=== PATIENT | male | born 1960 | race Caucasian/White ===

== ENCOUNTER → 2017-06-02 15:54 | Outpatient (CLI) | payer MEDICARE, SELFPAY ==
[2017-06-02 18:01] LABS: Absolute Lymphocyte Count 0.98 X10^3/ul (0.83-4.51); Absolute Neutrophil Count 3.7 X10^3/uL (2.0-7.7); Basophil# 0.01 X10^3/uL; Basophil% 0.2 % (0-1); Eosinophil# 0.11 X10^3/uL; Eosinophils% 2.1 % (0-5); Hematocrit 37.6 % (40-54); Hemoglobin 12.6 g/dl (13.0-16.5); Lymphocyte # 0.98 X10^3/ul (4.0); Mean Corp Hgb Conc 33.5 g/gl (32-36); Mean Corpuscular Volume 107.4 fL (80-94); Mean Platelet Vol. 9.7 fl (6.2-12.0); Monocyte# 0.33 X10^3/uL; Monocyte% 6.4 % (0-10); Neutrophil # 3.71 X10^3/uL (2.7-7.7); Neutrophil % 72.1 % (47-70); Platelet Count 113 K/mm3 (150-450); RBC Distribution Width CV 15.3 % (11.6-14.6); RBC Distribution Width SD 59.8 fl (35.1-43.9); White Blood Count 5.2 K/mm3 (4.4-11.0)
[2017-06-02 18:02] LABS: POSITIVE COUNT NO; POSITIVE DIFFERENTIAL NO; POSITIVE MORPHOLOGY NO
[2017-06-02 18:14] LABS: AST(SGOT) 19 U/L (15-37); Alanine Aminotransfer ALT/SGPT 24 U/L (16-61); Albumin, Serum 3.3 g/dL (3.2-5.0); Alkaline Phosphatase 39 U/L (45-117); Anion Gap 8 (5-15); BUN 19 mg/dL (7-18); BUN/Creat Ratio 16.2 RATIO (10-20); Calcium,Total 8.8 mg/dL (8.5-10.1); Chloride 107 mmol/L (98-107); Creatinine, Serum 1.17 mg/dL (0.70-1.30); EST Glomerular Filtration Rate 68 mL/min (>60); Est Glom Filt Rate - Afr Amer 82 mL/min (>60); Globulin 3.4 g/dL (2.2-4.2); Glucose 83 mg/dL (74-106); Protein, Total 6.7 g/dL (6.4-8.2); Sodium Level 140 mmol/L (136-145)
[2017-06-05 14:22] LABS: HIV-1 RNA by PCR, Quant. < 20 copies/mL (.)
== END ==
PROVIDERS: Family Provider Family Medicine; PCP Family Medicine; Visit Provider Internal Medicine Infectious Disease
DX: B20 Human immunodeficiency virus [HIV] disease (principal)
CPT/HCPCS: 36415; 80053; 85025; 87536

== ENCOUNTER → 2017-06-22 11:39 | Outpatient (CLI) | payer MEDICARE, SELFPAY ==
--- NOTE | 2017-06-22 12:39 | RAD_ITS ---
STUDY: SWALLOWING STUDY REASON FOR EXAM: Male, 57 years old. Dysphagia. TECHNIQUE: The examination was performed with Speech Pathology in attendance. Under fluoroscopic observation, the patient ingested thin barium, thick barium, barium pudding, and barium coated cracker. FLUOROSCOPY TIME: 1:44 minutes/seconds. 1598 spot images were obtained. RADIOLOGIST INVOLVEMENT: Radiologist was present and providing direct supervision. COMPARISON: Comparison is made with prior study dated October 25, 2017. FINDINGS: The following was observed during swallowing of the various mixtures of barium: Thin Barium: Transient penetration with ingestion of thin liquids. Thick Barium: There was no evidence of aspiration or laryngeal penetration. Barium Pudding: There was no evidence of aspiration or laryngeal penetration. Barium Coated Cracker: There was no evidence of aspiration or laryngeal penetration. RAD/Swallowing Function w/Video IMPRESSION: Transient penetration with ingestion of thin liquids. The swallow study findings were discussed with the patient by the speech pathologist at the conclusion of the examination. Please see speech pathology report for more information and recommendations. Electronically Signed: Sumanth Bellamy MD at 10:39 EDT Tel [phone], Service support ,
--- NOTE | 2017-06-22 12:45 | SP.MBSS_ITS ---
PRIMARY / SECONDARY DIAGNOSIS: severe dysphagia (R13.12) REFERRING PHYSICIAN: Dr. Solomon Johnson MD CURRENT DIET: regular-soft textures, nectar thickened liquids DENTITION: dentures MENTAL STATUS: WFL RESPIRATORY STATUS: O2 via room air PREVIOUS MODIFIED BARIUM SWALLOW STUDY: 04/24/2017 MBS revealed moderate oropharyngeal dysphagia (R13.12) with SILENT aspiration of thin liquids 12/04/2016 MBS revealed severe oropharyngeal dysphagia (R13.12) with SILENT aspiration of thin and nectar thickened liquids REASON FOR REFERRAL: Patient is a 57 year old male referred for a modified barium swallow (MBS) study to objectively assess the Patients oropharyngeal swallow function under fluoroscopy, with recent history of eosinophilic esophagitis along with prior identification of SILENT aspiration of thin and nectar thickened liquids under fluoroscopy. 04/09/2017 barium swallow study revealed normal plain film x-ray examination (barium swallow) of the esophagus. 11/24/2016 barium swallow study revealed normal plain film x-ray examination (barium swallow) of the esophagus. 05/05/2016 barium swallow study revealed small sliding hiatal hernia without gastroesophageal reflux. PEG tube placed 12/09/2016; still in place. Spoke with the Patients primarily outpatient therapist, Patient has not been compliant with his liquid diet level recommendation as suspected, education provided with samples and education regarding preparation of nectar thickened liquids, though suspect continued non-compliance despite efforts. Patient reports use of thickened liquids with exception of morning coffee and during intake of thin liquids following oral care. MEDICAL HISTORY: Human immunodeficiency virus (HIV) infection, chronic obstructive pulmonary disease, chronic back pain, esophageal dysphagia with esophageal strictures, esophageal ulcers, and eosinophilic esophagitis, poor dental hygiene, anemia, chronic renal failure, xerostomia, bipolar disorder (recent admission for suicidal ideations), pancytopenia, hypothyroidism, history of alcohol abuse, hyperlipidemia, hypothyroidism, and tobacco use. STUDY FINDINGS: Patient participated in a Modified Barium Swallow (MBS) study on 06/22/2017. Dr. Bellamy was the radiologist present for this evaluation. This study was recorded in the lateral view and images were sent to PACs for storage. The following consistencies were presented to this patient for analysis of oropharyngeal swallow function: thin liquids, pudding, and a regular textured, Deanna Doone cookie. Results of the MBS are as follows: PENETRATION / ASPIRATION SCALE (GONZALEZ): 1 = does not enter airway 2 = enters airway/above vocal folds/ejected 3 = enters airway/above vocal folds/not ejected 4 = enters airway/contacts vocal folds/ejected 5 = enters airway/contacts vocal folds/not ejected 6 = enters airway/below vocal folds/ejected 7 = enters airway/below vocal folds/not ejected despite effort 8 = enters airway/below vocal folds/no effort PENETRATION / ASPIRATION SCALE (SCORE): [place] thickened liquids via cup (single sip): 1 [place] thickened liquids via cup (single sip): 1 [place] thickened liquids via cup (single sip): 1 [place] thickened liquids via cup (chin tuck): 1 [place] thickened liquids via cup (chin tuck): 1 [place] thickened liquids via cup (chin tuck): 1 Pudding via spoon: 1 Regular textured cookie: 1 Thin liquids via cup (single sip): 2 Thin liquids via cup (single sip): 2 Thin liquids via cup (chin tuck): 2 Thin liquids via cup (chin tuck): 3 Thin liquids via straw (sequential swallows): 2 IMPRESSION: DIAGNOSIS: mild oropharyngeal dysphagia (R13.12) ORAL PHASE CHARACTERIZED BY: LABIAL SEAL: no labial escape TONGUE CONTROL DURING BOLUS MANIPULATION: posterior escape of less than half of bolus (thin liquids only) (improved) BOLUS PREPARATION / MASTICATION: slow prolonged chewing/mashing with complete recollection BOLUS TRANSPORT / LINGUAL MOTION: brisk tongue motion (improved) ORAL RESIDUE: trace residue lining oral structures PHARYNGEAL PHASE CHARACTERIZED BY: INITIATION OF PHARYNGEAL SWALLOW: bolus head in pyriforms at first hyoid excursion; bolus head at posterior laryngeal surface of epiglottis at first hyoid excursion with chin tuck posture SOFT PALATE ELEVATION: no bolus between soft palate and pharyngeal wall LARYNGEAL ELEVATION: partial superior movement of thyroid cartilage/partial approximation of arytenoids cartilage to epiglottic petiole ANTERIOR HYOID EXCURSION: partial anterior movement EPIGLOTTIC MOVEMENT: intermittent partial epiglottic inversion LARYNGEAL VESTIBULE CLOSURE AT HEIGHT OF SWALLOW: intermittent incomplete laryngeal vestibule closure with narrow column of air/contrast in laryngeal vestibule PHARYNGEAL STRIPPING WAVE: pharyngeal stripping wave present / complete PHARYNGOESOPHAGEAL SEGMENT OPENING: complete distension and complete duration with no obstruction of flow TONGUE BASE RETRACTION: trace column of contrast between tongue base and posterior pharyngeal wall (improved) PHARYNGEAL RESIDUE: intermittent collection of residue within or on pharyngeal structures ESOPHAGEAL PHASE CHARACTERIZED BY: ESOPHAGEAL BOLUS CLEARANCE IN THE UPRIGHT POSITION: could not view EFFECTS OF TREATMENT STRATEGIES ATTEMPTED: Chin tuck posture = effective Reduced bolus size = effective DIET TEXTURE RECOMMENDATIONS: Will recommend a regular-soft textured, nectar thickened liquid diet. COMPENSATORY STRATEGIES RECOMMENDED: Chin tuck, reduced bolus volume, avoid straws, seated upright at 90 degrees during PO intake, remain upright for 30-60 minutes post meal (GERD precaution), medications with applesauce prior to, during, and following administration. INTERPRETATION OF RESULTS: Patient presents with mild oropharyngeal dysphagia (R13.12) likely secondary to a combination of human immunodeficiency virus (HIV) infection, chronic obstructive pulmonary disease, presbyphagia, and general deconditioning. Oral phase primarily marked by mild mastication inefficiency; and continued (albeit improving) suboptimal lingual control resulting in premature bolus loss contributing to prandial penetration. Pharyngeal phase marked by mild to moderately impaired pharyngeal swallow onset timing contributing to prandial penetration of thin liquids; mild reduction in airway closure during deglutition contributing to prandial penetration; adequate pharyngeal motility. Inconsistent laryngeal vestibule pressure generated to expel penetrated material (albeit improving). All deficits ameliorated with bolus volume adjustments, diet texture adjustments, and execution of the chin tuck posture. Patient noted to SILENTLY aspirate with thin and nectar thickened liquids during previous MBS studies (04/24/2017, 12/04/2016); though no aspiration appreciated throughout trials throughout current study, unable to definitively rule out silent aspiration. RECOMMENDATIONS: Recommend a repeat modified barium swallow study within 6-8 weeks (if clinically appropriate) to further assess the presence and extent of silent and overt aspiration prior to advancement to thin liquids. Would caution advancement to thin liquids at this time, as the Patient has demonstrated a gradual improvement in swallow functioning, with suspected higher risk of pulmonary complications / intolerance of aspiration secondary to immunocompromising diagnosis. Suspect higher likelihood of non-compliance with dietary recommendations, with suspected current non-compliance with dietary recommendations (intermittent non-compliance reported). Would recommend caution in regards to removal of the Patients PEG tube; although the Patient is demonstrating improved PO tolerance, would consider the Patient at high risk of aspiration. Would consider implementation of the [place]rivast[place] Free Water Protocol ( FFWP) following Patient and family education IF the Patient has the adequate level of supervision, though would suspect the Patient would experience difficulty with comprehension and adequate implementation. Patient requires intensive skilled speech-language intervention targeting continued diet texture management; training and implementation of recommended compensatory strategies; training, implementation, and Patient education regarding implementation of the FFWP (if placement is appropriate); Patient and caregiver training targeting meal preparation / thickened liquid preparation. ADDITIONAL COMMENTS/RECOMMENDATIONS: Results and recommendations were discussed with the Patient immediately following MBS completion, with the Patient verbalizing understanding and agreement with all recommendations and education provided. IMAGE COUNT: [id number] G-CODES: SWALLOWING [id number] Current Status: CJ SWALLOWING G8997 Goal Status: CI SWALLOWING [id number] Discharge Status: CJ
== END ==
PROVIDERS: Family Provider Family Medicine; PCP Family Medicine; Visit Provider Family Medicine
DX: R13.10 Dysphagia, unspecified (principal)
CPT/HCPCS: 74230; 92611; G8996; G8997; G8998

== ENCOUNTER → 2017-08-10 12:40 | Outpatient (CLI) | payer MEDICARE, SELFPAY ==
--- NOTE | 2017-08-10 13:00 | SP.MBSS_ITS ---
PRIMARY / SECONDARY DIAGNOSIS: mild oropharyngeal dysphagia (R13.12) REFERRING PHYSICIAN: Dr. Solomon Johnson MD CURRENT DIET: regular-soft textures, nectar thickened liquids DENTITION: dentures MENTAL STATUS: WNL RESPIRATORY STATUS: O2 via room air PREVIOUS MODIFIED BARIUM SWALLOW STUDY: 04/24/2017 MBS revealed moderate oropharyngeal dysphagia (R13.12) with SILENT aspiration of thin liquids 12/04/2016 MBS revealed severe oropharyngeal dysphagia (R13.12) with SILENT aspiration of thin and nectar thickened liquids. 06/22/2017 MBS revealed mild oropharyngeal dysphagia (R13.12) with intermittent transient penetration of thin liquids REASON FOR REFERRAL: Patient is a 57 year old male referred for a modified barium swallow (MBS) study to objectively assess the Patients oropharyngeal swallow function under fluoroscopy, with recent history of eosinophilic esophagitis along with prior identification of SILENT aspiration of thin and nectar thickened liquids under fluoroscopy. PEG tube placed 12/09/2016; still in place. Patient reports use of thickened liquids with exception of morning coffee and during intake of thin liquids following oral care. 04/09/2017 barium swallow study revealed normal plain film x-ray examination ( barium swallow) of the esophagus. 11/24/2016 barium swallow study revealed normal plain film x-ray examination ( barium swallow) of the esophagus. 05/05/2016 barium swallow study revealed small sliding hiatal hernia without gastroesophageal reflux. MEDICAL HISTORY: Human immunodeficiency virus (HIV) infection, chronic obstructive pulmonary disease, chronic back pain, esophageal dysphagia with esophageal strictures, esophageal ulcers, and eosinophilic esophagitis, poor dental hygiene, anemia, chronic renal failure, xerostomia, bipolar disorder (recent admission for suicidal ideations), pancytopenia, hypothyroidism, history of alcohol abuse, hyperlipidemia, hypothyroidism, and tobacco use. STUDY FINDINGS: Patient participated in a Modified Barium Swallow (MBS) study on 06/10/2017. Dr. Bellamy was the radiologist present for this evaluation. This study was recorded in the lateral view and images were sent to PACs for storage. The following consistencies were presented to this patient for analysis of oropharyngeal swallow function: thin liquids, nectar thickened liquids, pudding , and a regular textured, Deanna Doone cookie. Results of the MBS are as follows: PENETRATION / ASPIRATION SCALE (GONZALEZ): 1 = does not enter airway 2 = enters airway/above vocal folds/ejected 3 = enters airway/above vocal folds/not ejected 4 = enters airway/contacts vocal folds/ejected 5 = enters airway/contacts vocal folds/not ejected 6 = enters airway/below vocal folds/ejected 7 = enters airway/below vocal folds/not ejected despite effort 8 = enters airway/below vocal folds/no effort VIDEOFLOROSCOPIC SCALE SCORE (GONZALEZ): Grade I = aspiration of material that has penetrated into the laryngeal vestibule, intact cough reflex Grade II = aspiration < 10 % of the bolus, intact cough reflex Grade III = aspiration of < 10 % of the bolus, reduced cough reflex or aspiration of > 10 % of the bolus, intact cough reflex Grade IV = aspiration of > 10 % of the bolus, reduced cough reflex PENETRATION / ASPIRATION SCALE (SCORE) WITH VIDEOFLOROSCOPIC SCALE SCORE: Thin liquids via straw (sequential swallows): 8 - Grade III Thin liquids via cup (chin tuck): 1 Thin liquids via cup (chin tuck): 2 Thin liquids via cup (chin tuck): 2 Thin liquids via cup (chin tuck): 2 Thin liquids via cup (single sip): 2 [place] thickened liquids via cup (single sip): 1 Boaz thickened liquids via cup (single sip): 2 [place] thickened liquids via cup (single sip): 1 [place] thickened liquids via cup (single sip): 1 [place]az thickened liquids via cup (single sip): 2 Pudding via spoon: 1 Regular textured cookie: 1 Boaz thickened liquids via cup (chin tuck): 2 IMPRESSION: DIAGNOSIS: moderate oropharyngeal dysphagia (R13.12) ORAL PHASE CHARACTERIZED BY: LABIAL SEAL: no labial escape TONGUE CONTROL DURING BOLUS MANIPULATION: posterior escape of less than half of bolus BOLUS PREPARATION / MASTICATION: slow prolonged chewing/mashing with complete recollection BOLUS TRANSPORT / LINGUAL MOTION: brisk tongue motion ORAL RESIDUE: trace residue lining oral structures PHARYNGEAL PHASE CHARACTERIZED BY: INITIATION OF PHARYNGEAL SWALLOW: bolus head in pyriforms at first hyoid excursion SOFT PALATE ELEVATION: no bolus between soft palate and pharyngeal wall LARYNGEAL ELEVATION: partial superior movement of thyroid cartilage/partial approximation of arytenoids cartilage to epiglottic petiole ANTERIOR HYOID EXCURSION: partial anterior movement EPIGLOTTIC MOVEMENT: intermittent partial epiglottic inversion LARYNGEAL VESTIBULE CLOSURE AT HEIGHT OF SWALLOW: incomplete laryngeal vestibule closure with narrow column of air/contrast in laryngeal vestibule PHARYNGEAL STRIPPING WAVE: pharyngeal stripping wave present / complete PHARYNGOESOPHAGEAL SEGMENT OPENING: complete distension and complete duration with no obstruction of flow TONGUE BASE RETRACTION: trace column of contrast between tongue base and posterior pharyngeal wall PHARYNGEAL RESIDUE: intermittent collection of residue within or on pharyngeal structures ESOPHAGEAL PHASE CHARACTERIZED BY: ESOPHAGEAL BOLUS CLEARANCE IN THE UPRIGHT POSITION: could not view EFFECTS OF TREATMENT STRATEGIES ATTEMPTED: Chin tuck posture = moderately effective Reduced bolus size = moderately effective Removal of straw = effective DIET TEXTURE RECOMMENDATIONS: Will recommend a regular-soft textured, nectar thickened liquid diet. COMPENSATORY STRATEGIES RECOMMENDED: Reduced bolus volume, avoid straws, seated upright at 90 degrees during PO intake, remain upright for 30-60 minutes post meal (GERD precaution), medications with applesauce prior to, during, and following administration. INTERPRETATION OF RESULTS: Patient presents with moderate oropharyngeal dysphagia (R13.12) likely secondary to a combination of human immunodeficiency virus (HIV) infection, chronic obstructive pulmonary disease, presbyphagia, and general deconditioning , with results similar in nature to the 06/22/2017 MBS with the exception of SILENT aspiration during sequential trials of thin liquids via straw. Oral phase primarily marked by mild mastication inefficiency; and continued suboptimal lingual control resulting in premature bolus loss contributing to prandial penetration. Pharyngeal phase marked by mild to moderately impaired pharyngeal swallow onset timing contributing to prandial penetration of thin liquids; mild reduction in airway closure during deglutition contributing to prandial penetration; adequate pharyngeal motility. Inconsistent laryngeal vestibule pressure generated to expel penetrated material. All deficits ameliorated with bolus volume adjustments, diet texture adjustments, and execution of the chin tuck posture. Patient noted to SILENTLY aspirate with thin liquids during the current and previous MBS studies (04/24/2017, 12/04/2016 ), with clinical assessment at bedside relying on identification of classic overt signs and symptoms of aspiration unreliable. RECOMMENDATIONS: Would caution advancement to thin liquids, with suspected higher risk of pulmonary complications / intolerance of aspiration secondary to immunocompromising diagnosis. Suspect higher likelihood of non-compliance with dietary recommendations, with suspected current non-compliance with dietary recommendations (intermittent non-compliance reported). Would recommend caution in regards to removal of the Patients PEG tube; although the Patient is demonstrating improved PO tolerance, would consider the Patient at high risk of aspiration. Would consider continued implementation of the Srivast[place] Free Water Protocol (FFWP) following Patient and family education IF the Patient has the adequate level of supervision, though would suspect the Patient would experience difficulty with comprehension and adequate implementation. Patient requires intensive skilled speech-language intervention targeting continued diet texture management; training and implementation of recommended compensatory strategies; training, implementation, and Patient education regarding implementation of the FFWP; Patient and caregiver training targeting meal preparation / thickened liquid preparation. ADDITIONAL COMMENTS/RECOMMENDATIONS: Results and recommendations were discussed with the Patient immediately following MBS completion, with the Patient verbalizing understanding and agreement with all recommendations and education provided. IMAGE COUNT: 1945 G-CODES: SWALLOWING [id number] Current Status: SWALLOWING G8997 Goal Status: SWALLOWING G8998 Discharge Status:
--- NOTE | 2017-08-10 13:04 | RAD_ITS ---
STUDY: SWALLOWING STUDY REASON FOR EXAM: Male, 57 years old. Dysphagia. TECHNIQUE: The examination was performed with Speech Pathology in attendance. Under fluoroscopic observation, the patient ingested thin barium, thick barium, barium pudding, and barium coated cracker. FLUOROSCOPY TIME: 2:20 minutes/seconds. 1945 spot radiographs were obtained. RADIOLOGIST INVOLVEMENT: Radiologist was present and providing direct supervision. COMPARISON: None. FINDINGS: The following was observed during swallowing of the various mixtures of barium: Thin Barium: Silent aspiration with ingestion of thin liquids. Intermittent penetration with ingestion of thin liquids with the chin tuck maneuver. Thick Barium: Intermittent penetration with ingestion of nectar thickened liquids. Barium Pudding: There was no evidence of aspiration or laryngeal penetration. Barium Coated Cracker: There was no evidence of aspiration or laryngeal penetration. RAD/Swallowing Function w/Video IMPRESSION: Silent aspiration with ingestion of thin liquids. The swallow study findings were discussed with the patient by the speech pathologist at the conclusion of the examination. Please see speech pathology report for more information and recommendations. Electronically Signed: Sumanth Bellamy MD at 13:44 EDT Tel [phone], Service support ,
== END ==
PROVIDERS: Family Provider Family Medicine; PCP Family Medicine; Visit Provider Family Medicine
DX: R13.10 Dysphagia, unspecified (principal)
CPT/HCPCS: 74230; 92611; G8996; G8997; G8998

== ENCOUNTER → 2017-09-21 15:26 | Outpatient (CLI) | payer MEDICARE, SELFPAY ==
[2017-09-21 17:30] LABS: Hematocrit 40.7 % (40-54); Hemoglobin 14.2 g/dl (13.0-16.5); Mean Corp Hgb Conc 34.9 g/gl (32-36); Mean Corpuscular Hgb 36.2 pg (27.0-32.0); Mean Corpuscular Volume 103.8 fL (80-94); Mean Platelet Vol. 10.2 fl (6.2-12.0); Platelet Count 156 K/mm3 (150-450); RBC Distribution Width SD 52.6 fl (35.1-43.9); Red Blood Count 3.92 M/mm3 (4.6-6.2); White Blood Count 9.8 K/mm3 (4.4-11.0)
[2017-09-21 17:39] LABS: Scan Indicated on CBC? Y/N NO
[2017-09-21 17:59] LABS: ALB/GLOB Ratio 0.9 RATIO (0.9-2.4); AST(SGOT) 15 U/L (15-37); Alanine Aminotransfer ALT/SGPT 28 U/L (16-61); Albumin, Serum 3.2 g/dL (3.2-5.0); Alkaline Phosphatase 81 U/L (45-117); Anion Gap 8 (5-15); BUN 20 mg/dL (7-18); Calcium,Total 8.7 mg/dL (8.5-10.1); Chloride 104 mmol/L (98-107); Creatinine, Serum 1.11 mg/dL (0.70-1.30); EST Glomerular Filtration Rate 72 mL/min (>60); Est Glom Filt Rate - Afr Amer 87 mL/min (>60); Globulin 3.5 g/dL (2.2-4.2); Glucose 90 mg/dL (74-106); Potassium 3.8 mmol/L (3.5-5.1); Protein, Total 6.7 g/dL (6.4-8.2); Sodium Level 140 mmol/L (136-145); T4 Free Direct 0.99 ng/dL (0.76-1.46); Thyroid Stim Hormone (TSH) 2.47 uIU/mL (0.358-3.74)
== END ==
PROVIDERS: Family Provider Family Medicine; PCP Family Medicine; Visit Provider Family Medicine
DX: R13.10 Dysphagia, unspecified (principal); E03.9 Hypothyroidism, unspecified
CPT/HCPCS: 36415; 80053; 84439; 84443; 85027

== ENCOUNTER → 2017-09-24 16:52 | Outpatient (CLI) | payer MEDICARE, SELFPAY ==
--- NOTE | 2017-09-24 16:54 | RAD_ITS ---
STUDY: X-RAY - PELVIS REASON FOR EXAM: Male, 57 years old. Pain TECHNIQUE: One view of the pelvis was obtained. COMPARISON: None. FINDINGS: There is a non-specific bowel gas pattern. Normal visualized soft tissue structures. Normal bilateral iliac wings, sacroiliac joints and visualized sacrum. Normal visualized bilateral superior and inferior pubic rami. Normal pubic symphysis. Normal ischial tuberosities. Normal visualized right femoral head. Normal right acetabulum. Normal right hip joint. Normal visualized left femoral head. Normal left acetabulum. Normal left hip joint. RAD/Pelvis 1 or 2 Views IMPRESSION: Normal x-ray examination of the pelvis. No fracture Electronically Signed: Aubrey Dinero, at 5:17 EDT Tel , Service support ,
--- NOTE | 2017-09-24 16:54 | RAD_ITS ---
STUDY: X-RAY - SACRUM/COCCYX REASON FOR EXAM: Male, 57 years old. Pain TECHNIQUE: 3 view(s) of the sacrum and coccyx were obtained. COMPARISON: None. FINDINGS: L5-S1 disc space narrowing with a 2 cm spondylolisthesis of L5 over S1. There are no fractures of the sacrococcygeal bones Electronically Signed: Aubrey Dinero, at 5:19 EDT Tel , Service support , RAD/Sacrum-Coccyx min 2 Views
== END ==
PROVIDERS: Family Provider Family Medicine; PCP Family Medicine; Visit Provider Anesthesiology Pain Medicine
DX: R10.2 Pelvic and perineal pain (principal); M43.17 Spondylolisthesis, lumbosacral region
CPT/HCPCS: 72170; 72220

== ENCOUNTER → 2017-10-28 07:23 | Outpatient (CLI) | payer MEDICARE, SELFPAY ==
[2017-10-28 08:09] LABS: Absolute Lymphocyte Count 2.49 X10^3/ul (0.83-4.51); Absolute Neutrophil Count 5.7 X10^3/uL (2.0-7.7); Basophil# 0.05 X10^3/uL; Basophil% 0.5 % (0-1); Eosinophils% 2.1 % (0-5); Hemoglobin 15.7 g/dl (13.0-16.5); Lymphocyte # 2.49 X10^3/ul (4.0); Lymphocyte % 26.6 % (19-41); Mean Corp Hgb Conc 34.9 g/gl (32-36); Mean Corpuscular Hgb 36.6 pg (27.0-32.0); Mean Corpuscular Volume 104.9 fL (80-94); Mean Platelet Vol. 9.9 fl (6.2-12.0); Monocyte# 0.81 X10^3/uL; Monocyte% 8.7 % (0-10); Neutrophil % 60.9 % (47-70); Platelet Count 196 K/mm3 (150-450); RBC Distribution Width CV 14.9 % (11.6-14.6); RBC Distribution Width SD 57.1 fl (35.1-43.9); Red Blood Count 4.29 M/mm3 (4.6-6.2); White Blood Count 9.4 K/mm3 (4.4-11.0)
[2017-10-28 08:15] LABS: POSITIVE COUNT NO; POSITIVE DIFFERENTIAL NO; POSITIVE MORPHOLOGY NO
[2017-10-28 08:29] LABS: ALB/GLOB Ratio 0.7 RATIO (0.9-2.4); AST(SGOT) 15 U/L (15-37); Alanine Aminotransfer ALT/SGPT 19 U/L (16-61); Albumin, Serum 3.1 g/dL (3.2-5.0); Alkaline Phosphatase 113 U/L (45-117); Anion Gap 7 (5-15); BUN 8 mg/dL (7-18); BUN/Creat Ratio 7.2 RATIO (10-20); Calcium,Total 9.1 mg/dL (8.5-10.1); Chloride 105 mmol/L (98-107); Cholesterol 216 mg/dL (200); Creatinine, Serum 1.11 mg/dL (0.70-1.30); EST Glomerular Filtration Rate 72 mL/min (>60); Est Glom Filt Rate - Afr Amer 87 mL/min (>60); Globulin 4.2 g/dL (2.2-4.2); Glucose 85 mg/dL (74-106); High Density Lipoprotein 24 mg/dL; Protein, Total 7.3 g/dL (6.4-8.2); Sodium Level 139 mmol/L (136-145); Triglycerides 314 mg/dL; Very Low Density Lipoprotein 63 mg/dL (5-40)
[2017-10-30 15:35] LABS: HIV-1 RNA by PCR, Quant. 40 copies/mL (.); LOG10 HIV-1 RNA 1.602 (.)
== END ==
PROVIDERS: Family Provider Family Medicine; PCP Family Medicine
DX: B20 Human immunodeficiency virus [HIV] disease (principal); E78.5 Hyperlipidemia, unspecified
CPT/HCPCS: 36415; 80053; 80061; 85025; 87536

== ENCOUNTER 2017-11-05 09:30 | Outpatient (RCR) | payer MEDICARE, SELFPAY ==
--- NOTE | 2017-06-11 11:24 | ST ---
PRIMARY / SECONDARY DIAGNOSIS: dysphagia (R13.12) REFERRING PHYSICIAN: Dr. Solomon Johnson MD CURRENT DIET: unclear: reports consumption of regular textures, thin liquids with PEG supplementation DENTITION: dentures MENTAL STATUS: suboptimal RESPIRATORY STATUS: O2 via room air PREVIOUS MODIFIED BARIUM SWALLOW STUDY: 12/04/2016 MBS revealed severe oropharyngeal dysphagia (R13.12) with SILENT aspiration of thin and nectar thickened liquids REASON FOR REFERRAL: Patient is a 56 year old male referred for a modified barium swallow (MBS) study to objectively assess the Patients oropharyngeal swallow function under fluoroscopy, with recent history of eosinophilic esophagitis along with prior identification of SILENT aspiration of thin and nectar thickened liquids under fluoroscopy. 04/09/2017 barium swallow study revealed normal plain film x-ray examination (barium swallow) of the esophagus. 11/24/2016 barium swallow study revealed normal plain film x-ray examination (barium swallow) of the esophagus. 05/05/2016 barium swallow study revealed small sliding hiatal hernia without gastroesophageal reflux. PEG tube placed 12/09/2016. MEDICAL HISTORY: Human immunodeficiency virus (HIV) infection, chronic obstructive pulmonary disease, chronic back pain, esophageal dysphagia with esophageal strictures, esophageal ulcers, and eosinophilic esophagitis, poor dental hygiene, anemia, chronic renal failure, xerostomia, bipolar disorder (recent admission for suicidal ideations), pancytopenia, hypothyroidism, history of alcohol abuse, hyperlipidemia, hypothyroidism, and tobacco use STUDY FINDINGS: Patient participated in a Modified Barium Swallow (MBS) study on 04/23/2017. Dr. Bellamy was the radiologist present for this evaluation. This study was recorded in the lateral view and images were sent to PACs for storage. The following consistencies were presented to this patient for analysis of oropharyngeal swallow function: thin liquids, nectar thickened liquids, pudding, and a regular textured, Deanna Doone cookie. Results of the MBS are as follows: PENETRATION / ASPIRATION SCALE (GONZALEZ): 1 = does not enter airway 2 = enters airway/above vocal folds/ejected 3 = enters airway/above vocal folds/not ejected 4 = enters airway/contacts vocal folds/ejected 5 = enters airway/contacts vocal folds/not ejected 6 = enters airway/below vocal folds/ejected 7 = enters airway/below vocal folds/not ejected despite effort 8 = enters airway/below vocal folds/no effort VIDEOFLOROSCOPIC SCALE SCORE (GONZALEZ): Grade I = aspiration of material that has penetrated into the laryngeal vestibule, intact cough reflex Grade II = aspiration < 10 % of the bolus, intact cough reflex Grade III = aspiration of < 10 % of the bolus, reduced cough reflex or aspiration of > 10 % of the bolus, intact cough reflex Grade IV = aspiration of > 10 % of the bolus, reduced cough reflex PENETRATION / ASPIRATION SCALE (SCORE) WITH VIDEOFLOROSCOPIC SCALE SCORE: Thin liquids via cup (sequential swallows): 6 Thin liquids via cup (sequential swallows): 3 Thin liquids via cup (single sip): 1 Thin liquids via cup (single sip): 4 Thin liquids via straw (single sip): 4 Thin liquids via straw (chin tuck): 2 Thin liquids via straw (chin tuck): 1 Thin liquids via straw (chin tuck): 1 Pudding via spoon: 1 Regular textured cookie: 1 Thin liquids via straw (chin tuck): 8 - Grade III Thin liquids via straw (chin tuck): 1 [place] thickened liquids via cup (single sip): 4 [place] thickened liquids via cup (chin tuck): 1 [place] thickened liquids via cup (chin tuck): 1 [place] thickened liquids via cup (chin tuck): 1 IMPRESSION: DIAGNOSIS: moderate oropharyngeal dysphagia (R13.12) ORAL PHASE CHARACTERIZED BY: LABIAL SEAL: no labial escape TONGUE CONTROL DURING BOLUS MANIPULATION: intermittent posterior escape of greater than half of bolus; consistent posterior escape of less than half of bolus BOLUS PREPARATION / MASTICATION: slow prolonged chewing/mashing with complete recollection (improved) BOLUS TRANSPORT / LINGUAL MOTION: delayed initiation of tongue motion (improved) ORAL RESIDUE: trace residue lining oral structures (improved) PHARYNGEAL PHASE CHARACTERIZED BY: INITIATION OF PHARYNGEAL SWALLOW: bolus head at posterior laryngeal surface of epiglottis at first hyoid excursion SOFT PALATE ELEVATION: no bolus between soft palate and pharyngeal wall LARYNGEAL ELEVATION: partial superior movement of thyroid cartilage/partial approximation of arytenoids cartilage to epiglottic petiole (improved) ANTERIOR HYOID EXCURSION: partial anterior movement (improved) EPIGLOTTIC MOVEMENT: partial epiglottic inversion LARYNGEAL VESTIBULE CLOSURE AT HEIGHT OF SWALLOW: incomplete laryngeal vestibule closure with narrow column of air/contrast in laryngeal vestibule PHARYNGEAL STRIPPING WAVE: pharyngeal stripping wave present / complete (improved) PHARYNGOESOPHAGEAL SEGMENT OPENING: complete distension and complete duration with no obstruction of flow (improved) TONGUE BASE RETRACTION: narrow column of contrast between tongue base and posterior pharyngeal wall PHARYNGEAL RESIDUE: collection of residue within or on pharyngeal structures (improved) primarily with more viscous textures ESOPHAGEAL PHASE CHARACTERIZED BY: ESOPHAGEAL BOLUS CLEARANCE IN THE UPRIGHT POSITION: could not view EFFECTS OF TREATMENT STRATEGIES ATTEMPTED: Chin tuck posture = effective Double swallow = effective Reduced bolus size = effective Removal of straw = effective DIET TEXTURE RECOMMENDATIONS: Will recommend a regular-soft textured, nectar thickened liquid diet. COMPENSATORY STRATEGIES RECOMMENDED: Chin tuck, reduced bolus volume, avoid straws, seated upright at 90 degrees during PO intake, remain upright for 30-60 minutes post meal (GERD precaution), medications with applesauce prior to, during, and following administration. INTERPRETATION OF RESULTS: Patient presents with moderate oropharyngeal dysphagia (R13.12) likely secondary to a combination of human immunodeficiency virus (HIV) infection, chronic obstructive pulmonary disease, presbyphagia, and general deconditioning. Oral phase primarily marked by mild mastication inefficiency; and continued suboptimal lingual control resulting in premature bolus loss contributing to pre-prandial penetration and aspiration. Pharyngeal phase marked by mild to moderate delayed pharyngeal swallow onset timing contributing to prandial and pre-prandial penetration and aspiration; mild to moderate reduced closure of the airway during deglutition contributing to prandial penetration; improved pharyngeal motility. Inconsistent laryngeal vestibule pressure generated to expel penetrated material. Patient noted to SILENTLY aspirate with thin liquids, with clinical assessment at bedside relying on identification of classic overt signs and symptoms of aspiration unreliable. RECOMMENDATIONS: Would strongly discourage advancement past nectar thickened liquids without completion of a repeat modified barium swallow study due to the extent of aspirate identified that was SILENT in nature. Recommend a repeat modified barium swallow study within 4-6 weeks (if clinically appropriate) to further assess the presence and extent of silent and overt aspiration prior to advancement to thin liquids. Suspect high likelihood of non-compliance with dietary recommendations, with suspected current non-compliance with dietary recommendations (states he was cleared to advance from dietary restrictions, though it is highly unlikely that a clinician would advance an individual with significant silent aspiration without completion of an objective assessment via MBS or FEES). Would recommend significant caution in regards to removal of the Patients PEG tube, as the Patient remains at high risk of aspiration, with multiple medical complications complicating the efficiency of the immune system, with the Patient at higher likelihood to again require intake supplementation with prolonged re-hospitalization. Would consider implementation of the Srivastava Free Water Protocol (FFWP) following Patient and family education IF the Patient has the adequate level of supervision, though would suspect the Patient would experience difficulty with comprehension and adequate implementation. Patient requires intensive skilled speech-language intervention targeting continued diet texture management; training and implementation of recommended compensatory strategies; training, implementation, and Patient education regarding implementation of the FFWP (if placement is appropriate); Patient and caregiver training targeting meal preparation / thickened liquid preparation. ADDITIONAL COMMENTS/RECOMMENDATIONS: Results and recommendations were discussed with the Patient immediately following MBS completion, with the Patient verbalizing understanding and agreement with all recommendations and education provided. IMAGE COUNT: [id number] G-CODES: SWALLOWING [id number] Current Status: CK SWALLOWING G8997 Goal Status: CK SWALLOWING [id number] Discharge Status: 04/24/17 1446 <Electronically signed by Fabrice Newberry M.A., CFY-BR[employer] SIDING APPLICATOR> Date Fabrice Newberry M.A., CFY-[employer] S[employer]ING APPLICATOR
--- NOTE | 2017-06-11 11:27 | HP.SP.AD_ITS ---
History - History Date of Eval: 06/11/17 Medical Diagnosis (from RX): Dysphagia Previous speech therapy: Yes Results: At [facility] while there for 7 weeks. Other Relevant Medical History/Diagnoses/Surgery: Alcoholism, Bipolar, HIV +, COPD, Eonsinophilia. Last summer patient became weaker and weaker and lost weight. Mental illness has been ongoing. Medications related to this diagnosis: Finasteride, Levothyroxine, SMz.tpm, Norvir, Prezista, Vitamin D, Tamsulosin, Fairlea, Quetiapine, Culturelle, Gabapentin, Metoclopram, Pimidone Smoking Status: Smoker, status unknown Hx Smoking: Yes - cigar Hx Tobacco Use: No - Pain Is pain an issue with your current prescribed condition?: No - Personal Education History: High school graduate. Occupation: Disability Right Hearing Abillity: Hard of Hearing Left Hearing Abillity: Hard of Hearing Visual Assistive Devices: Glasses Patients Living Arrangements: Alone Patient Allergies - Allergies Allergies cephalexin monohydrate [From Keflex] Allergy (Severe, Verified 05/07/17 11:31) Swelling Penicillins [PCN] Allergy (Severe, Verified 05/07/17 11:31) Unknown Subjective Oral Motor - Subjective Dentures ill fitting: Yes - Comments Comments: Dentures are loose but he uses therogrip to keep them in place. He said they stay in place usually well for 2 days. Objective Oral Motor - Oral Status Dentition: Upper Dentures - Labial Observation at Rest: WNL Pucker: WNL Retraction: WNL Alternating Pucker/Retraction: WNL Involuntary Movement noted: No - Lingual Impairment: Mild Protrusion: WNL Retraction: WNL Lateralization: WNL - Lingual Comments Comments: Elevation was mildly reduced. - Jaw Impairment: WNL Opening: WNL Closing: WNL - Respiratory Status Respiratory Status: Room Air Subjective Dysphagia - Symptoms Reported Symptoms/Problems with: Xerostomia, Hx of Aspiration - Current Diet Solids Current Diet: Soft - Current Diet Liquids Current Liquids: Thin Objective Dysphagia - Administered by Administered by: Self - [place] Thickened Liquids Administered via: Cup Symptoms: Throat Clearing Laryngeal Elevation: Impaired Positioning: Chin Tuck Other Positioning: Only intermittent use of chin tuck Oral Holding: No Gagging: No Patient Report: Patient reported no deficits. Comments: Noted wet vocal quality without using chin tuck one time out of three drinks. He intermittently used a chin tuck and a natural double swallow. - Results Swallowing Within Normal Limits: No Swallowing Diagnosis: Oropharyngeal Phase Dysphagia Severity: Moderate Modified Barium Results Hx MBS Report Entered: Yes MBS Results (from prior exam): 06/11/17 11:24 Speech Therapy by Ronaldo Plata PRIMARY / SECONDARY DIAGNOSIS: dysphagia (R13.12) REFERRING PHYSICIAN: Dr. Solomon Johnson MD CURRENT DIET: unclear: reports consumption of regular textures, thin liquids with PEG supplementation DENTITION: dentures MENTAL STATUS: suboptimal RESPIRATORY STATUS: O2 via room air PREVIOUS MODIFIED BARIUM SWALLOW STUDY: 12/04/2016 MBS revealed severe oropharyngeal dysphagia (R13.12) with SILENT aspiration of thin and nectar thickened liquids REASON FOR REFERRAL: Patient is a 56 year old male referred for a modified barium swallow (MBS) study to objectively assess the Patients oropharyngeal swallow function under fluoroscopy, with recent history of eosinophilic esophagitis along with prior identification of SILENT aspiration of thin and nectar thickened liquids under fluoroscopy. 04/09/2017 barium swallow study revealed normal plain film x-ray examination (barium swallow) of the esophagus. 11/24/2016 barium swallow study revealed normal plain film x-ray examination (barium swallow) of the esophagus. 05/05/2016 barium swallow study revealed small sliding hiatal hernia without gastroesophageal reflux. PEG tube placed 12/09/2016. MEDICAL HISTORY: Human immunodeficiency virus (HIV) infection, chronic obstructive pulmonary disease, chronic back pain, esophageal dysphagia with esophageal strictures, esophageal ulcers, and eosinophilic esophagitis, poor dental hygiene, anemia, chronic renal failure, xerostomia, bipolar disorder (recent admission for suicidal ideations), pancytopenia, hypothyroidism, history of alcohol abuse, hyperlipidemia, hypothyroidism, and tobacco use STUDY FINDINGS: Patient participated in a Modified Barium Swallow (MBS) study on 04/23/2017. Dr. Bellamy was the radiologist present for this evaluation. This study was recorded in the lateral view and images were sent to PACs for storage. The following consistencies were presented to this patient for analysis of oropharyngeal swallow function: thin liquids, nectar thickened liquids, pudding , and a regular textured, Deanna Doone cookie. Results of the MBS are as follows: PENETRATION / ASPIRATION SCALE (GONZALEZ): 1 = does not enter airway 2 = enters airway/above vocal folds/ejected 3 = enters airway/above vocal folds/not ejected 4 = enters airway/contacts vocal folds/ejected 5 = enters airway/contacts vocal folds/not ejected 6 = enters airway/below vocal folds/ejected 7 = enters airway/below vocal folds/not ejected despite effort 8 = enters airway/below vocal folds/no effort VIDEOFLOROSCOPIC SCALE SCORE (GONZALEZ): Grade I = aspiration of material that has penetrated into the laryngeal vestibule, intact cough reflex Grade II = aspiration < 10 % of the bolus, intact cough reflex Grade III = aspiration of < 10 % of the bolus, reduced cough reflex or aspiration of > 10 % of the bolus, intact cough reflex Grade IV = aspiration of > 10 % of the bolus, reduced cough reflex PENETRATION / ASPIRATION SCALE (SCORE) WITH VIDEOFLOROSCOPIC SCALE SCORE: Thin liquids via cup (sequential swallows): 6 Thin liquids via cup (sequential swallows): 3 Thin liquids via cup (single sip): 1 Thin liquids via cup (single sip): 4 Thin liquids via straw (single sip): 4 Thin liquids via straw (chin tuck): 2 Thin liquids via straw (chin tuck): 1 Thin liquids via straw (chin tuck): 1 Pudding via spoon: 1 Regular textured cookie: 1 Thin liquids via straw (chin tuck): 8 - Grade III Thin liquids via straw (chin tuck): 1 [place] thickened liquids via cup (single sip): 4 [place] thickened liquids via cup (chin tuck): 1 [place] thickened liquids via cup (chin tuck): 1 [place] thickened liquids via cup (chin tuck): 1 IMPRESSION: DIAGNOSIS: moderate oropharyngeal dysphagia (R13.12) ORAL PHASE CHARACTERIZED BY: LABIAL SEAL: no labial escape TONGUE CONTROL DURING BOLUS MANIPULATION: intermittent posterior escape of greater than half of bolus; consistent posterior escape of less than half of bolus BOLUS PREPARATION / MASTICATION: slow prolonged chewing/mashing with complete recollection (improved) BOLUS TRANSPORT / LINGUAL MOTION: delayed initiation of tongue motion (improved ) ORAL RESIDUE: trace residue lining oral structures (improved) PHARYNGEAL PHASE CHARACTERIZED BY: INITIATION OF PHARYNGEAL SWALLOW: bolus head at posterior laryngeal surface of epiglottis at first hyoid excursion SOFT PALATE ELEVATION: no bolus between soft palate and pharyngeal wall LARYNGEAL ELEVATION: partial superior movement of thyroid cartilage/partial approximation of arytenoids cartilage to epiglottic petiole (improved) ANTERIOR HYOID EXCURSION: partial anterior movement (improved) EPIGLOTTIC MOVEMENT: partial epiglottic inversion LARYNGEAL VESTIBULE CLOSURE AT HEIGHT OF SWALLOW: incomplete laryngeal vestibule closure with narrow column of air/contrast in laryngeal vestibule PHARYNGEAL STRIPPING WAVE: pharyngeal stripping wave present / complete ( improved) PHARYNGOESOPHAGEAL SEGMENT OPENING: complete distension and complete duration with no obstruction of flow (improved) TONGUE BASE RETRACTION: narrow column of contrast between tongue base and posterior pharyngeal wall PHARYNGEAL RESIDUE: collection of residue within or on pharyngeal structures ( improved) primarily with more viscous textures ESOPHAGEAL PHASE CHARACTERIZED BY: ESOPHAGEAL BOLUS CLEARANCE IN THE UPRIGHT POSITION: could not view EFFECTS OF TREATMENT STRATEGIES ATTEMPTED: Chin tuck posture = effective Double swallow = effective Reduced bolus size = effective Removal of straw = effective DIET TEXTURE RECOMMENDATIONS: Will recommend a regular-soft textured, nectar thickened liquid diet. COMPENSATORY STRATEGIES RECOMMENDED: Chin tuck, reduced bolus volume, avoid straws, seated upright at 90 degrees during PO intake, remain upright for 30-60 minutes post meal (GERD precaution), medications with applesauce prior to, during, and following administration. INTERPRETATION OF RESULTS: Patient presents with moderate oropharyngeal dysphagia (R13.12) likely secondary to a combination of human immunodeficiency virus (HIV) infection, chronic obstructive pulmonary disease, presbyphagia, and general deconditioning. Oral phase primarily marked by mild mastication inefficiency; and continued suboptimal lingual control resulting in premature bolus loss contributing to pre-prandial penetration and aspiration. Pharyngeal phase marked by mild to moderate delayed pharyngeal swallow onset timing contributing to prandial and pre-prandial penetration and aspiration; mild to moderate reduced closure of the airway during deglutition contributing to prandial penetration; improved pharyngeal motility. Inconsistent laryngeal vestibule pressure generated to expel penetrated material. Patient noted to SILENTLY aspirate with thin liquids, with clinical assessment at bedside relying on identification of classic overt signs and symptoms of aspiration unreliable. RECOMMENDATIONS: Would strongly discourage advancement past nectar thickened liquids without completion of a repeat modified barium swallow study due to the extent of aspirate identified that was SILENT in nature. Recommend a repeat modified barium swallow study within 4-6 weeks (if clinically appropriate) to further assess the presence and extent of silent and overt aspiration prior to advancement to thin liquids. Suspect high likelihood of non-compliance with dietary recommendations, with suspected current non-compliance with dietary recommendations (states he was cleared to advance from dietary restrictions, though it is highly unlikely that a clinician would advance an individual with significant silent aspiration without completion of an objective assessment via MBS or FEES). Would recommend significant caution in regards to removal of the Patients PEG tube, as the Patient remains at high risk of aspiration, with multiple medical complications complicating the efficiency of the immune system , with the Patient at higher likelihood to again require intake supplementation with prolonged re-hospitalization. Would consider implementation of the Srivastava Free Water Protocol (FFWP) following Patient and family education IF the Patient has the adequate level of supervision, though would suspect the Patient would experience difficulty with comprehension and adequate implementation. Patient requires intensive skilled speech-language intervention targeting continued diet texture management; training and implementation of recommended compensatory strategies; training, implementation, and Patient education regarding implementation of the FFWP (if placement is appropriate); Patient and caregiver training targeting meal preparation / thickened liquid preparation. ADDITIONAL COMMENTS/RECOMMENDATIONS: Results and recommendations were discussed with the Patient immediately following MBS completion, with the Patient verbalizing understanding and agreement with all recommendations and education provided. IMAGE COUNT: [id number] G-CODES: SWALLOWING [id number] Current Status: CK SWALLOWING G8997 Goal Status: CK SWALLOWING [id number] Discharge Status: 04/24/17 1446 <Electronically signed by Fabrice Newberry M.A., CFY-[employer]MON[employer] PASTE MIXER> Date Fabrice Newberry M.A., CFY-[employer]MON[employer] PASTE MIXER Electronically signed by Ronaldo Plata M.A., [facility]-ALMON[employer] PASTE MIXER on 06/11/17 11:25 Initialized on 06/11/17 11:24 - END OF NOTE Dysphagia Assessment - Swallowing Impairment Contributing Factors to Swallowing Impairment: Reduced Laryngeal Excursion - Impact Impact on Safety & Functioning: Risk for Aspiration - Recommendations Modified Barium Swallow/Cookie Swallow Recommended: Yes - Diet Texture Recommendations Liquids: [place] Thick - Safety Saftey Precautions/Swallowing Recommendations (Check all that Apply): Upright Position at Least 30 Minutes After Meals, No Straw, Multiple Swallows - Compensatory Strategies Compensatory Strategies: Chin Tuck, Double Swallow Other Impressions - Comments Compliance -: Brett has not been compliant with his liquid diet level recommendation. He was given extensive education on why to thicken liquids. He was given samples of thickener. Plan - Plan Plan: Repeat MBS before treatment is planned. Goals will be added as appropriate and necessasry. - Recommendations MBS: Yes - Prognosis Prognosis: Good - Goal #1-5 Goal #1: Goals pending MBS. Education - Patient has Indicated that the Following Identified Educational Needs: None The Patient has indicated that they have no educational or learning abilities that may effect their care.: Yes - Patient Instruction Patient Education: Diagnosis, Treatment Plan, Goals, Safety Precautions, Diet Level Person Taught: Patient Teaching Method: Discussion Response to teaching: Verbalize understanding
--- NOTE | 2017-11-05 12:52 | HP.SP.DC_ITS ---
ST Discharge Summary - Discharged: Discharge: The Patient has participated in 5 skilled speech-language intervention sessions targeting moderate oropharyngeal dysphagia (R13.12) likely secondary to a combination of human immunodeficiency virus (HIV) infection, chronic obstructive pulmonary disease, presbyphagia, and general deconditioning, with grade III SILENT aspiration identified under fluoroscopy. The Patient currently is managing diet preparation without complication (nectar thickened liquids) and has demonstrated sufficient execution of postural adjustments to facilitate optimal intake safety, though admits to non- compliance with morning coffee / intermittently during intake of coffee during AA meetings, and occasional intake of thin liquid soda. Patient fully aware and able to express aspiration risk and potential medical complications with recurrent aspiration, with continued intention to continue with current level of adherence due to considerations for quality of life, which is reasonable given demonstrated level of insight. The Patient is considered at higher risk of pulmonary complications associated with aspiration when considering medical diagnosis (HIV) and nature of aspiration (silent). Patient reporting that he was recently prescribed Quetiapine / Seroquel, which does have an association with silent aspiration (though would caution direct attribution), again further questions diagnosis of chronic obstructive pulmonary disease, as both were identified as potential risk factors for silent aspiration. At current juncture all goals have been met, with both this clinician and the Patent agree to advance with discharge
== END 2017-11-05 19:00 | disposition home or self-care (01) ==
LOC: SP 09:30
PROVIDERS: Family Provider Family Medicine; PCP Family Medicine; Visit Provider Family Medicine
DX: R49.0 Dysphonia (principal)
CPT/HCPCS: 92526

== ENCOUNTER → 2017-11-16 15:03 | Outpatient (CLI) | payer MEDICARE, SELFPAY | PROVIDERS: Family Provider Family Medicine; PCP Family Medicine; Visit Provider Anesthesiology Pain Medicine | DX: M54.16 Radiculopathy, lumbar region (principal); M51.36 Other intervertebral disc degeneration, lumbar region; M54.5 Low back pain; M54.18 Radiculopathy, sacral and sacrococcygeal region; M51.37 Other intervertebral disc degeneration, lumbosacral region; M46.1 Sacroiliitis, not elsewhere classified | CPT/HCPCS: 72148 ==

== ENCOUNTER 2017-12-30 15:30 | Outpatient (RCR) | payer MEDICARE, SELFPAY ==
--- NOTE | 2017-12-02 09:28 | HP.PTEVAL_ITS ---
Patient's Visit Information KATHYA YORK is a 57 year old M referred to Physical Therapy by Issa Snow with a diagnosis of BACK AND NECK PAIN. Date of Evaluation: 12/02/17 Physical Therapist: Tia Razo - Visit Plan Frequency: 2-3x /Week Duration: 4-6 Weeks Plan: *NO LUMBAR EXTENSION* POSTURE CORRECTION/STRENGTHENING, INSTRUCTION IN APPROPRIATE BODY MECHANICS AND ACTIVITY MODIFICATIONS. DLS WITH NEUTRAL SPINE. ALLISON LE ROM, STRETCHING AND STRENGTHENING. *FOCUS ON WRITTEN HEP INSTRUCTION* - Subjective Subjective: Work/Leisure: UNEMPLOYEED. Disability: YES - BIPOLAR DISORDER. Present symptoms: ALLISON LOW BACK PAIN LEFT > RIGHT. LEFT HIP PAIN. Present since: YEARS AGO. Pain Scale: WORST 8/10, LEAST 1/10. Currently: 07/07. Commenced as a result of: ARTHRITIS. Symptoms at onset: BACK. Worse: SHOPPING AT [employer] YESTERDAY - CAUSED PINCHING IN LEFT HIP. BENDING, LIFTING, STANDING, WALKING, TWISTING, MOVING FAST. Better: [facility]. HAS BEEN SLEEPING IN [place] FOR 35 YEARS BECAUSE OF BACK. Disturbed sleep: NO. Previous history/Previous treatment: NO BACK OR HIP PAIN EXCEPT VARICOSE SX LEFT HIP ABOUT 10 YEARS AGO. PAIN MGMT. LAST INJECTION WAS IN LEFT HIP ABOUT 10 DAYS AGO. LONG HISTORY OF RICO'S. DEC 2016 WAS IN HOSPITAL THEN WENT TO REHAB FOR RECONDITIONING AT THE [facility]. CHIROPRACTIC ABOUT 20 YEARS AGO. Coughing/sneezing/straining: POSITIVE. Gait: USES THE CANE OUT OF HOME USUALLY FOR BALANCE BUT DOES NOT USE AD IN HOME. Difficulty initiating urinatin : NO. Accidents: NO. Unexplained weight loss: NO. Imaging: RECENT LUMBAR MRI: MRI/Spine Lumbar (Routine). 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 PMH: RECOVERING ACOHOLIC - 10 YEARS SOBER. G-TUBE FOR NUTRITION - HAS HAD IT FOR A YEAR. HIV POSITIVE. - Objective Sitting/Standing Posture: POOR. VERY SLOUCHED. FORWARD HEAD AND SHOULDERS. RIGHT ILIAC CREST HIGHER THAN LEFT. Lordosis: REDUCED. Active Correction of posture: WORSE. Other Observations: THIS PATIENT AMBULATES INDEP'LY INTO PT WITH A STRAIGHT CANE AND NO LOSS OF BALANCE. HE IS UNABLE TO TRANSFER FROM SIT TO STAND WITHOUT UE ASSIST. HE HAS POOR POSTURAL STRENGTH. Motor deficit: RIGHT LE 5/5. LLE: HIP 3+/5, KNEE EXT 4-/5, KNEE FLEX 4-/5, ANKLE 4/5. Sensory deficit: NO. ROM deficit: VERY TIGHT HIP FLEXORS, HS'S AND GASTROC SOLEUS COMPLEX'S. Dural Signs: NEGATIVE ALLISON LE'S. Lumbar mvmt loss: flex - MIN. ext - NT. R SG - SIMEON. L SG - SIMEON. Core strength: POOR. Palpation: TENDERNESS OF LEFT LUMBOSACRAL AREA AND AROUND ILIAC CREST INTO GREATER TROCH. - Goals Goal 1:: DECREASE C/O BACK AND LEFT HIP PAIN Goal Time Frame: 4-6 Weeks Goal 2:: IMPROVE PERSONAL CARE, LIFTING, WALKING, SITTING, STANDING, SOCIAL LIFE , TRAVEL AND HOMEMAKING FUNCTION. Goal Time Frame: 4-6 Weeks Goal 3:: INSTRUCT IN PROPHYLAXIS Goal Time Frame: 4-6 Weeks - Rehabilitation Potential Rehabilitation Potential: Fair - Anticipated Interventions Patient/Client Instruction: Educate patient on: Condition, Plan of Care, Risk Factors, Benefits of Fitness Program For the Purpose of:: To improve self management Therapeutic Exercise to Include: Strength training, Balance training, Body mechanics, Postural training, Flexibilty training, Active ROM, Dynamic Lumbar Stabilization, Scapular Strength/Stabilization For the Purpose of:: To decrease pain, To increase ROM, To improve muscle performance and motor function, To increase tolerance to activity/condition/ position, To improve ability of physical actions for home/community/work/leisure , To improve gait and locomotor functions Thank you for the opportunity to evaluate your patient. For Medicare and Medicare HMO plans, please review the plan of care and approve it. It will need to be FAXED BACK to us at [phone] for Medicare purposes. Please let me know if there are questions or concerns regarding this plan of care. Physician Signature: Date:
--- NOTE | 2017-12-30 15:55 | HP.PTDCSUM ---
HP - PT D/C Summary It has been my pleasure to treat KATHYA YORK under orders from Issa Snow, for the diagnosis of BACK AND NECK PAIN for a total of 10 visit(s). Discharge Date: Please see the following information for a summary of their discharge status. - Subjective Subjective: PATIENT REPORTS HE DOESN'T HAVE THAT PINCH IN HIS HIP ANYMORE AND HE CAN WALK AROUND BETTER. HE STATES HE IS DOING GOOD AND HE IS NOW ABLE TO PRETTY MUCH DO EVERYTHING AT HOME THAT HE DOES HERE. HAVING SOME UPPER BACK PAIN AND GETTING AN INJECTION TOMORROW FOR IT. 1/10 LEFT HIP PAIN AT WORST NOW IF HE WALKS TOO MUCH. LIKES TO STILL USE HIS CANE FOR BALANCE. REPORTS HE IS ABLE TO WALK UP STEPS STEP OVER STEP NOW. - Pain LEFT GROIN/ILIAC CREST/BACK Pain Intensity (Out of 10): 0 Mid-back Pain Intensity (Out of 10): 1 - Overall Improvement % Improvement: 90 - Objective Objective/Function: ALL GOALS HAVE BEEN MET. HIS PAIN IS ALMOST GONE, HIS LLE STRENGHT IS IMPROVED AND HIS WALKING FUNCTION HAS IMPROVED. HE IS ALSO INDEP WITH A HEP. Active Correction of posture: WORSE. Other Observations: THIS PATIENT AMBULATES INDEP'LY INTO PT WITH A STRAIGHT CANE AND NO LOSS OF BALANCE. HE IS STILL UNABLE TO TRANSFER FROM SIT TO STAND WITHOUT UE ASSIST FROM OUR CHAIRS. HE STILL HAS POOR POSTURAL STRENGTH. Motor deficit: RIGHT LE 5/5. LLE: 5/5 WITH MMT'ING NOW. Sensory deficit: NO. ROM deficit: STILL WITH TIGHT HIP FLEXORS, HS'S AND GASTROC SOLEUS COMPLEX'S. Dural Signs: NEGATIVE ALLISON LE'S. Lumbar mvmt loss: flex - MIN. ext - NT. R SG - SIMEON. L SG - SIMEON. Core strength: POOR. Palpation: THERE IS NO TENDERNESS OF LEFT LUMBOSACRAL AREA AND AROUND ILIAC CREST INTO GREATER TROCH. REGIONS NOW. LUMBAR OSWESTRY HAS NOT CHANGED SIGNIFICANTLY BUT PATIENT REPORTS THE QUESTIONS DON'T ALWAYS HAVE AN ANSWER THAT FITS. - Goals Goal 1:: DECREASE C/O BACK AND LEFT HIP PAIN Goal Progress: Goal Met Goal 2:: IMPROVE PERSONAL CARE, LIFTING, WALKING, SITTING, STANDING, SOCIAL LIFE, TRAVEL AND HOMEMAKING FUNCTION. Goal Progress: Progressing Goal 3:: INSTRUCT IN PROPHYLAXIS Goal Progress: Goal Met - Plan Plan: D/C TO HEP. PATIENT AGREEABLE. - D/C Information If there are questions or concerns regarding this patient's physical therapy, please feel free to call me at [phone]. Thank you for the referral of this patient. Sincerely, Tia Razo
== END 2017-12-30 19:00 | disposition home or self-care (01) ==
LOC: PT 15:30
PROVIDERS: Family Provider Family Medicine; PCP Family Medicine; Visit Provider Anesthesiology Pain Medicine
DX: M54.9 Dorsalgia, unspecified (principal); M54.2 Cervicalgia
CPT/HCPCS: 97110; 97162; 97164; 97530

== ENCOUNTER → 2018-03-03 08:12 | Outpatient (CLI) | payer MEDICARE, SELFPAY ==
[2018-03-02 16:59] VITALS: BMI 20.9
[2018-03-03 10:14] LABS: Absolute Lymphocyte Count 2.22 X10^3/ul (0.83-4.51); Absolute Neutrophil Count 4.8 X10^3/uL (2.0-7.7); Basophil# 0.04 X10^3/uL; Basophil% 0.5 % (0-1); Eosinophil# 0.32 X10^3/uL; Eosinophils% 3.9 % (0-5); Hematocrit 42.6 % (40-54); Hemoglobin 14.6 g/dl (13.0-16.5); Lymphocyte # 2.22 X10^3/ul (4.0); Lymphocyte % 27.3 % (19-41); Mean Corp Hgb Conc 34.3 g/gl (32-36); Mean Corpuscular Hgb 35.9 pg (27.0-32.0); Mean Corpuscular Volume 104.7 fL (80-94); Monocyte# 0.71 X10^3/uL; Monocyte% 8.7 % (0-10); Neutrophil # 4.81 X10^3/uL (2.7-7.7); Neutrophil % 59.4 % (47-70); Platelet Count 190 K/mm3 (150-450); RBC Distribution Width CV 13.9 % (11.6-14.6); RBC Distribution Width SD 52.9 fl (35.1-43.9); Red Blood Count 4.07 M/mm3 (4.6-6.2); White Blood Count 8.1 K/mm3 (4.4-11.0)
[2018-03-03 10:18] LABS: POSITIVE COUNT NO; POSITIVE DIFFERENTIAL NO; POSITIVE MORPHOLOGY NO
[2018-03-03 10:40] LABS: BUN 16 mg/dL (7-18); Creatinine, Serum 1.21 mg/dL (0.70-1.30); Glucose 74 mg/dL (74-106)
[2018-03-03 10:41] LABS: ALB/GLOB Ratio 0.8 RATIO (0.9-2.4); AST(SGOT) 22 U/L (15-37); Alanine Aminotransfer ALT/SGPT 20 U/L (16-61); Albumin, Serum 3.2 g/dL (3.2-5.0); Alkaline Phosphatase 76 U/L (45-117); Anion Gap 8 (5-15); BUN/Creat Ratio 13.2 RATIO (10-20); Calcium,Total 9.3 mg/dL (8.5-10.1); Chloride 107 mmol/L (98-107); Cholesterol 232 mg/dL (200); EST Glomerular Filtration Rate 65 mL/min (>60); Est Glom Filt Rate - Afr Amer 79 mL/min (>60); Globulin 3.9 g/dL (2.2-4.2); High Density Lipoprotein 27 mg/dL; Potassium 3.8 mmol/L (3.5-5.1); Protein, Total 7.1 g/dL (6.4-8.2); Sodium Level 140 mmol/L (136-145); Triglycerides 271 mg/dL; Very Low Density Lipoprotein 54 mg/dL (5-40)
[2018-03-04 12:07] LABS: Absolute CD4 Helper 1076 /uL (359-1519); Basophils (Absolute) 0 x10E3/uL (0.0-0.2); Eosinophils 4 % (Not Estab.); Eosinophils (Absolute) 0.3 x10E3/uL (0.0-0.4); Hematocrit 41.2 % (37.5-51.0); Hemoglobin 14.1 g/dL (13.0-17.7); Immature Granulocytes 0 % (Not Estab.); Lymphs 29 % (Not Estab.); Lymphs (Absolute) 2.6 x10E3/uL (0.7-3.1); MCH 35.3 pg (26.6-33.0); MCHC 34.2 g/dL (31.5-35.7); MCV 103 fL (79-97); Monocytes 8 % (Not Estab.); Monocytes (Absolute) 0.8 x10E3/uL (0.1-0.9); Neutrophils 59 % (Not Estab.); Neutrophils (Absolute) 5.3 x10E3/uL (1.4-7.0); Percent % CD4 Pos. Lymph. 41.4 % (30.8-58.5); Platelets 202 x10E3/uL (150-379); RDW 14.4 % (12.3-15.4)
[2018-03-05 11:58] LABS: Immature Granulocytes Absolute 0 x10E3/uL (0.0-0.1)
[2018-03-07 09:50] LABS: HIV-1 RNA by PCR, Quant. 60 copies/mL (.); LOG10 HIV-1 RNA 1.778 (.)
== END ==
PROVIDERS: Family Provider Family Medicine; PCP Family Medicine; Referring Provider Internal Medicine Infectious Disease; Visit Provider Internal Medicine Infectious Disease
DX: B20 Human immunodeficiency virus [HIV] disease (principal); E78.5 Hyperlipidemia, unspecified
CPT/HCPCS: 36415; 80053; 80061; 85025; 86361; 87536

== ENCOUNTER → 2018-03-17 12:17 | Outpatient (CLI) | payer MEDICARE, SELFPAY ==
[2018-03-02 16:59] VITALS: BMI 20.9
--- NOTE | 2018-03-17 12:55 | RAD_ITS ---
STUDY: SWALLOWING STUDY REASON FOR EXAM: Male, 57 years old. Dysphagia. TECHNIQUE: The examination was performed with Speech Pathology in attendance. Under fluoroscopic observation, the patient ingested thin barium, thick barium, barium pudding, and barium coated cracker. FLUOROSCOPY TIME: 1:48 minutes/seconds. 1508 fluoroscopic images were obtained. RADIOLOGIST INVOLVEMENT: Radiologist was present and providing direct supervision. COMPARISON: Comparison is made with prior study August 10, 2017. FINDINGS: The following was observed during swallowing of the various mixtures of barium: Thin Barium: Transient penetration with ingestion of thin liquids. Thick Barium: There was no evidence of aspiration or laryngeal penetration. Barium Pudding: There was no evidence of aspiration or laryngeal penetration. Barium Coated Cracker: There was no evidence of aspiration or laryngeal penetration. RAD/Swallowing Function w/Video IMPRESSION: Transient penetration with ingestion of thin liquids. The swallow study findings were discussed with the patient by the speech pathologist at the conclusion of the examination. Please see speech pathology report for more information and recommendations. Electronically Signed: Sumanth Bellamy MD at 14:29 EST Tel [phone], Service support ,
--- NOTE | 2018-03-17 13:00 | SP.MBSS_ITS ---
PRIMARY / SECONDARY DIAGNOSIS: dysphagia (R13.10) REFERRING PHYSICIAN: Dr. Solomon Johnson MD CURRENT DIET: regular-soft textures, thin liquids DENTITION: dentures MENTAL STATUS: WNL RESPIRATORY STATUS: O2 via room air PREVIOUS MODIFIED BARIUM SWALLOW STUDY: 04/24/2017 MBS revealed moderate oropharyngeal dysphagia (R13.12) with SILENT aspiration of thin liquids 12/04/2016 MBS revealed severe oropharyngeal dysphagia (R13.12) with SILENT aspiration of thin and nectar thickened liquids. 06/22/2017 MBS revealed mild oropharyngeal dysphagia (R13.12) with intermittent transient penetration of thin liquids 08/10/2017 MBS revealed moderate oropharyngeal dysphagia (R13.12) with grade III SILENT aspiration of thin liquids. REASON FOR REFERRAL: The Patient is a 57 year old male referred for a repeat modified barium swallow (MBS) study to objectively assess the Patients oropharyngeal swallow function under fluoroscopy, with recent history of eosinophilic esophagitis along with prior identification of SILENT aspiration of thin and nectar thickened liquids under fluoroscopy. PEG tube placed 12/09/2016; still in place. Patient advanced to thin liquids following most recent MBS without subjective complications or development of aspiration related pulmonary complications. Of note, the Patient reports recent adjustments to his medication regimen (Topiramate 125 x2 TID; replacing Primidone) with resulting reduction in attention / sustained attention and onset of fatigue (states that he cannot sit for long, as he will quickly fall asleep). ADDITIONAL OBJECTIVE ASSESSMENT RESULTS: 04/09/2017 barium swallow study revealed normal plain film x-ray examination (barium swallow) of the esophagus. 11/24/2016 barium swallow study revealed normal plain film x-ray examination (barium swallow) of the esophagus. 05/05/2016 barium swallow study revealed small sliding hiatal hernia without gastroesophageal reflux. MEDICAL HISTORY: Human immunodeficiency virus (HIV) infection, chronic obstructive pulmonary disease, chronic back pain, esophageal dysphagia with esophageal strictures, esophageal ulcers, and eosinophilic esophagitis, poor dental hygiene, anemia, chronic renal failure, xerostomia, bipolar disorder (recent admission for suicidal ideations), pancytopenia, hypothyroidism, history of alcohol abuse, hyperlipidemia, hypothyroidism, and tobacco use. STUDY FINDINGS: Patient participated in a Modified Barium Swallow (MBS) study on 03/17/2018. Dr. Bellamy was the radiologist present for this evaluation. This study was recorded in the lateral view and images were sent to PACs for storage. The following consistencies were presented to this patient for analysis of oropharyngeal swallow function: thin liquids, pudding, and a regular textured, Deanna Doone cookie. Results of the MBS are as follows: PENETRATION / ASPIRATION SCALE (GONZALEZ): 1 = does not enter airway 2 = enters airway/above vocal folds/ejected 3 = enters airway/above vocal folds/not ejected 4 = enters airway/contacts vocal folds/ejected 5 = enters airway/contacts vocal folds/not ejected 6 = enters airway/below vocal folds/ejected 7 = enters airway/below vocal folds/not ejected despite effort 8 = enters airway/below vocal folds/no effort PENETRATION / ASPIRATION SCALE (SCORE): Thin liquid - 5 mL tsp.: 1 Thin liquids via cup (single sip): 2 Thin liquids via cup (single sip): 2 Thin liquids via cup (sequential swallows): 3 Thin liquids via cup (chin tuck): 1 Thin liquids via cup (chin tuck): 1 Thin liquids via cup (chin tuck): 2* Pudding via spoon: 1 Regular textured cookie: 1 Thin liquids via cup (single sip): 2 Thin liquids via cup (chin tuck): 2* * denotes suboptimal execution of the chin tuck posture IMPRESSION: DIAGNOSIS: mild to moderate oropharyngeal dysphagia (R13.12) ORAL PHASE CHARACTERIZED BY: LABIAL SEAL: no labial escape TONGUE CONTROL DURING BOLUS MANIPULATION: posterior escape of less than half of bolus BOLUS PREPARATION / MASTICATION: slow prolonged chewing/mashing with complete recollection BOLUS TRANSPORT / LINGUAL MOTION: brisk tongue motion ORAL RESIDUE: trace residue lining oral structures PHARYNGEAL PHASE CHARACTERIZED BY: INITIATION OF PHARYNGEAL SWALLOW: bolus head in pyriforms at first hyoid excursion SOFT PALATE ELEVATION: no bolus between soft palate and pharyngeal wall LARYNGEAL ELEVATION: partial superior movement of thyroid cartilage/partial approximation of arytenoids cartilage to epiglottic petiole ANTERIOR HYOID EXCURSION: partial anterior movement EPIGLOTTIC MOVEMENT: complete epiglottic inversion LARYNGEAL VESTIBULE CLOSURE AT HEIGHT OF SWALLOW: incomplete laryngeal vestibule closure with narrow column of air/contrast in laryngeal vestibule PHARYNGEAL STRIPPING WAVE: pharyngeal stripping wave present / diminished PHARYNGOESOPHAGEAL SEGMENT OPENING: partial distension and partial duration; partial obstruction of flow TONGUE BASE RETRACTION: narrow column of contrast between tongue base and posterior pharyngeal wall PHARYNGEAL RESIDUE: collection of residue within or on pharyngeal structures ESOPHAGEAL PHASE CHARACTERIZED BY: ESOPHAGEAL BOLUS CLEARANCE IN THE UPRIGHT POSITION: complete clearance; esophageal coating EFFECTS OF TREATMENT STRATEGIES ATTEMPTED: Chin tuck posture = moderately effective Anterior lean = moderately effective Liquid chaser = moderately effective Reduced bolus size = moderately effective DIET TEXTURE RECOMMENDATIONS: Will recommend a regular-soft textured, thin liquid diet. COMPENSATORY STRATEGIES RECOMMENDED: chin tuck with slight anterior lean, reduced bolus volume, reduced rate of intake, liquid chaser at reasonable intervals, seated upright at 90 degrees during PO intake, remain upright for 30-60 minutes post meal (GERD precaution), medications with liquid chaser, INTERPRETATION OF RESULTS: The Patient presents with mild to moderate oropharyngeal dysphagia (R13.12) likely secondary to a combination of human immunodeficiency virus (HIV) infection, chronic obstructive pulmonary disease, presbyphagia, and general deconditioning, Oral phase primarily marked by mild mastication inefficiency; with notable improvement in lingual control with reduction in premature bolus loss consistency and quantity, Pharyngeal phase marked by continued swallow onset timing impairments contributing to prandial penetration of thin liquids with somewhat consistent laryngeal vestibule pressure generated to expel penetrated materials (with exception of sequential trials); inconsistent pharyngeal motility, particularly during deglutition of solid textures, though able to achieve appropriate clearance with post prandial liquid wash. Noted calcification of the anterior vocal fold. All deficits ameliorated with execution of the chin tuck posture, slight anterior lean, and bolus volume adjustments; though execution was less than consistent. RECOMMENDATIONS: Continued stabilization of the swallow function, though the above detailed inconsistencies in execution of recommended compensatory strategies coupled with the recent reductions in attention due to iatrogenic factors are complicating factors for PO diet texture tolerance. Would consider additional skilled speech-language intervention at the outpatient level targeting continued diet texture management; training and implementation of recommended compensatory strategies; assessment and monitoring of the Patients cognitive communication profile as it relates to safety during deglutition with adjustments in the treatment plan as dictated. Would not anticipate a prolonged intervention cycle. ADDITIONAL COMMENTS/RECOMMENDATIONS: Results and recommendations were discussed with the Patient immediately following MBS completion, with the Patient verbalizing understanding and agreement with all recommendations and education provided. IMAGE COUNT: [id number] G-CODES: SWALLOWING [id number] Current Status: CJ SWALLOWING [id number] Goal Status: CI SWALLOWING [id number] Discharge Status: SEVERINO Newberry M.A., CCC-PRINT MANAGER [facility] Speech-Language Pathology Department [email or web address]
--- OUTSIDE RECORDS SUMMARY | 2018-06-18 17:33 | XMS RPT_ITS ---
:1960 Author Organization OHIP Support Name Relationship Address Phone LIS GUTHRIE Unavailable Unavailable + [place] [address] D Unavailable Unavailable Unavailable FEI, DON(POA) Unavailable [address] + [place] [address] CLEVELANDSAMEER GONZALEZA Unavailable Unavailable + [place] [address] D Unavailable Unavailable Unavailable FEI, DON(POA) Unavailable [address] + [place] [address] CLEVELAND, LIS Unavailable Unavailable + [place] [address] D Unavailable Unavailable Unavailable FEI, DON(POA) Unavailable [address] + [place] [address] CLEVELAND LIS Unavailable Unavailable + [place] [address] D Unavailable Unavailable Unavailable FEI, DON(POA) Unavailable [address] + [place] [address] CLEVELAND, LIS Unavailable Unavailable + [place] [address] D Unavailable Unavailable Unavailable FEI, DON(POA) Unavailable [address] + [place] [address] CLEVELAND, LIS Unavailable Unavailable + [place] [address] D Unavailable Unavailable Unavailable FEI, DON(POA) Unavailable [address] + [place] [address] CLEVELAND, LIS Unavailable Unavailable + [place] [address] D Unavailable Unavailable Unavailable FEI, DON(POA) Unavailable [address] + [place] [address] CLEVELAND, LIS Unavailable Unavailable + [place] [address] D Unavailable Unavailable Unavailable FEI, DON(POA) Unavailable [address] + [place] [address] CLEVELAND, LIS Unavailable Unavailable + [place] [address] D Unavailable Unavailable Unavailable FEI, DON(POA) Unavailable [address] + [place] [address] CLEVELAND, LIS Unavailable . + [place] [address] D Unavailable Unavailable Unavailable FEI, DON(POA) Unavailable [address] + [place] [address] CLEVELAND, LIS Unavailable . + [place] [address] D Unavailable Unavailable Unavailable FEI, DON(POA) Unavailable [address] + [place] [address] C[place], LIS Unavailable . + [place] [address] D Unavailable Unavailable Unavailable FEI DON(POA) Unavailable [address] [facility] [address] + [place] [address] CLEVELAND, LIS Unavailable . + [place] [address] D Unavailable Unavailable Unavailable FEI DON(POA) Unavailable [address] [facility] [address] + [place] [address] Care Team Providers Name Role Phone JERONIMO ROTH Attending Unavailable TAZ JOHNSON Referring Unavailable SALENA VILLEGAS Attending Unavailable NYDIA CARO (NS) Attending Unavailable SALENA VILLEGAS Referring Unavailable Taz Johnson Attending Unavailable Taz Johnson Referring Unavailable Taz Johnson Primary Care Unavailable Aleja Espitia Attending Unavailable Alden Arellano Primary Care Unavailable Omkar, Haileeour Referring Unavailable Aleja Espitia Attending Unavailable Aleja Espitia Referring Unavailable Alden Arellano Primary Care Unavailable Omkar, Mansour Consulting Unavailable Jose E Salas Attending Unavailable MaritzaJose E Referring Unavailable Ranney, Christopher Primary Care Unavailable Ranney, Christopher Attending Unavailable Ranney, Christopher Primary Care Unavailable Ranney, Christopher Referring Unavailable Ranney, Christopher Attending Unavailable Ranney, Christopher Referring Unavailable Ranney, Christopher Primary Care Unavailable Ranney, Christopher Attending Unavailable Ranney, Christopher Referring Unavailable Ranney, Christopher Primary Care Unavailable Ranney, Christopher Attending Unavailable Ranney, Christopher Primary Care Unavailable Basali, Ayman Attending Unavailable Basali, Ayman Referring Unavailable Ranney, Christopher Primary Care Unavailable , JEFFERY Attending Unavailable JEFFERY SOARES Referring Unavailable Ranney, Christopher Primary Care Unavailable Basali, Ayman Attending Unavailable Basali, Ayman Referring Unavailable Ranney, Christopher Primary Care Unavailable Basali, Ayman Attending Unavailable Basali, Ayman Referring Unavailable Ranney, Christopher Primary Care Unavailable Maritza, Jose E Attending Unavailable Maritza, Jose E Referring Unavailable [facility], [facility] Unavailable PROBLEMS PROBLEMS DATE TYPE CONDITION / CODE ATTENDING STATUS SOURCE 03/03/2018 Unknown B20 - Human MaritzaJose E coleman Active [place] immunodeficiency [facility] virus [HIV] disease / Hospital B20(ICD-10) Repository 01/07/2018 Unknown M54.9 - Dorsalgia, Basali, Ayman Active [place] unspecified / [facility] M54.9(ICD-10) Hospital Repository 01/07/2018 Unknown M54.2 - Cervicalgia / Basali, Ayman Active [place] M54.2(ICD-10) [facility] Repository 11/10/2017 Unknown R49.0 - Dysphonia / Ranney, Active [place] R49.0(ICD-10) [facility] Repository PROCEDURES PROCEDURES No Procedure Records FoundRESULTS RESULTS MODIFIED BARIUM Observed: 03/17/2018 Status: F Source: [place] SWALLOW STUDY 7:27 PM [facility] REPOSITORY [facility] Speech Pathology [address] [place] [address] Modified Barium Swallow Study MR#: [id number] Acct: [id number] Name: KATHYA RASHEED Rep #: [id number] : 1960 57 From: CHERI [place] M.A.Y-ARCHIVIST ECONOMIC HISTORY PRIMARY / SECONDARY DIAGNOSIS: dysphagia (R13.10) REFERRING PHYSICIAN: Dr. Taz Johnson MD CURRENT DIET: regular-soft textures, thin liquids DENTITION: dentures MENTAL STATUS: WNL RESPIRATORY STATUS: O2 via room air PREVIOUS MODIFIED BARIUM SWALLOW STUDY: 04/24/2017 MBS revealed moderate oropharyngeal dysphagia (R13.12) with SILENT aspiration of thin liquids 12/04/2016 MBS revealed severe oropharyngeal dysphagia (R13.12) with SILENT aspiration of thin and nectar thickened liquids. 06/22/2017 MBS revealed mild oropharyngeal dysphagia (R13.12) with intermittent transient penetration of thin liquids 08/10/2017 MBS revealed moderate oropharyngeal dysphagia (R13.12) with grade III SILENT aspiration of thin liquids. REASON FOR REFERRAL: The Patient is a 57 year old male referred for a repeat modified barium swallow (MBS) study to objectively assess the Patients oropharyngeal swallow function under fluoroscopy, with recent history of eosinophilic esophagitis along with prior identification of SILENT aspiration of thin and nectar thickened liquids under fluoroscopy. PEG tube placed 12/09/2016; still in place. Patient advanced to thin liquids following most recent MBS without subjective complications or development of aspiration related pulmonary complications. Of note, the Patient reports recent adjustments to his medication regimen (Topiramate 125 x2 TID; replacing Primidone) with resulting reduction in attention / sustained attention and onset of fatigue (states that he cannot sit for long, as he will quickly fall asleep). ADDITIONAL OBJECTIVE ASSESSMENT RESULTS: 04/09/2017 barium swallow study revealed normal plain film x-ray examination (barium swallow) of the esophagus. 11/24/2016 barium swallow study revealed normal plain film x-ray examination (barium swallow) of the esophagus. 05/05/2016 barium swallow study revealed small sliding hiatal hernia without gastroesophageal reflux. MEDICAL HISTORY: Human immunodeficiency virus (HIV) infection, chronic obstructive pulmonary disease, chronic back pain, esophageal dysphagia with esophageal strictures, esophageal ulcers, and eosinophilic esophagitis, poor dental hygiene, anemia, chronic renal failure, xerostomia, bipolar disorder (recent admission for suicidal ideations), pancytopenia, hypothyroidism, history of alcohol abuse, hyperlipidemia, hypothyroidism, and tobacco use. STUDY FINDINGS: Patient participated in a Modified Barium Swallow (MBS) study on 03/17/2018. Dr. Bellamy was the radiologist present for this evaluation. This study was recorded in the lateral view and images were sent to PACs for storage. The following consistencies were presented to this patient for analysis of oropharyngeal swallow function: thin liquids, pudding, and a regular textured, Deanna Doone cookie. Results of the MBS are as follows: PENETRATION / ASPIRATION SCALE (GONZALEZ): 1 = does not enter airway 2 = enters airway/above vocal folds/ejected 3 = enters airway/above vocal folds/not ejected 4 = enters airway/contacts vocal folds/ejected 5 = enters airway/contacts vocal folds/not ejected 6 = enters airway/below vocal folds/ejected 7 = enters airway/below vocal folds/not ejected despite effort 8 = enters airway/below vocal folds/no effort PENETRATION / ASPIRATION SCALE (SCORE): Thin liquid - 5 mL tsp.: 1 Thin liquids via cup (single sip): 2 Thin liquids via cup (single sip): 2 Thin liquids via cup (sequential swallows): 3 Thin liquids via cup (chin tuck): 1 Thin liquids via cup (chin tuck): 1 Thin liquids via cup (chin tuck): 2* Pudding via spoon: 1 Regular textured cookie: 1 Thin liquids via cup (single sip): 2 Thin liquids via cup (chin tuck): 2* * denotes suboptimal execution of the chin tuck posture IMPRESSION: DIAGNOSIS: mild to moderate oropharyngeal dysphagia (R13.12) ORAL PHASE CHARACTERIZED BY: LABIAL SEAL: no labial escape TONGUE CONTROL DURING BOLUS MANIPULATION: posterior escape of less than half of bolus BOLUS PREPARATION / MASTICATION: slow prolonged chewing/mashing with complete recollection BOLUS TRANSPORT / LINGUAL MOTION: brisk tongue motion ORAL RESIDUE: trace residue lining oral structures PHARYNGEAL PHASE CHARACTERIZED BY: INITIATION OF PHARYNGEAL SWALLOW: bolus head in pyriforms at first hyoid excursion SOFT PALATE ELEVATION: no bolus between soft palate and pharyngeal wall LARYNGEAL ELEVATION: partial superior movement of thyroid cartilage/partial approximation of arytenoids cartilage to epiglottic petiole ANTERIOR HYOID EXCURSION: partial anterior movement EPIGLOTTIC MOVEMENT: complete epiglottic inversion LARYNGEAL VESTIBULE CLOSURE AT HEIGHT OF SWALLOW: incomplete laryngeal vestibule closure with narrow column of air/contrast in laryngeal vestibule PHARYNGEAL STRIPPING WAVE: pharyngeal stripping wave present / diminished PHARYNGOESOPHAGEAL SEGMENT OPENING: partial distension and partial duration; partial obstruction of flow TONGUE BASE RETRACTION: narrow column of contrast between tongue base and posterior pharyngeal wall PHARYNGEAL RESIDUE: collection of residue within or on pharyngeal structures ESOPHAGEAL PHASE CHARACTERIZED BY: ESOPHAGEAL BOLUS CLEARANCE IN THE UPRIGHT POSITION: complete clearance; esophageal coating EFFECTS OF TREATMENT STRATEGIES ATTEMPTED: Chin tuck posture = moderately effective Anterior lean = moderately effective Liquid chaser = moderately effective Reduced bolus size = moderately effective DIET TEXTURE RECOMMENDATIONS: Will recommend a regular-soft textured, thin liquid diet. COMPENSATORY STRATEGIES RECOMMENDED: chin tuck with slight anterior lean, reduced bolus volume, reduced rate of intake, liquid chaser at reasonable intervals, seated upright at 90 degrees during PO intake, remain upright for 30-60 minutes post meal (GERD precaution), medications with liquid chaser, INTERPRETATION OF RESULTS: The Patient presents with mild to moderate oropharyngeal dysphagia (R13.12) likely secondary to a combination of human immunodeficiency virus (HIV) infection, chronic obstructive pulmonary disease, presbyphagia, and general deconditioning, Oral phase primarily marked by mild mastication inefficiency; with notable improvement in lingual control with reduction in premature bolus loss consistency and quantity, Pharyngeal phase marked by continued swallow onset timing impairments contributing to prandial penetration of thin liquids with somewhat consistent laryngeal vestibule pressure generated to expel penetrated materials (with exception of sequential trials); inconsistent pharyngeal motility, particularly during deglutition of solid textures, though able to achieve appropriate clearance with post prandial liquid wash. Noted calcification of the anterior vocal fold. All deficits ameliorated with execution of the chin tuck posture, slight anterior lean, and bolus volume adjustments; though execution was less than consistent. RECOMMENDATIONS: Continued stabilization of the swallow function, though the above detailed inconsistencies in execution of recommended compensatory strategies coupled with the recent reductions in attention due to iatrogenic factors are complicating factors for PO diet texture tolerance. Would consider additional skilled speech-language intervention at the outpatient level targeting continued diet texture management; training and implementation of recommended compensatory strategies; assessment and monitoring of the Patients cognitive communication profile as it relates to safety during deglutition with adjustments in the treatment plan as dictated. Would not anticipate a prolonged intervention cycle. ADDITIONAL COMMENTS/RECOMMENDATIONS: Results and recommendations were discussed with the Patient immediately following MBS completion, with the Patient verbalizing understanding and agreement with all recommendations and education provided. IMAGE COUNT: 1508 G-CODES: SWALLOWING G8996 Current Status: CJ SWALLOWING G8997 Goal Status: CI SWALLOWING G8998 Discharge Status: SEVERINO Newberry M.A., [facility]-ARCHIVIST ECONOMIC HISTORY [facility] Speech-Language Pathology Department [email or web address] 03/17/181926 <Electronically signed by Fabrice Newberry M.A., [facility]-ARCHIVIST ECONOMIC HISTORY> Date Fabrice Newberry M.A., [facility]-ARCHIVIST ECONOMIC HISTORY Co-Signature Required for all Medicare patients Date/Time Co-Signature CC: SWALLOWING FUNCTION Observed: 03/17/2018 Status: F Source: [place] W/VIDEO 12:21 PM [facility] REPOSITORY [facility] Imaging Services [address] [place] [address] Swallowing Function w/Video MR#: [id number] Acct: [id number] Name: RASHEEDKATHYA VALERA Rep #: [id number] : 1960 M 57 From: Sumanth Bellamy MD PCP: Taz Johnson MD Status: REG CLI Study: Swallowing Function w/Video Date of Exam: 03/17/18 Exam# [id number] Ordering Dr: Tim Johnson MD STUDY: SWALLOWING STUDY REASON FOR EXAM: Male, 57 years old. Dysphagia. TECHNIQUE: The examination was performed with Speech Pathology in attendance. Under fluoroscopic observation, the patient ingested thin barium, thick barium, barium pudding, and barium coated cracker. FLUOROSCOPY TIME: 1:48 minutes/seconds. 1508 fluoroscopic images were obtained. RADIOLOGIST INVOLVEMENT: Radiologist was present and providing direct supervision. COMPARISON: Comparison is made with prior study August 10, 2017. FINDINGS: The following was observed during swallowing of the various mixtures of barium: Thin Barium: Transient penetration with ingestion of thin liquids. Thick Barium: There was no evidence of aspiration or laryngeal penetration. Barium Pudding: There was no evidence of aspiration or laryngeal penetration. Barium Coated Cracker: There was no evidence of aspiration or laryngeal penetration. RAD/Swallowing Function w/Video IMPRESSION: Transient penetration with ingestion of thin liquids. The swallow study findings were discussed with the patient by the speech pathologist at the conclusion of the examination. Please see speech pathology report for more information and recommendations. Electronically Signed: Sumanth Bellamy MD at 14:29 EST Tel [phone], Service support , CC: Taz Johnson MD Transfer Engineer: Signed CBC W/DIFF, AUTOMATED Collected: 03/03/2018 Status: F Source: [place] 8:19 AM [facility] REPOSITORY TYPE CODE TESTS RESULT OUT OF RANGE REFERENCE UNITS LAB L100.1000 4.4-11.0 K/mm3 Normal WBC 8.1 LAB L100.1200 4.6-6.2 M/mm3 Low RBC 4.07 LAB L100.1300 13.0-16.5 g/dl Normal HGB 14.6 LAB L100.1400 40-54 % Normal HCT 42.6 LAB L100.1500 80-94 fL High MCV 104.7 LAB L100.1600 27.0-32.0 pg High MCH 35.9 LAB L100.1700 32-36 g/gl Normal MCHC 34.3 LAB L100.1810 11.6-14.6 % Normal RDW CV 13.9 LAB L100.1820 35.1-43.9 fl High RDW SD 52.9 LAB L100.1900 150-450 K/mm3 Normal PLT 190 LAB L100.2000 6.2-12.0 fl Normal MPV 11.0 LAB L100.2100 47-70 % Normal NEUT% 59.4 LAB L100.2200 19-41 % Normal LY% 27.3 LAB L100.2300 0-10 % Normal MONO% 8.7 LAB L100.2400 0-5 % Normal EO% 3.9 LAB L100.2500 0-1 % Normal BASO% 0.5 LAB L100.2550 0.0-0.9 % Normal IM GRAN % 0.200 Result Comment: IG% - Immature Granulocytes (promyelocytes, myelocytes and metamyelocytes) > 1% indicates that a LEFT SHIFT is Present. LAB L100.2620 2.0-7.7 X10 3/uL Normal Absolute Neut 4.8 LAB L100.2720 0.83-4.51 X10 3/ul Normal Absolute Lymph 2.22 Performed By: #### L100.0100 #### [facility] Laboratory [address] [place], [address] COMPREHENSIVE METABOLIC Collected: 03/03/2018 Status: F Source: [facility] 8:19 AM [facility] REPOSITORY TYPE CODE TESTS RESULT OUT OF RANGE REFERENCE UNITS LAB L501.0100 74-106 mg/dL Normal GLU 74 Result Comment: Please note revised GLUCOSE reference range effective 2017. LAB L501.1000 7-18 mg/dL Normal BUN 16 LAB L501.1100 0.70-1.30 mg/dL Normal CREAT,SERUM 1.21 Result Comment: The validity of the calculated GFR AND GFRAA in patients over 70 years has not been determined. Clinical correlation is essential. LAB L501.1110 >60 mL/min Normal EST GFR 65 Result Comment: Non- GFR Calc LAB L501.1115 >60 mL/min Normal EST GFR - AA 79 Result Comment: GFR Calc LAB L501.1300 10-20 RATIO Normal BUN/CRE 13.2 LAB L501.1500 6.4-8.2 g/dL T Normal PROT 7.1 LAB L501.1800 3.2-5.0 g/dL Normal ALB 3.2 LAB L501.1950 2.2-4.2 g/dL Normal GLOB 3.9 LAB L501.2000 0.9-2.4 RATIO Low A/G 0.8 LAB L501.2200 8.5-10.1 mg/dL CA Normal 9.3 LAB L501.4100 15-37 U/L Normal AST 22 LAB L501.4305 45-117 U/L Normal ALK P 76 LAB L501.4405 16-61 U/L Normal ALT 20 LAB L501.4600 0.20-1.00 mg/dL T Normal BILI 0.40 LAB L501.5300 136-145 mmol/L NA Normal 140 LAB L501.5600 3.5-5.1 mmol/L K Normal 3.8 LAB L501.5900 98-107 mmol/L CL Normal 107 LAB L501.6100 21.0-32.0 mmol/L Normal CO2 25.0 LAB L501.6200 5-15 Normal GAP 8 Performed By: #### L500.4050, L500.4100 #### [facility] Laboratory [address] [place], [place], [address] LIPID PROFILE Collected: 03/03/2018 Status: F Source: [place] 8:19 AM [facility] REPOSITORY TYPE CODE TESTS RESULT OUT OF RANGE REFERENCE UNITS LAB L501.4900 200 mg/dL High CHOL 232 Result Comment: <200 mg/dL Desirable 200-240 mg/dL Borderline >240 mg/dL High Risk LAB L501.5000 mg/dL High TRIG 271 Result Comment: The drugs N-Acetylcysteine and Metamizole may falsely depress this assay. Serum Triglycerides Reference Interval Normal <150 mg/dL Borderline high 150 - 199 mg/dL High 200 - 499 mg/dL Very High > or = 500 mg/dL LAB L501.6400 mg/dL Low HDL 27 Result Comment: The drugs N-Acetylcysteine and Metamizole may falsely depress this assay. Reference Range HDL <40 mg/dL Low HDL Cholesterol HDL >or= 60 mg/dL High HDL Cholesterol LAB L501.6500 0-130 mg/dL High LDL 151 LAB L501.6600 5-40 mg/dL High VLDL 54 Performed By: #### L500.4050, L500.4100 #### [facility] Laboratory [address] [place], [place], [id number] CD4, T LYMPH HELPER Collected: 03/03/2018 Status: F Source: [place] COUNT 8:19 AM [facility] REPOSITORY TYPE CODE TESTS RESULT OUT OF REFERENCE UNITS RANGE LAB L3890.0800 3.4-10.8 x10E3/uL WBC Normal Count 9.0 LAB L3890.0900 4.14-5.80 x10E6/uL Low RBC Count 4.00 LAB L3890.1000 13.0-17.7 g/dL Normal Hemoglobin 14.1 LAB L3890.1100 37.5-51.0 % Normal Hematocrit 41.2 LAB L3890.1200 79-97 fL MCV High 103 LAB L3890.1300 26.6-33.0 pg MCH High 35.3 LAB L3890.1400 31.5-35.7 g/dL MCHC Normal 34.2 LAB L3890.1450 12.3-15.4 % RDW Normal 14.4 LAB L3890.1500 150-379 x10E3/uL Normal Platelets 202 LAB L3890.1600 Not Estab. % 59 Normal Neutrophils LAB L3890.1700 Not Estab. % Lymphs 29 Normal LAB L3890.1800 Not Estab. % 8 Normal Monocytes LAB L3890.1900 Not Estab. % 4 Normal Eosinophils LAB L3890.2000 Not Estab. % 0 Normal Basophils LAB L3890.2100 1.4-7.0 x10E3/uL Neutr Normal Absolute 5.3 LAB L3890.2200 0.7-3.1 x10E3/uL Lymphs Normal Absolute 2.6 LAB L3890.2300 0.1-0.9 x10E3/uL Monos Normal Absolute 0.8 LAB L3890.2400 0.0-0.4 x10E3/uL Eos Normal Absolute 0.3 LAB L3890.2500 0.0-0.2 x10E3/uL Basos 0 Normal Absolute LAB L3890.2505 . Immature Normal CellS Test not performed LAB L3890.2510 Not Estab. % Immature 0 Normal Grans LAB L3890.2515 0.0-0.1 x10E3/uL Imm 0 Normal Grans Abs Result Comment: Performed at: [facility] Lab[address] [id number] Packaging Design Engineer: Nathan Glass PhD, Phone: [phone] LAB L3890.1050 . Normal Test not NRBC Count performed LAB L3890.2525 . Normal Test not HEME COMMENT performed LAB L3890.2530 359-1519 /uL Normal 1076 ABS CD4 HELPER LAB L3890.2575 30.8-58. % Normal 5 % 41.4 CD4 POS.LYMPH Performed By: #### L3890.0200 #### [facility] (refer to report for specific site) refer to report for address and phone number HIV VIRAL LOAD Collected: 03/03/2018 Status: F Source: [place] QUANT 8:19 AM [facility] REPOSITORY TYPE CODE TESTS RESULT OUT OF RANGE REFERENCE UNITS LAB L3890.4100 . copies/mL Normal HIV-1 60 RNA,QUANT Result Comment: The reportable range for this assay is 20 to 10,000,000 copies HIV-1 RNA/mL. LAB L3890.4200 . Normal log10 HIV-1 1.778 RNA Result Comment: Result Units: qbu77ngpg/mL Performed at: - [facility] [id number] Packaging Design Engineer: Yamilet Chan MD, Phone: [phone] Performed By: #### L3890.4000 #### [facility] (refer to report for specific site) refer to report for address and phone number PROGRESS Observed: 02/22/2018 Status: COMPLETED Source: [place] 1:13 PM [facility] REPOSITORY HNO ID: [id number] Author: Nydia Melgoza (Mily) Gordo Service: (none) Author Type: Nurse Specialist Type: Progress Notes Filed: 02/23/2018 2:56 PM Note Text: February 22, 2018 Salena Villegas MD [address] [facility] [address] Taz Johnson MD [address] [facility] [address] Johnson: It was a pleasure seeing Mr. Rasheed in follow up today in clinic regarding his tremors. As you very well know, Mr. Rasheed is a 57 year old year old male diagnosed with Essential Tremor. Patient seen alone. He last saw Dr. Villegas on 11-24-17. The plan on that date was: Will increase primidone slowly to 150 mg TID. If not effective or does not tolerate consider addition of Topamax. He spoke with the doctor who manages his HIV and he said it was OK to take the Mysoline with his HIV meds. At present he is taking Primidone 50 mg, 3 tablets at [id number]. The primidone has not helped his tremor at all. He would like to again try the Propranolol again. However, it was stopped for low BP and he thinks it was stopped due to lowering one of his blood cell counts and he was weak which coincided with this. Denies sleepiness, imbalance, memory loss or confusion. Subjective: The patient currently takes the following medications: Current Outpatient Prescriptions: primidone (MYSOLINE) 50 mg tablet Take 3 tablets at [id number] DESCOVY 200-25 mg tab(s) 1 at bedtime HYDROcodone-acetaminophen (NORCO) 5-325 mg per tablet Take 1 tablet by mouth twice daily. ritonavir (NORVIR) 100 mg capsule Take 100 mg by mouth once daily. VITAMIN D-3 2,000 unit cap Take 1 capsule by mouth once daily. CULTURELLE 10 billion cell capsule Take 1 capsule by mouth once daily. PREZISTA 800 mg Take 1 tablet by mouth once daily. Cholecalciferol, Vitamin D3, (VITAMIN D) 1,000 unit cap Take 1,000 Units by mouth once daily. QUEtiapine (SEROQUEL) 100 mg tablet Take 100 mg by mouth once daily. finasteride (PROSCAR) 5 mg tablet Take 5 mg by mouth once daily. levothyroxine (SYNTHROID) 150 mcg tablet Take 150 mcg by mouth daily before breakfast. tamsulosin ER (FLOMAX) 0.4 mg cp24 Take 0.4 mg by mouth daily at bedtime. gabapentin (NEURONTIN) 600 mg tablet Take 600 mg by mouth three times daily. No current facility-administered medications for this visit. Objective: BP 113/70 Pulse 73 Resp 18 Ht 6' 0 (1.83m) Wt 151 lb (68.5kg) SpO2 95% BMI 20.47 kg/(m2). General: The patient is alert, active and oriented times three. Pleasant, cooperative, well nourished. Partial TFM: Handwriting is 2-4 (word handwriting was illegible) Spirals 1-3, left hand is worst and he is left handed No voice tremor. No head/facial tremors No rest tremors to hands or legs bilaterally Assessment and Plan: ASSESSMENT: 57 year old male with Essential Tremor. He failed trial of Propranolol due to side effects with reduced cell counts and low BP. At 150 mg BID of Primidone he has not noticed any improvement in his tremor. He does not wish to try higher doses of Primidone. PLAN: 1. First week: Pamelax 25 mg twice daily Primidone 50 mg, 2 tablets at 9E-3A-ncqvini 2. Second week: Topamax 25 mg 1+1/2 twice daily Primidone 50 mg one tablet three times daily 3. Third week: Topamax 25 mg, 2 tabs two times a day No Primidone 4. If needed, fourth week: Topamax, 25 mg, 2 tabs three times a day 5. If the tremor is well controlled at one of the doses, stop there Medical decision making was high complexity due to patient's, multiple symptoms, complex treatment regimen, multiple medications and risk of side effects Sincerely, Nydia Caro RN MILL SUPERVISOR.OBSTETRICS SPECIALIST CNOV Observed: 02/22/2018 Status: COMPLETED Source: ORIENT 12:40 PM [facility] REPOSITORY Office Visit (NEURMM) KATHYA RASHEED ([id number]) 1960 M Date Time Provider Department 02/22/18 12:40 PM NYDIA CARO (NS) NEUR During your visit today, we recorded the following information about you: Pulse Respiration Blood pressure Weight 73/minute 18/minute 113/70 68.5 kg Height 1.829 m Nydia Caro RN APRN.OBSTETRICS SPECIALIST 02/23/2018 2:56 PM Signed February 22, 2018 Salena Villegas MD [address] [facility] [address] Taz Johnson MD [address] [facility] [address] Johnson: It was a pleasure seeing Mr. Rasheed in follow up today in clinic regarding his tremors. As you very well know, Mr. Rasheed is a 57 year old year old male diagnosed with Essential Tremor. Patient seen alone. He last saw Dr. Villegas on 11-24-17. The plan on that date was: Will increase primidone slowly to 150 mg TID. If not effective or does not tolerate consider addition of Topamax. He spoke with the doctor who manages his HIV and he said it was OK to take the Mysoline with his HIV meds. At present he is taking Primidone 50 mg, 3 tablets at 2B-1B-togvkop. The primidone has not helped his tremor at all. He would like to again try the Propranolol again. However, it was stopped for low BP and he thinks it was stopped due to lowering one of his blood cell counts and he was weak which coincided with this. Denies sleepiness, imbalance, memory loss or confusion. Subjective: The patient currently takes the following medications: Current Outpatient Prescriptions: primidone (MYSOLINE) 50 mg tablet Take 3 tablets at 4H-8B-hbaruqw DESCOVY 200-25 mg tab(s) 1 at bedtime HYDROcodone-acetaminophen (NORCO) 5-325 mg per tablet Take 1 tablet by mouth twice daily. ritonavir (NORVIR) 100 mg capsule Take 100 mg by mouth once daily. VITAMIN D-3 2,000 unit cap Take 1 capsule by mouth once daily. CULTURELLE 10 billion cell capsule Take 1 capsule by mouth once daily. PREZISTA 800 mg Take 1 tablet by mouth once daily. Cholecalciferol, Vitamin D3, (VITAMIN D) 1,000 unit cap Take 1,000 Units by mouth once daily. QUEtiapine (SEROQUEL) 100 mg tablet Take 100 mg by mouth once daily. finasteride (PROSCAR) 5 mg tablet Take 5 mg by mouth once daily. levothyroxine (SYNTHROID) 150 mcg tablet Take 150 mcg by mouth daily before breakfast. tamsulosin ER (FLOMAX) 0.4 mg cp24 Take 0.4 mg by mouth daily at bedtime. gabapentin (NEURONTIN) 600 mg tablet Take 600 mg by mouth three times daily. No current facility-administered medications for this visit. Objective: BP 113/70 Pulse 73 Resp 18 Ht 6' 0 (1.83m) Wt 151 lb (68.5kg) SpO2 95% BMI 20.47 kg/(m2). General: The patient is alert, active and oriented times three. Pleasant, cooperative, well nourished. Partial TFM: Handwriting is 2-4 (word handwriting was illegible) Spirals 1-3, left hand is worst and he is left handed No voice tremor. No head/facial tremors No rest tremors to hands or legs bilaterally Assessment and Plan: ASSESSMENT: 57 year old male with Essential Tremor. He failed trial of Propranolol due to side effects with reduced cell counts and low BP. At 150 mg BID of Primidone he has not noticed any improvement in his tremor. He does not wish to try higher doses of Primidone. PLAN: 1. First week: Topamax 25 mg twice daily Primidone 50 mg, 2 tablets at 2O-6X-yksfgpv 2. Second week: Topamax 25 mg 1+1/2 twice daily Primidone 50 mg one tablet three times daily 3. Third week: Topamax 25 mg, 2 tabs two times a day No Primidone 4. If needed, fourth week: Topamax, 25 mg, 2 tabs three times a day 5. If the tremor is well controlled at one of the doses, stop there Medical decision making was high complexity due to patient's, multiple symptoms, complex treatment regimen, multiple medications and risk of side effects Sincerely, Nydia Caro RN MILL SUPERVISOR.OBSTETRICS SPECIALIST Nydia Caro RN MILL SUPERVISOR.OBSTETRICS SPECIALIST 02/22/2018 1:42 PM Signed 1. First week: Topamax 25 mg twice daily Primidone 50 mg, 2 tablets at 9V-3K-xnezlgg 2. Second week: Topamax 25 mg 1+1/2 twice daily Primidone 50 mg one tablet three times daily 3. Third week: Topamax 25 mg, 2 tabs two times a day No Primidone 4. If needed, fourth week: Topamax, 25 mg, 2 tabs three times a day 5. If the tremor is well controlled at one of the doses, stop there 6. Return to see Marjan in 2 months Referring Provider: SALENA VILLEGAS [[id number]] Allergies As of Date: 02/22/2018 Noted Allergy Reaction KEFLEX (CEPHALEXIN) 12/02/2007 7 - Swelling PENICILLINS 12/02/2007 Comments: unknown childhood Date Reviewed: 02/22/2018 Reviewed by: Margarita Maldonado MA - Fully Assessed Reason for Visit: Established Patient [175] Primary Visit Diagnosis:Essential tremor [G25.0] Order(s):DESCOVY 200-25 mg tab(s)1 at bedtimeDisp: Rfl: topiramate (TOPAMAX) 25 mg tabletIncrease as directed to 2 tablets at 7A-4P and bedtimeDisp: 180 tabletRfl: 5 Prescriptions as of 02/22/2018 Sig: DESCOVY 200 MG-25 MG TABLET 1 at bedtime HYDROCODONE 5 MG-ACETAMINOPHE* Take 1 tablet by mouth twice * RITONAVIR 100 MG CAPSULE Take 100 mg by mouth once ladan* VITAMIN D3 2,000 UNIT CAPSULE Take 1 capsule by mouth once * CULTURELLE 10 BILLION CELL CA* Take 1 capsule by mouth once * PREZISTA 800 MG TABLET Take 1 tablet by mouth once d* CHOLECALCIFEROL (VITAMIN D3) * Take 1,000 Units by mouth onc* QUETIAPINE 100 MG TABLET Take 100 mg by mouth once ladan* FINASTERIDE 5 MG TABLET Take 5 mg by mouth once daily. LEVOTHYROXINE 150 MCG TABLET Take 150 mcg by mouth daily b* TAMSULOSIN 0.4 MG CAPSULE Take 0.4 mg by mouth daily at* GABAPENTIN 600 MG TABLET Take 600 mg by mouth three ti* TOPIRAMATE 25 MG TABLET Increase as directed to 2 tab* Medication notes this encounter HYDROCODONE 5 MG-ACETAMINOPHEN 325 MG TABLET >> Margarita Maldonado MA 02/22/2018 1:02 PM >> MARGARITA MALDONADO MA Feb 22, 2018 1:02 PM Pt not taking Problem List As Of Date 02/22/2018 Noted Resolved Bipolar disorder, unspecified (HCC) [F31.9] INVALID FOR* Priority: D More... Mixed hyperlipidemia [E78.2] INVALID FOR* Priority: D Cholelithiasis [K80.20] INVALID FOR* More... Varicocele [I86.1] INVALID FOR* Testicular pain [N50.819] INVALID FOR* Priority: A More... More... Stricture and Stenosis of Esophagus [K22.2] Alcohol Abuse, in Remission INVALID FOR* More... Unspecified Orchitis and Epididymitis [N45.3] INVALID FOR* Lumbar radicular syndrome [M54.16] INVALID FOR* More... Tremor [R25.1] INVALID FOR* Weight loss [R63.4] INVALID FOR* Priority: C Acquired hypothyroidism [E03.9] INVALID FOR* Priority: D Dehydration [E86.0] INVALID FOR* Loss of weight [R63.4] INVALID FOR* Priority: C Esophageal mass [K22.9] INVALID FOR* Priority: A More... Odynophagia [R13.10] INVALID FOR* Priority: B More... Malnutrition of moderate degree (HCC) [E44.0] INVALID FOR* Pancytopenia (HCC) [D61.818] INVALID FOR* Drug-induced tremor [G25.1] INVALID FOR* Essential tremor [G25.0] INVALID FOR* Other instructions from your clinician: 1. First week: Topamax 25 mg twice daily Primidone 50 mg, 2 tablets at 4I-9M-nofcsdx 2. Second week: Topamax 25 mg 1+1/2 twice daily Primidone 50 mg one tablet three times daily 3. Third week: Topamax 25 mg, 2 tabs two times a day No Primidone 4. If needed, fourth week: Topamax, 25 mg, 2 tabs three times a day 5. If the tremor is well controlled at one of the doses, stop there 6. Return to see Marjan in 2 months Prescriptions ordered this encounter Disp Refills Start End PRIMIDONE 50 MG TABLET 02/22/2018 02/22/2018 Class: Med Update Sig: Take 3 tablets at 9K-3R-ijrlcju Disc: Course of therapy completed DESCOVY 200 MG-25 MG TABLET 02/22/2018 Class: Med Update Si at bedtime TOPIRAMATE 25 MG TABLET 180 * 5 02/22/2018 Sig: Increase as directed to 2 tablets at 7A-4P and bedtime Medications Discontinued During This Encounter primidone (MYSOLINE) 50 mg tablet 270 * 5 11/24/2017 02/22/2018 Sig: Take 2 tablets QAM, 2 tablets QPM, 3 tablets QHS x1 week. Then 3 tablets QAM, 2 tablets QPM, 3 tablets QHS x1 wek. Then take 3 tablets TID Disc: Dosage adjustment DESCOVY 200-25 mg tab(s) 06/03/2017 02/22/2018 Class: Historical Med Route: ORAL Sig: Take 1 tablet by mouth daily at bedtime. Disc: Reason for discontinue is not on file. primidone (MYSOLINE) 50 mg tablet 02/22/2018 02/22/2018 Class: Med Update Sig: Take 3 tablets at 4O-8Y-afhficr Disc: Course of therapy completed Letter Jose De Jesus Caro RN MILL SUPERVISOR.[facility] [address] [place] [address] February 23, 2018 Taz Johnson MD [address] [place] [id number] VIA Facsimile: [phone] Re: Kathya Rasheed : [address] Johnson, Thank you for the opportunity to participate in the care of your patient Kathya Rasheed, who I saw at [facility] on 02/22/2018. My Assessment and Plan are as follows: ASSESSMENT: 57 year old male with Essential Tremor. He failed trial of Propranolol due to side effects with reduced cell counts and low BP. At 150 mg BID of Primidone he has not noticed any improvement in his tremor. He does not wish to try higher doses of Primidone. PLAN: 1. First week: Topamax 25 mg twice daily Primidone 50 mg, 2 tablets at 2A-9W-xcarosx 2. Second week: Topamax 25 mg 1+1/2 twice daily Primidone 50 mg one tablet three times daily 3. Third week: Topamax 25 mg, 2 tabs two times a day No Primidone 4. If needed, fourth week: Topamax, 25 mg, 2 tabs three times a day 5. If the tremor is well controlled at one of the doses, stop there If you have any questions or need additional information, please feel free to contact me. Thanks again for your kind referral. Best regards, Nydia Caro RN APRN.OBSTETRICS SPECIALIST cc: No Recipients If you would like your next patient report to be electronic, please consider signing up for [facility]'s [email or web address] service. This is a complimentary service that enables you to view real-time information about the treatment your patients receive while at [facility]. To register online to use [employer], simply log onto [email or web address] and click the register button to begin. If you need assistance, please contact [employer] customer support at [phone] or [email or web address]. Encounter Status:Closed by NYDIA ZHOU on 02/23/18 PT D/C SUMMARY (1) Observed: 12/31/2017 Status: F Source: [place] 9:46 AM [facility] REPOSITORY [facility] [address] [place], [place] [address] Fax REHABILITATION SERVICES DISCHARGE SUMMARY MR#: [id number] Acct: [id number] Name: KATHYA RASHEED Rep #: [id number] : 1960 57 From: Tia Razo PT, Cert. MDT Referring Dr.: Issa Snow MD Status: REG RCR [facility] *IN NETWORK SELF PAY INSURANCE HP - PT D/C Summary It has been my pleasure to treat KATHYA RASHEED under orders from Issa Snow, for the diagnosis of BACK AND NECK PAIN for a total of 10 visit(s). Discharge Date: Please see the following information for a summary of their discharge status. - Subjective Subjective: PATIENT REPORTS HE DOESN'T HAVE THAT PINCH IN HIS HIP ANYMORE AND HE CAN WALK AROUND BETTER. HE STATES HE IS DOING GOOD AND HE IS NOW ABLE TO PRETTY MUCH DO EVERYTHING AT HOME THAT HE DOES HERE. HAVING SOME UPPER BACK PAIN AND GETTING AN INJECTION TOMORROW FOR IT. 1/10 LEFT HIP PAIN AT WORST NOW IF HE WALKS TOO MUCH. LIKES TO STILL USE HIS CANE FOR BALANCE. REPORTS HE IS ABLE TO WALK UP STEPS STEP OVER STEP NOW. - Pain LEFT GROIN/ILIAC CREST/BACK Pain Intensity (Out of 10): 0 Mid-back Pain Intensity (Out of 10): 1 - Overall Improvement % Improvement: 90 - Objective Objective/Function: ALL GOALS HAVE BEEN MET. HIS PAIN IS ALMOST GONE, HIS LLE STRENGHT IS IMPROVED AND HIS WALKING FUNCTION HAS IMPROVED. HE IS ALSO INDEP WITH A HEP. Active Correction of posture: WORSE. Other Observations: THIS PATIENT AMBULATES INDEP'LY INTO PT WITH A STRAIGHT CANE AND NO LOSS OF BALANCE. HE IS STILL UNABLE TO TRANSFER FROM SIT TO STAND WITHOUT UE ASSIST FROM OUR CHAIRS. HE STILL HAS POOR POSTURAL STRENGTH. Motor deficit: RIGHT LE 5/5. LLE: 5/5 WITH MMT'ING NOW. Sensory deficit: NO. ROM deficit: STILL WITH TIGHT HIP FLEXORS, HS'S AND GASTROC SOLEUS COMPLEX'S. Dural Signs: NEGATIVE ALLISON LE'S. Lumbar mvmt loss: flex - MIN. ext - NT. R SG - SIMEON. L SG - SIMEON. Core strength: POOR. Palpation: THERE IS NO TENDERNESS OF LEFT LUMBOSACRAL AREA AND AROUND ILIAC CREST INTO GREATER TROCH. REGIONS NOW. LUMBAR OSWESTRY HAS NOT CHANGED SIGNIFICANTLY BUT PATIENT REPORTS THE QUESTIONS DON'T ALWAYS HAVE AN ANSWER THAT FITS. - Goals Goal 1:: DECREASE C/O BACK AND LEFT HIP PAIN Goal Progress: Goal Met Goal 2:: IMPROVE PERSONAL CARE, LIFTING, WALKING, SITTING, STANDING, SOCIAL LIFE, TRAVEL AND HOMEMAKING FUNCTION. Goal Progress: Progressing Goal 3:: INSTRUCT IN PROPHYLAXIS Goal Progress: Goal Met - Plan Plan: D/C TO HEP. PATIENT AGREEABLE. - D/C Information If there are questions or concerns regarding this patient's physical therapy, please feel free to call me at [phone]. Thank you for the referral of this patient. Sincerely, Tia Razo <Electronically signed by Tia Razo PT, CertIvania MDT> 12/31/17 0946 CC: Issa Snow MD; Taz Johnson MD LUCAS Signed INITAL EVALUATION (1) Observed: 12/02/2017 Status: F Source: [place] - PT 5:31 PM [facility] REPOSITORY [facility] [address] [place] [address]. [address] [place] [address] Fax REHABILITATION SERVICES INITIAL EVALUATION MR#: [id number] Acct: [id number] Name: KATHYA RASHEED Rep #: [id number] : 1960 57 From: Tia Razo PT, Cert. MDT Referring Dr.: Issa Snow MD Status: REG RCR Insurance: [facility] *IN NETWORK SELF PAY INSURANCE Patient's Visit Information KATHYA RASHEED is a 57 year old M referred to Physical Therapy by Issa Snow with a diagnosis of BACK AND NECK PAIN. Date of Evaluation: 12/02/17 Physical Therapist: Tia Razo - Visit Plan Frequency: 2-3x /Week Duration: 4-6 Weeks Plan: *NO LUMBAR EXTENSION* POSTURE CORRECTION/STRENGTHENING, INSTRUCTION IN APPROPRIATE BODY MECHANICS AND ACTIVITY MODIFICATIONS. DLS WITH NEUTRAL SPINE. ALLISON LE ROM, STRETCHING AND STRENGTHENING. *FOCUS ON WRITTEN HEP INSTRUCTION* - Subjective Subjective: Work/Leisure: UNEMPLOYEED. Disability: YES - BIPOLAR DISORDER. Present symptoms: ALLISON LOW BACK PAIN LEFT > RIGHT. LEFT HIP PAIN. Present since: YEARS AGO. Pain Scale: WORST 8/10, LEAST 1/10. Currently: /10. Commenced as a result of: ARTHRITIS. Symptoms at onset: BACK. Worse: SHOPPING AT [email or web address] YESTERDAY - CAUSED PINCHING IN LEFT HIP. BENDING, LIFTING, STANDING, WALKING, TWISTING, MOVING FAST. Better: RE[employer]ER. HAS BEEN SLEEPING IN [employer] FOR 35 YEARS BECAUSE OF BACK. Disturbed sleep: NO. Previous history/Previous treatment: NO BACK OR HIP PAIN EXCEPT VARICOSE SX LEFT HIP ABOUT 10 YEARS AGO. PAIN MGMT. LAST INJECTION WAS IN LEFT HIP ABOUT 10 DAYS AGO. LONG HISTORY OF RICO'S. DEC 2016 WAS IN HOSPITAL THEN WENT TO REHAB FOR RECONDITIONING AT THE SNF. CHIROPRACTIC ABOUT 20 YEARS AGO. Coughing/sneezing/straining: POSITIVE. Gait: USES THE CANE OUT OF HOME USUALLY FOR BALANCE BUT DOES NOT USE AD IN HOME. Difficulty initiating urinatin: NO. Accidents: NO. Unexplained weight loss: NO. Imaging: RECENT LUMBAR MRI: MRI/Spine Lumbar (Routine). 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 PMH: RECOVERING ACOHOLIC - 10 YEARS SOBER. G-TUBE FOR NUTRITION - HAS HAD IT FOR A YEAR. HIV POSITIVE. - Objective Sitting/Standing Posture: POOR. VERY SLOUCHED. FORWARD HEAD AND SHOULDERS. RIGHT ILIAC CREST HIGHER THAN LEFT. Lordosis: REDUCED. Active Correction of posture: WORSE. Other Observations: THIS PATIENT AMBULATES INDEP'LY INTO PT WITH A STRAIGHT CANE AND NO LOSS OF BALANCE. HE IS UNABLE TO TRANSFER FROM SIT TO STAND WITHOUT UE ASSIST. HE HAS POOR POSTURAL STRENGTH. Motor deficit: RIGHT LE 5/5. LLE: HIP 3+/5, KNEE EXT 4-/5, KNEE FLEX 4-/5, ANKLE 4/5. Sensory deficit: NO. ROM deficit: VERY TIGHT HIP FLEXORS, HS'S AND GASTROC SOLEUS COMPLEX'S. Dural Signs: NEGATIVE ALLISON LE'S. Lumbar mvmt loss: flex - MIN. ext - NT. R SG - SIMEON. L SG - SIMEON. Core strength: POOR. Palpation: TENDERNESS OF LEFT LUMBOSACRAL AREA AND AROUND ILIAC CREST INTO GREATER TROCH. - Goals Goal 1:: DECREASE C/O BACK AND LEFT HIP PAIN Goal Time Frame: 4-6 Weeks Goal 2:: IMPROVE PERSONAL CARE, LIFTING, WALKING, SITTING, STANDING, SOCIAL LIFE, TRAVEL AND HOMEMAKING FUNCTION. Goal Time Frame: 4-6 Weeks Goal 3:: INSTRUCT IN PROPHYLAXIS Goal Time Frame: 4-6 Weeks - Rehabilitation Potential Rehabilitation Potential: Fair - Anticipated Interventions Patient/Client Instruction: Educate patient on: Condition, Plan of Care, Risk Factors, Benefits of Fitness Program For the Purpose of:: To improve self management Therapeutic Exercise to Include: Strength training, Balance training, Body mechanics, Postural training, Flexibilty training, Active ROM, Dynamic Lumbar Stabilization, Scapular Strength/Stabilization For the Purpose of:: To decrease pain, To increase ROM, To improve muscle performance and motor function, To increase tolerance to activity/condition/position, To improve ability of physical actions for home/community/work/leisure, To improve gait and locomotor functions Thank you for the opportunity to evaluate your patient. For Medicare and Medicare HMO plans, please review the plan of care and approve it. It will need to be FAXED BACK to us at [phone] for Medicare purposes. Please let me know if there are questions or concerns regarding this plan of care. Physician Signature: Date: <Electronically signed by Tia Razo PT, Cert. MDT> 12/02/17 1731 CC: Issa Snow MD; Taz Johnson MD LUCAS Signed For Medicare only, by signing this I certify the plan of care. Physicians Signature Date PROGRESS Observed: 11/24/2017 Status: COMPLETED Source: [place] 8:46 AM [facility] [place] REPOSITORY O ID: [id number] Author: Salena Villegas Service: (none) Author Type: Physician Type: Progress Notes Filed: 11/24/2017 9:37 AM Note Text: Previous records (physician notes, laboratory reports, and radiology reports) and imaging studies were reviewed and summarized as below. My recommendations will be communicated back to the patient's primary care physician and/or consulting physician(s) by way of shared medical record or letter via US mail. Thank you for allowing me to contribute to the care of your patient. REFERRING PHYSICIAN: SELF PCP: [address] / [place] [address] Accompanied by: Self CC: tremor HxCC: 57 year old LHW male with history significant for alcoholism, HIV, bipolar disorder, who presents for evaluation of tremors for a few years. Transitioning care from Dr. Roth due to distance. 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 He was recommended to work with his PCP and psychiatrist on stopping lithium and Reglan. He stopped lithium right after appointment with Dr. Roth in May. Has not started anything in its place. Off metoclopramide since around June or July. Used to get bad large amplitude twitching but this is gone. Continues to have action tremors with both hands. Good day today. Writing- the more he writes the shakier it gets. Has to steady with the other hand. Holds spoon with his fist like a toddler. Ok slicing food. These tremors are a little better. Good days and bad days. 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 Has to ask neighbor to write out checks. 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 Got an injection and feeling better. Was treated with [place] but doesn't want to take controlled substance since alcoholic. Sees Dr. Snow. Stopped drinking 10 years ago. Taking primidone 100 mg TID. Cannot say it gives him side effects since on multiple ones that are sedating. Balance is ok. BP runs low. Careful standing up. Uses cane on uneven ground. Uses it mainly because of the back. PMH: PAST MEDICAL HISTORY Diagnosis Date - Alcohol abuse, in remission - Anxiety - Benign essential tremor - Bipolar affective disorder (HCC) - Chronic pain - Depression - Emphysema lung (HCC) - Esophagitis - Hyperlipidemia - Hypothyroidism - Lumbago - Malnutrition (HCC) - Obstructive sleep apnea - Other testicular dysfunction - Stricture and stenosis of esophagus - Tobacco abuse - Vitamin D deficiency - Weight loss PSH: PAST SURGICAL HISTORY Procedure Laterality Date - COLONOSCOP W/ OR W/O BRSH SPEC 12/18/2015 repeat 10 yrs - EGD N/A 04/16/2016 [facility]-removal foreign body - EGD - FB REMOVAL 03/21/2016 - EGD W/O OR W/BRUSH/WASH 09/03/2005 EGD - EGD W/O OR W/BRUSH/WASH 12/18/2015 EGD - INGUINAL HERNIA REPAIR HX 2-2009 left - ORCHIECTOMY SIMPLE 10/2009 left -- for pain- chronic inflammation - PAST SURGICAL HISTORY OF Right Right forearm laceration repair - PAST SURGICAL HISTORY OF removal of all teeth - TONSILLECTOMY HX CURRENT MEDS: Current Outpatient Prescriptions: HYDROcodone-acetaminophen (NORCO) 5-325 mg per tablet Take 1 tablet by mouth twice daily. ritonavir (NORVIR) 100 mg capsule Take 100 mg by mouth once daily. primidone (MYSOLINE) 50 mg tablet Take 2 tablets by mouth three times daily. DESCOVY 200-25 mg tab(s) Take 1 tablet by mouth daily at bedtime. VITAMIN D-3 2,000 unit cap Take 1 capsule by mouth once daily. CULTURELLE 10 billion cell capsule Take 1 capsule by mouth once daily. PREZISTA 800 mg Take 1 tablet by mouth once daily. Cholecalciferol, Vitamin D3, (VITAMIN D) 1,000 unit cap Take 1,000 Units by mouth once daily. QUEtiapine (SEROQUEL) 100 mg tablet Take 100 mg by mouth once daily. finasteride (PROSCAR) 5 mg tablet Take 5 mg by mouth once daily. levothyroxine (SYNTHROID) 150 mcg tablet Take 150 mcg by mouth daily before breakfast. tamsulosin ER (FLOMAX) 0.4 mg cp24 Take 0.4 mg by mouth daily at bedtime. gabapentin (NEURONTIN) 600 mg tablet Take 600 mg by mouth three times daily. No current facility-administered medications for this visit. ALLERGIES: ALLERGIES Allergen Reactions - Keflex [Cephalexin] Swelling - Penicillins unknown childhood FMH: FAMILY HISTORY Problem Relation Age of Onset - Heart Mother - other (tremor) Mother - Heart Father - other (tremor) Brother SOCIAL: Social History Marital status: Single Spouse name: Years of education: Number of children: Social History Main Topics Smoking status: Current Every Day Smoker Packs/day: 0.00 Years: 20.00 Types: Cigars Smokeless tobacco: Never Used Comment: 1 cigar a day Alcohol use: No Comment: 9 years sober Drug use: No REVIEW OF SYSTEMS (In addition to HPI): Per HPI PHYSICAL EXAM: BP 143/79 Pulse 70 Ht 182.9 cm (6') Wt 65.8 kg (145 lb) BMI 19.67 kg/m? GEN: Alert. NAD. Normal affect. Cooperative. HEENT: No icterus. Normal mucosa. NECK/BACK: Supple RESP: easy respirations CV: no edema EXT: No cyanosis. No erythema. SKIN: No rashes. No lesions. NEUROLOGICAL: MENTAL STATUS: Alert and oriented. Thought process and content unremarkable. Follows commands appropriately. Speech fluent. CN: II: PERRLA. III, IV, : EOMI. No ptosis present. V: Symmetric facial sensation to LT. VII: Face symmetric. VIII: Hearing symmetrically decreased. No nystagmus. IX, X: Symmetric palatal rise. XI: Symmetric shoulder shrug. XII: Tongue midline with symmetric movements. MOTOR: Atrophy intrinsic hand muscles RIGHT UE: LEFT UE Deltoid 5/5 Deltoid 5/5 Biceps 5/5 Biceps 5/5 WE 5/5 WE 5/5 RIGHT LE: LEFT LE: HF 5-/5 HF 5-/5 KE 5/5 KE 5/5 CEREBELLAR: Normal F-N-F. Normal H-S. No dysmetria. No nystagmus. GAIT: Stable primary gait. With cane. Mildly wide based MOVEMENT EXAM: Movement disorders examination: To quantify parkinsonism, Part III of the MDS-Unified Parkinson?s Disease Rating Scale was performed and detailed in the succeeding sections in this report. Please see the neurological health status section or the next paragraph for details. Each item is scored from 0 to 4. In general, a score of 0 means normal; 1 means mild; 2 means moderate; 3 means moderate to severe; 4 means severe. Motor UPDRS SPEECH OFF 1 FACIAL EXPRESSION OFF 0 REST TREMOR - CRANIAL OFF 0 REST TREMOR - HANDS RT OFF 0 REST TREMOR - HANDS LT OFF 0 REST TREMOR - FEET RT OFF 0 REST TREMOR - FEET LT OFF 0 ACTION TREMOR - RT OFF 0.5 ACTION TREMOR - LT OFF 1 RIGIDITY - UE - RT OFF 0 RIGIDITY - UE - LT OFF 0 FINGER TAPS - RT OFF 0 FINGER TAPS - LT OFF 0 HAND WIRER HELPER - RT OFF 0 HAND WIRER HELPER - LT OFF 0 PRONATE/SUPINATE - RT OFF 0 PRONATE/SUPINATE - LT OFF 0 Writing small and tremulous. Very tremulous spiral with left hand, mild with right ASSESSMENT: 57 year old male with history significant for alcoholism, HIV, bipolar disorder, with likely essential tremor. His tremors persist despite being off lithium and Reglan. Exam appears to be improved compared to at Dr. Roth's visit but still with tremors mainly affecting writing, worse on the left. BP runs low so propranolol would not be a good choice. Will increase primidone slowly to 150 mg TID. If not effective or does not tolerate consider addition of Topamax. Urged him to discuss interactions between primidone and his HIV medications with physician that manages his HIV meds. PLAN: ---> Increase primidone 50 mg AM PM bedtime Week 1 2 tablets 2 tablets 3 tablets Week 2 3 tablets 2 tablets 3 tablets Week 3 and on 3 tablets 3 tablets 3 tablets ---> Follow-up: 3 months with Marjan Villegas M.D. [facility] [place] Department [facility] cc: SELF Phone: N/A Fax: [phone] / [place] [address] CNOV Observed: 11/24/2017 Status: COMPLETED Source: ORIENT 7:40 AM [facility] REPOSITORY Office Visit (NREU10) KATHYA RASHEED ([id number]) 1960 M Date Time Provider Department 11/24/17 7:40 AM SALENA VILLEGAS NREU10 During your visit today, we recorded the following information about you: Pulse Blood pressure Weight Height 70/minute 143/79 65.8 kg 1.829 m Salena Villegas MD 11/24/2017 9:37 AM Signed Previous records (physician notes, laboratory reports, and radiology reports) and imaging studies were reviewed and summarized as below. My recommendations will be communicated back to the patient's primary care physician and/or consulting physician(s) by way of shared medical record or letter via US mail. Thank you for allowing me to contribute to the care of your patient. REFERRING PHYSICIAN: SELF PCP: [address] / [place] [address] Accompanied by: Self CC: tremor HxCC: 57 year old [facility] male with history significant for alcoholism, HIV, bipolar disorder, who presents for evaluation of tremors for a few years. Transitioning care from Dr. Roth due to distance. 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 He was recommended to work with his PCP and psychiatrist on stopping lithium and Reglan. He stopped lithium right after appointment with Dr. Roth in May. Has not started anything in its place. Off metoclopramide since around June or July. Used to get bad large amplitude twitching but this is gone. Continues to have action tremors with both hands. Good day today. Writing- the more he writes the shakier it gets. Has to steady with the other hand. Holds spoon with his fist like a toddler. Ok slicing food. These tremors are a little better. Good days and bad days. 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 Has to ask neighbor to write out checks. 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 Got an injection and feeling better. Was treated with [place] but doesn't want to take controlled substance since alcoholic. Sees Dr. Snow. Stopped drinking 10 years ago. Taking primidone 100 mg TID. Cannot say it gives him side effects since on multiple ones that are sedating. Balance is ok. BP runs low. Careful standing up. Uses cane on uneven ground. Uses it mainly because of the back. PMH: PAST MEDICAL HISTORY Diagnosis Date - Alcohol abuse, in remission - Anxiety - Benign essential tremor - Bipolar affective disorder (HCC) - Chronic pain - Depression - Emphysema lung (HCC) - Esophagitis - Hyperlipidemia - Hypothyroidism - Lumbago - Malnutrition (HCC) - Obstructive sleep apnea - Other testicular dysfunction - Stricture and stenosis of esophagus - Tobacco abuse - Vitamin D deficiency - Weight loss PSH: PAST SURGICAL HISTORY Procedure Laterality Date - COLONOSCOP W/ OR W/O [email or web address] SPEC 12/18/2015 repeat 10 yrs - EGD N/A 04/16/2016 [facility]-removal foreign body - EGD - FB REMOVAL 03/21/2016 - EGD W/O OR W/BRUSH/WASH 09/03/2005 EGD - EGD W/O OR W/BRUSH/WASH 12/18/2015 EGD - INGUINAL HERNIA REPAIR HX -2009 left - ORCHIECTOMY SIMPLE 10/2009 left -- for pain- chronic inflammation - PAST SURGICAL HISTORY OF Right Right forearm laceration repair - PAST SURGICAL HISTORY OF removal of all teeth - TONSILLECTOMY HX CURRENT MEDS: Current Outpatient Prescriptions: HYDROcodone-acetaminophen (NORCO) 5-325 mg per tablet Take 1 tablet by mouth twice daily. ritonavir (NORVIR) 100 mg capsule Take 100 mg by mouth once daily. primidone (MYSOLINE) 50 mg tablet Take 2 tablets by mouth three times daily. DESCOVY 200-25 mg tab(s) Take 1 tablet by mouth daily at bedtime. VITAMIN D-3 2,000 unit cap Take 1 capsule by mouth once daily. CULTURELLE 10 billion cell capsule Take 1 capsule by mouth once daily. PREZISTA 800 mg Take 1 tablet by mouth once daily. Cholecalciferol, Vitamin D3, (VITAMIN D) 1,000 unit cap Take 1,000 Units by mouth once daily. QUEtiapine (SEROQUEL) 100 mg tablet Take 100 mg by mouth once daily. finasteride (PROSCAR) 5 mg tablet Take 5 mg by mouth once daily. levothyroxine (SYNTHROID) 150 mcg tablet Take 150 mcg by mouth daily before breakfast. tamsulosin ER (FLOMAX) 0.4 mg cp24 Take 0.4 mg by mouth daily at bedtime. gabapentin (NEURONTIN) 600 mg tablet Take 600 mg by mouth three times daily. No current facility-administered medications for this visit. ALLERGIES: ALLERGIES Allergen Reactions - Keflex [Cephalexin] Swelling - Penicillins unknown childhood FMH: FAMILY HISTORY Problem Relation Age of Onset - Heart Mother - other (tremor) Mother - Heart Father - other (tremor) Brother SOCIAL: Social History Marital status: Single Spouse name: Years of education: Number of children: Social History Main Topics Smoking status: Current Every Day Smoker Packs/day: 0.00 Years: 20.00 Types: Cigars Smokeless tobacco: Never Used Comment: 1 cigar a day Alcohol use: No Comment: 9 years sober Drug use: No REVIEW OF SYSTEMS (In addition to HPI): Per HPI PHYSICAL EXAM: BP 143/79 Pulse 70 Ht 182.9 cm (6') Wt 65.8 kg (145 lb) BMI 19.67 kg/m? GEN: Alert. NAD. Normal affect. Cooperative. HEENT: No icterus. Normal mucosa. NECK/BACK: Supple RESP: easy respirations CV: no edema EXT: No cyanosis. No erythema. SKIN: No rashes. No lesions. NEUROLOGICAL: MENTAL STATUS: Alert and oriented. Thought process and content unremarkable. Follows commands appropriately. Speech fluent. CN: II: PERRLA. III, IV, : EOMI. No ptosis present. V: Symmetric facial sensation to LT. VII: Face symmetric. VIII: Hearing symmetrically decreased. No nystagmus. IX, X: Symmetric palatal rise. XI: Symmetric shoulder shrug. XII: Tongue midline with symmetric movements. MOTOR: Atrophy intrinsic hand muscles RIGHT UE: LEFT UE Deltoid 5/5 Deltoid 5/5 Biceps 5/5 Biceps 5/5 WE 5/5 WE 5/5 RIGHT LE: LEFT LE: HF 5-/5 HF 5-/5 KE 5/5 KE 5/5 CEREBELLAR: Normal F-N-F. Normal H-S. No dysmetria. No nystagmus. GAIT: Stable primary gait. With cane. Mildly wide based MOVEMENT EXAM: Movement disorders examination: To quantify parkinsonism, Part III of the MDS-Unified Parkinson?s Disease Rating Scale was performed and detailed in the succeeding sections in this report. Please see the neurological health status section or the next paragraph for details. Each item is scored from 0 to 4. In general, a score of 0 means normal; 1 means mild; 2 means moderate; 3 means moderate to severe; 4 means severe. Motor UPDRS SPEECH OFF 1 FACIAL EXPRESSION OFF 0 REST TREMOR - CRANIAL OFF 0 REST TREMOR - HANDS RT OFF 0 REST TREMOR - HANDS LT OFF 0 REST TREMOR - FEET RT OFF 0 REST TREMOR - FEET LT OFF 0 ACTION TREMOR - RT OFF 0.5 ACTION TREMOR - LT OFF 1 RIGIDITY - UE - RT OFF 0 RIGIDITY - UE - LT OFF 0 FINGER TAPS - RT OFF 0 FINGER TAPS - LT OFF 0 HAND WIRER HELPER - RT OFF 0 HAND WIRER HELPER - LT OFF 0 PRONATE/SUPINATE - RT OFF 0 PRONATE/SUPINATE - LT OFF 0 Writing small and tremulous. Very tremulous spiral with left hand, mild with right ASSESSMENT: 57 year old male with history significant for alcoholism, HIV, bipolar disorder, with likely essential tremor. His tremors persist despite being off lithium and Reglan. Exam appears to be improved compared to at Dr. Roth's visit but still with tremors mainly affecting writing, worse on the left. BP runs low so propranolol would not be a good choice. Will increase primidone slowly to 150 mg TID. If not effective or does not tolerate consider addition of Topamax. Urged him to discuss interactions between primidone and his HIV medications with physician that manages his HIV meds. PLAN: ---> Increase primidone 50 mg AM PM bedtime Week 1 2 tablets 2 tablets 3 tablets Week 2 3 tablets 2 tablets 3 tablets Week 3 and on 3 tablets 3 tablets 3 tablets ---> Follow-up: 3 months with Marjan Villegas M.D. [facility] [place] Department of [facility] cc: SELF Phone: N/A Fax: [phone] / [facility] [address] Salena Villegas MD 11/24/2017 9:19 AM Signed Increase primidone 50 mg AM PM bedtime Week 1 2 tablets 2 tablets 3 tablets Week 2 3 tablets 2 tablets 3 tablets Week 3 and on 3 tablets 3 tablets 3 tablets Referring Provider: SELF [200] Allergies As of Date: 11/24/2017 Noted Allergy Reaction KEFLEX (CEPHALEXIN) 12/02/2007 7 - Swelling PENICILLINS 12/02/2007 Comments: unknown childhood Date Reviewed: 11/24/2017 Reviewed by: Salena Villegas - Fully Assessed Primary Visit Diagnosis:Essential tremor [G25.0] Order(s):primidone (MYSOLINE) 50 mg tabletTake 2 tablets QAM, 2 tablets QPM, 3 tablets QHS x1 week. Then 3 tablets QAM, 2 tablets QPM, 3 tablets QHS x1 wek. Then take 3 tablets TIDDisp: 270 tabletRfl: 5 Prescriptions as of 11/24/2017 Sig: HYDROCODONE 5 MG-ACETAMINOPHE* Take 1 tablet by mouth twice * RITONAVIR 100 MG CAPSULE Take 100 mg by mouth once ladan* DESCOVY 200 MG-25 MG TABLET Take 1 tablet by mouth daily * VITAMIN D3 2,000 UNIT CAPSULE Take 1 capsule by mouth once * CULTURELLE 10 BILLION CELL CA* Take 1 capsule by mouth once * PREZISTA 800 MG TABLET Take 1 tablet by mouth once d* CHOLECALCIFEROL (VITAMIN D3) * Take 1,000 Units by mouth onc* QUETIAPINE 100 MG TABLET Take 100 mg by mouth once ladan* FINASTERIDE 5 MG TABLET Take 5 mg by mouth once daily. LEVOTHYROXINE 150 MCG TABLET Take 150 mcg by mouth daily b* TAMSULOSIN 0.4 MG CAPSULE Take 0.4 mg by mouth daily at* GABAPENTIN 600 MG TABLET Take 600 mg by mouth three ti* PRIMIDONE 50 MG TABLET Take 2 tablets QAM, 2 tablets* Problem List As Of Date 11/24/2017 Noted Resolved Bipolar disorder, unspecified (HCC) [F31.9] INVALID FOR* Priority: D More... Mixed hyperlipidemia [E78.2] INVALID FOR* Priority: D Cholelithiasis [K80.20] INVALID FOR* More... Varicocele [I86.1] INVALID FOR* Testicular pain [N50.819] INVALID FOR* Priority: A More... More... Stricture and Stenosis of Esophagus [K22.2] Alcohol Abuse, in Remission INVALID FOR* More... Unspecified Orchitis and Epididymitis [N45.3] INVALID FOR* Lumbar radicular syndrome [M54.16] INVALID FOR* More... Tremor [R25.1] INVALID FOR* Weight loss [R63.4] INVALID FOR* Priority: C Acquired hypothyroidism [E03.9] INVALID FOR* Priority: D Dehydration [E86.0] INVALID FOR* Loss of weight [R63.4] INVALID FOR* Priority: C Esophageal mass [K22.9] INVALID FOR* Priority: A More... Odynophagia [R13.10] INVALID FOR* Priority: B More... Malnutrition of moderate degree (HCC) [E44.0] INVALID FOR* Pancytopenia (HCC) [D61.818] INVALID FOR* Drug-induced tremor [G25.1] INVALID FOR* Essential tremor [G25.0] INVALID FOR* Other instructions from your clinician: Increase primidone 50 mg AM PM bedtime Week 1 2 tablets 2 tablets 3 tablets Week 2 3 tablets 2 tablets 3 tablets Week 3 and on 3 tablets 3 tablets 3 tablets Prescriptions ordered this encounter Disp Refills Start End PRIMIDONE 50 MG TABLET 270 * 5 11/24/2017 Sig: Take 2 tablets QAM, 2 tablets QPM, 3 tablets QHS x1 week. Then 3 tablets QAM, 2 tablets QPM, 3 tablets QHS x1 wek. Then take 3 tablets TID Medications Discontinued During This Encounter acetaminophen (TYLENOL) 500 mg tablet 30 t* 0 07/31/2016 11/24/2017 Class: Print RX Route: ORAL Sig: Take 1-2 tablets by mouth every 4 hours as needed. Patient not taking: Reported on 11/24/2017 Disc: Reason for discontinue is not on file. lactulose (DUPHALAC, CONSTULOSE) 20 * 1 Hussein* 0 07/31/2016 11/24/2017 Class: Print RX Route: ORAL Sig: Take 30 mL by mouth twice daily. Patient not taking: Reported on 11/24/2017 Disc: Reason for discontinue is not on file. pantoprazole DR (PROTONIX) 40 mg tab* 60 t* 1 08/01/2016 11/24/2017 Class: Call Rx Route: ORAL Sig: Take 1 tablet by mouth twice daily before meals (0600/1600). Disc: Reason for discontinue is not on file. primidone (MYSOLINE) 250 mg tablet 11/24/2017 Class: Historical Med Route: ORAL Sig: Take 250 mg by mouth twice daily. Morning and evening Disc: Reason for discontinue is not on file. propranolol (INDERAL) 60 mg tablet 11/24/2017 Class: Historical Med Route: ORAL Sig: Take 60 mg by mouth daily at bedtime. Disc: Reason for discontinue is not on file. simvastatin 20 mg ORAL tablet 30 t* 11 02/14/2011 11/24/2017 Route: ORAL Sig: Take 1 tablet by mouth daily at bedtime. Patient not taking: Reported on 11/24/2017 Disc: Reason for discontinue is not on file. triamcinolone acetonide topical 0.5 * 10/09/2016 11/24/2017 Class: Historical Med Sig: Disc: Reason for discontinue is not on file. metoclopramide HCl (REGLAN) 10 mg ta* 11/24/2017 Class: Historical Med Route: ORAL Sig: Take 10 mg by mouth twice daily. Disc: Reason for discontinue is not on file. lithium carbonate 300 mg tablet 11/24/2017 Class: Historical Med Route: ORAL Sig: Take 300 mg by mouth daily at bedtime. Two capsules at bedtime Disc: Reason for discontinue is not on file. lithium carbonate (ESKALITH) 300 mg * 06/03/2017 11/24/2017 Class: Historical Med Route: ORAL Sig: Take 1 capsule by mouth daily at bedtime. Disc: Reason for discontinue is not on file. SULFAMETHOXAZOLE/TRIMETHOPRIM (SMZ-T* 11/24/2017 Class: Historical Med Route: ORAL Sig: Take 1 tablet by mouth once daily. Smz/tmp Ds 800- 160 tab Takes 1 tablet daily Yolanda Avi Gomez June 11, 2017 3:03 PM Disc: Reason for discontinue is not on file. primidone (MYSOLINE) 50 mg tablet 06/10/2017 11/24/2017 Class: Historical Med Route: ORAL Sig: Take 2 tablets by mouth three times daily. Disc: Reason for discontinue is not on file. Disposition: Return in about 3 months (around 02/24/2018) for with Marjan Caro. Follow-up and Disposition History Recorded Questionnaire: UPDRS - MOTOR EXAMINATION OFF SPEECH OFF -> 1 FACIAL EXPRESSION OFF -> 0 REST TREMOR - CRANIAL OFF -> 0 REST TREMOR - HANDS RT OFF -> 0 REST TREMOR - HANDS LT OFF -> 0 REST TREMOR - FEET RT OFF -> 0 REST TREMOR - FEET LT OFF -> 0 ACTION TREMOR - RT OFF -> 0.5 ACTION TREMOR - LT OFF -> 1 RIGIDITY - UE - RT OFF -> 0 RIGIDITY - UE - LT OFF -> 0 FINGER TAPS - RT OFF -> 0 FINGER TAPS - LT OFF -> 0 HAND WIRER HELPER - RT OFF -> 0 HAND WIRER HELPER - LT OFF -> 0 PRONATE/SUPINATE - RT OFF -> 0 PRONATE/SUPINATE - LT OFF -> 0 Encounter Status:Closed by SALENA VILLEGAS MD on 11/24/17 SPINE LUMBAR Observed: 11/16/2017 Status: F Source: [place] (ROUTINE) 3:15 PM [facility] REPOSITORY [facility] Imaging Services [address] [place] [address] Spine Lumbar (Routine) MR#: [id number] Acct: [id number] Name: KATHYA RASHEED Rep #: [id number] : 1960 M 57 From: Aubrey Dinero MD PCP: Taz Johnson MD Status: REG CLI Study: Spine Lumbar (Routine) Date of Exam: 11/16/17 Exam# [id number] Ordering Dr: Issa Snow MD STUDY: MRI LUMBAR SPINE WITHOUT CONTRAST REASON FOR EXAM: Male, 57 years old. Bilateral hip pain TECHNIQUE: Standardized fat and water weighted pulse sequences were obtained in the sagittal and axial planes. COMPARISON: None FINDINGS: There is spondylolysis of L5 with a second degree spondylolisthesis of L5 over S1 and narrowing of the L5-S1 disc space. The rest of the disc spaces are of normal height and signal intensity. There are no abnormal marrow infiltrative processes in the conus medullaris terminates at L1. T12-L1: Normal endplates. Normal disc height, hydration and morphology. Normal bilateral facet joints. Normal central canal and bilateral lateral recesses. Normal bilateral intervertebral neural foramina. L1-2: Normal endplates. Normal disc height, hydration and morphology. Normal bilateral facet joints. Normal central canal and bilateral lateral recesses. Normal bilateral intervertebral neural foramina. L2-3: Normal endplates. Normal disc height, hydration and morphology. Normal bilateral facet joints. Normal central canal and bilateral lateral recesses. Normal bilateral intervertebral neural foramina. L3-4: Normal endplates. Normal disc height, hydration and morphology. Normal bilateral facet joints. Normal central canal and bilateral lateral recesses. Normal bilateral intervertebral neural foramina. L4-5: Normal endplates. Normal disc height, hydration and morphology. Normal bilateral facet joints. Normal central canal and bilateral lateral recesses. Normal bilateral intervertebral neural foramina. L5-S1: Disc space narrowing. No focal disc protrusion or extrusion. A second degree spondylolisthesis of L5 over S1. Spondylolysis of L5 The aorta is normal. A 1.6 cm benign right renal cyst. MRI/Spine Lumbar (Routine) IMPRESSION: Spondylolysis at L5 with a second-degree spondylolisthesis of L5 over S1. 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 [place] [address] Fax [facility]ATION SERVICES DISCHARGE SUMMARY MR#: [id number] Acct: [id number] Name: KATHYA RASHEED Rep #: [id number] : 1960 57 From: Fabrice Newberry M.A., CFY-ARCHIVIST ECONOMIC HISTORY Referring Dr.: Taz Johnson MD Status: REG R Insurance: [facility] *IN NETWORK SELF PAY INSURANCE ST Discharge Summary - Discharged: Discharge: The Patient has participated in 5 skilled speech- language intervention sessions targeting moderate oropharyngeal dysphagia (R13.12) likely secondary to a combination of human immunodeficiency virus (HIV) infection, chronic obstructive pulmonary disease, presbyphagia, and general deconditioning, with grade III SILENT aspiration identified under fluoroscopy. The Patient currently is managing diet preparation without complication (nectar thickened liquids) and has demonstrated sufficient execution of postural adjustments to facilitate optimal intake safety, though admits to non-compliance with morning coffee / intermittently during intake of coffee during AA meetings, and occasional intake of thin liquid soda. Patient fully aware and able to express aspiration risk and potential medical complications with recurrent aspiration, with continued intention to continue with current level of adherence due to considerations for quality of life, which is reasonable given demonstrated level of insight. The Patient is considered at higher risk of pulmonary complications associated with aspiration when considering medical diagnosis (HIV) and nature of aspiration (silent). Patient reporting that he was recently prescribed Quetiapine / Seroquel, which does have an association with silent aspiration (though would caution direct attribution), again further questions diagnosis of chronic obstructive pulmonary disease, as both were identified as potential risk factors for silent aspiration. At current juncture all goals have been met, with both this clinician and the Patent agree to advance with discharge <Electronically signed by Fabrice Newberry M.A., CFY-ARCHIVIST ECONOMIC HISTORY> 11/05/17 1252 CC: Taz Johnson MD [facility] Signed CBC W/DIFF, AUTOMATED Collected: 10/28/2017 Status: F Source: [place] 7:29 AM [facility] REPOSITORY TYPE CODE TESTS RESULT OUT OF RANGE REFERENCE UNITS LAB L100.1000 4.4-11.0 K/mm3 Normal WBC 9.4 LAB L100.1200 4.6-6.2 M/mm3 Low RBC 4.29 LAB L100.1300 13.0-16.5 g/dl Normal HGB 15.7 LAB L100.1400 40-54 % Normal HCT 45.0 LAB L100.1500 80-94 fL High MCV 104.9 LAB L100.1600 27.0-32.0 pg High MCH 36.6 LAB L100.1700 32-36 g/gl Normal MCHC 34.9 LAB L100.1810 11.6-14.6 % High RDW CV 14.9 LAB L100.1820 35.1-43.9 fl High RDW SD 57.1 LAB L100.1900 150-450 K/mm3 Normal PLT 196 LAB L100.2000 6.2-12.0 fl Normal MPV 9.9 LAB L100.2100 47-70 % Normal NEUT% 60.9 LAB L100.2200 19-41 % Normal LY% 26.6 LAB L100.2300 0-10 % Normal MONO% 8.7 LAB L100.2400 0-5 % Normal EO% 2.1 LAB L100.2500 0-1 % Normal BASO% 0.5 LAB L100.2550 0.0-0.9 % High IM GRAN % 1.200 Result Comment: IG% - Immature Granulocytes (promyelocytes, myelocytes and metamyelocytes) > 1% indicates that a LEFT SHIFT is Present. LAB L100.2620 2.0-7.7 X10 3/uL Normal Absolute Neut 5.7 LAB L100.2720 0.83-4.51 X10 3/ul Normal Absolute Lymph 2.49 Performed By: #### L100.0100 #### [facility] [address] [place], [address] COMPREHENSIVE METABOLIC Collected: 10/28/2017 Status: F Source: [facility] 7:29 AM [facility] REPOSITORY Order Comment: Comments: WBLOOD/LAV/ACDA TUBE/RT TYPE CODE TESTS RESULT OUT OF RANGE REFERENCE UNITS LAB L501.0100 74-106 mg/dL Normal GLU 85 Result Comment: Please note revised GLUCOSE reference range effective 2017. LAB L501.1000 7-18 mg/dL Normal BUN 8 LAB L501.1100 0.70-1.30 mg/dL Normal CREAT,SERUM 1.11 Result Comment: The validity of the calculated GFR AND GFRAA in patients over 70 years has not been determined. Clinical correlation is essential. LAB L501.1110 >60 mL/min Normal EST GFR 72 Result Comment: Non- GFR Calc LAB L501.1115 >60 mL/min Normal EST GFR - AA 87 Result Comment: GFR Calc LAB L501.1300 10-20 RATIO Low BUN/CRE 7.2 LAB L501.1500 6.4-8.2 g/dL Normal T PROT 7.3 LAB L501.1800 3.2-5.0 g/dL Low ALB 3.1 LAB L501.1950 2.2-4.2 g/dL Normal GLOB 4.2 LAB L501.2000 0.9-2.4 RATIO Low A/G 0.7 LAB L501.2200 8.5-10.1 mg/dL Normal CA 9.1 LAB L501.4100 15-37 U/L Normal AST 15 LAB L501.4305 45-117 U/L Normal ALK P 113 LAB L501.4405 16-61 U/L Normal ALT 19 LAB L501.4600 0.20-1.00 mg/dL Normal T BILI 0.40 LAB L501.5300 136-145 mmol/L Normal NA 139 LAB L501.5600 3.5-5.1 mmol/L Normal K 4.0 LAB L501.5900 98-107 mmol/L Normal CL 105 LAB L501.6100 21.0-32.0 mmol/L Normal CO2 27.0 LAB L501.6200 5-15 Normal GAP 7 Performed By: #### L500.4050, L500.4100 #### [facility] [address] [place], [place], [id number] LIPID PROFILE Collected: 10/28/2017 Status: F Source: [place] 7:29 AM [facility] REPOSITORY Order Comment: Comments: WBLOOD/LAV/ACDA TUBE/RT TYPE CODE TESTS RESULT OUT OF RANGE REFERENCE UNITS LAB L501.4900 200 mg/dL High CHOL 216 Result Comment: <200 mg/dL Desirable 200-240 mg/dL Borderline >240 mg/dL High Risk LAB L501.5000 mg/dL High TRIG 314 Result Comment: The drugs N-Acetylcysteine and Metamizole may falsely depress this assay. Serum Triglycerides Reference Interval Normal <150 mg/dL Borderline high 150 - 199 mg/dL High 200 - 499 mg/dL Very High > or = 500 mg/dL LAB L501.6400 mg/dL Low HDL 24 Result Comment: The drugs N-Acetylcysteine and Metamizole may falsely depress this assay. Reference Range HDL <40 mg/dL Low HDL Cholesterol HDL >or= 60 mg/dL High HDL Cholesterol LAB L501.6500 0-130 mg/dL Normal LDL 129 LAB L501.6600 5-40 mg/dL High VLDL 63 Performed By: #### L500.4050, L500.4100 #### [facility] [address] [place], [place], [id number] MISCELLANEOUS LAB Collected: 10/28/2017 Status: F Source: [place] PROCEDURE 7:29 AM [facility] REPOSITORY Order Comment: Comments: WBLOOD/LAV/ACDA TUBE/RT Test(s) Ordered: TCELLS ABSOLUTE AND SUBSETS [id number] TYPE CODE TESTS RESULT OUT OF RANGE REFERENCE UNITS LAB L801.1541 Normal [facility] TEST Result Comment: TEST RESULT FLAG UNITS REF INTERVAL T + B-Lymphocyte Differential Abs.CD19+ Lymphs 214 /uL 12 - 645 Absolute CD 3 1740 /uL 622 - 2402 Absolute CD 4 [place] 691 /uL 359 - 1519 Abs. CD 8 Suppressor 1061 High /uL 109 - 897 % CD19+ Lymphs 8.9 % 3.3 - 25.4 % CD 3 Pos. Lymph. 72.5 % 57.5 - 86.2 % CD 4 Pos. Lymph. 28.8 Low % 30.8 - 58.5 % CD 8 Pos. Lymph. 44.2 High % 12.0 - 35.5 CD4/CD8 Ratio 0.65 Low 0.92 - 3.72 WBC 8.9 x10E3/uL 3.4 - 10.8 RBC 4.32 x10E6/uL 4.14 - 5.80 Hemoglobin 15.4 g/dL 13.0 - 17.7 Hematocrit 44.9 % 37.5 - 51.0 MCV 104 High fL 79 - 97 MCH 35.6 High pg 26.6 - 33.0 MCHC 34.3 g/dL 31.5 - 35.7 RDW 15.5 High % 12.3 - 15.4 Platelets 221 x10E3/uL 150 - 379 Neutrophils 63 % Not Estab. Lymphs 27 % Not Estab. Monocytes 8 % Not Estab. Eos 2 % Not Estab. Basos 0 % Not Estab. Neutrophils (Absolute) 5.5 x10E3/uL 1.4 - 7.0 Lymphs (Absolute) 2.4 x10E3/uL 0.7 - 3.1 Monocytes(Absolute) 0.7 x10E3/uL 0.1 - 0.9 Eos (Absolute) 0.2 x10E3/uL 0.0 - 0.4 Baso (Absolute) 0.0 x10E3/uL 0.0 - 0.2 Immature Granulocytes 0 % Not Estab. Immature Grans (Abs) 0.0 x10E3/uL 0.0 - 0.1 TESTING PERFORMED AT [facility]. ORIGINAL REPORT ON FILE IN LAB CONTAINS ADDITIONAL TEST SITE INFORMATION. Performed By: #### L801.1541 #### [facility] [address] [place], [address] HIV VIRAL LOAD Collected: 10/28/2017 Status: F Source: [place] QUANT 7:29 AM [facility] REPOSITORY TYPE CODE TESTS RESULT OUT OF RANGE REFERENCE UNITS LAB L3890.4100 . copies/mL Normal HIV-1 40 RNA,QUANT Result Comment: The reportable range for this assay is 20 to 10,000,000 copies HIV-1 RNA/mL. LAB L3890.4200 . Normal log10 HIV-1 1.602 RNA Result Comment: Result Units: dqo99xfzz/mL Performed at: [address] [id number] Packaging Design Engineer: José Miguel Alexis MD, Phone: [phone] Performed By: #### L3890.4000 #### [facility] (refer to report for specific site) refer to report for address and phone number PELVIS 1 OR 2 VIEWS Observed: 09/24/2017 Status: F Source: [place] 4:54 PM [facility] REPOSITORY [facility] Imaging Services [address] [place] [address] Pelvis 1 or 2 Views MR#: [id number] Acct: [id number] Name: JAYLENMAYUR Rep #: [id number] : 1960 M 57 From: Aubrey Dinero MD PCP: Taz Johnson MD Status: REG CLI Study: Pelvis 1 or 2 Views Date of Exam: 09/24/17 Exam# [id number] Ordering Dr: Issa Snow MD STUDY: X-RAY - PELVIS REASON FOR EXAM: Male, 57 years old. Pain TECHNIQUE: One view of the pelvis was obtained. COMPARISON: None. FINDINGS: There is a non-specific bowel gas pattern. Normal visualized soft tissue structures. Normal bilateral iliac wings, sacroiliac joints and visualized sacrum. Normal visualized bilateral superior and inferior pubic rami. Normal pubic symphysis. Normal ischial tuberosities. Normal visualized right femoral head. Normal right acetabulum. Normal right hip joint. Normal visualized left femoral head. Normal left acetabulum. Normal left hip joint. RAD/Pelvis 1 or 2 Views IMPRESSION: Normal x-ray examination of the pelvis. No fracture Electronically Signed: Aubrey Dinero, at 5:17 EDT Tel , Service support , CC: Issa Snow MD; Taz Johnson MD Transfer Engineer: Signed SACRUM-COCCYX MIN 2 VIEWS Observed: 09/24/2017 Status: F Source: [place] 4:54 PM [facility] REPOSITORY [facility] Imaging Services [address] [place] [address] Sacrum-Coccyx min 2 Views MR#: [id number] Acct: [id number] Name: KATHYA RASHEED Rep #: [id number] : 1960 M 57 From: Aubrey Dinero MD PCP: Taz Jonhson MD Status: REG CLI Study: Sacrum-Coccyx min 2 Views Date of Exam: 09/24/17 Exam# [id number] Ordering Dr: Issa Snow MD STUDY: X-RAY - SACRUM/COCCYX REASON FOR EXAM: Male, 57 years old. Pain TECHNIQUE: 3 view(s) of the sacrum and coccyx were obtained. COMPARISON: None. FINDINGS: L5-S1 disc space narrowing with a 2 cm spondylolisthesis of L5 over S1. There are no fractures of the sacrococcygeal bones Electronically Signed: Aubrey Dinero, at 5:19 EDT Tel , Service support , RAD/Sacrum-Coccyx min 2 Views CC: Issa Snow MD; Taz Johnson MD Transfer Engineer: Signed CBC-COMPLETE BLOOD CNT Collected: 09/21/2017 Status: F Source: [place] NO DIFF 3:27 PM [facility] REPOSITORY Order Comment: Order Date: 09/21/17 Order Info: 32786-5 - CBC TYPE CODE TESTS RESULT OUT OF RANGE REFERENCE UNITS LAB L100.1000 4.4-11.0 K/mm3 Normal WBC 9.8 LAB L100.1200 4.6-6.2 M/mm3 Low RBC 3.92 LAB L100.1300 13.0-16.5 g/dl Normal HGB 14.2 LAB L100.1400 40-54 % Normal HCT 40.7 LAB L100.1500 80-94 fL High MCV 103.8 LAB L100.1600 27.0-32.0 pg High MCH 36.2 LAB L100.1700 32-36 g/gl Normal MCHC 34.9 LAB L100.1810 11.6-14.6 % Normal RDW CV 14.0 LAB L100.1820 35.1-43.9 fl High RDW SD 52.6 LAB L100.1900 150-450 K/mm3 Normal PLT 156 LAB L100.2000 6.2-12.0 fl Normal MPV 10.2 Performed By: #### L100.0500, L500.4050, L501.9520, L506.0400 #### [facility] [address] [place], [address] COMPREHENSIVE METABOLIC Collected: 09/21/2017 Status: F Source: [place] PROFIL 3:27 PM [facility] REPOSITORY Order Comment: Order Date: 06/25/18 Order Info: 0786-1 - CMP Order Info: 3016-3 - TSH Order Info: 3024-7 - T4F TYPE CODE TESTS RESULT OUT OF RANGE REFERENCE UNITS LAB L501.0100 74-106 mg/dL Normal GLU 90 Result Comment: Please note revised GLUCOSE reference range effective 2017. LAB L501.1000 7-18 mg/dL High BUN 20 LAB L501.1100 0.70-1.30 mg/dL Normal CREAT,SERUM 1.11 Result Comment: The validity of the calculated GFR AND GFRAA in patients over 70 years has not been determined. Clinical correlation is essential. LAB L501.1110 >60 mL/min Normal EST GFR 72 Result Comment: Non- GFR Calc LAB L501.1115 >60 mL/min Normal EST GFR - AA 87 Result Comment: GFR Calc LAB L501.1300 10-20 RATIO Normal BUN/CRE 18.0 LAB L501.1500 6.4-8.2 g/dL T Normal PROT 6.7 LAB L501.1800 3.2-5.0 g/dL Normal ALB 3.2 LAB L501.1950 2.2-4.2 g/dL Normal GLOB 3.5 LAB L501.2000 0.9-2.4 RATIO Normal A/G 0.9 LAB L501.2200 8.5-10.1 mg/dL CA Normal 8.7 LAB L501.4100 15-37 U/L Normal AST 15 LAB L501.4305 45-117 U/L Normal ALK P 81 LAB L501.4405 16-61 U/L Normal ALT 28 LAB L501.4600 0.20-1.00 mg/dL T Normal BILI 0.40 LAB L501.5300 136-145 mmol/L NA Normal 140 LAB L501.5600 3.5-5.1 mmol/L K Normal 3.8 LAB L501.5900 98-107 mmol/L CL Normal 104 LAB L501.6100 21.0-32.0 mmol/L Normal CO2 28.0 LAB L501.6200 5-15 Normal GAP 8 Performed By: #### L100.0500, L500.4050, L501.9520, L506.0400 #### [facility] [address] [place], [address] THYROID STIM HORMONE Collected: 09/21/2017 Status: F Source: [place] (TSH) 3:27 PM [facility] REPOSITORY Order Comment: Order Date: 09/21/17 Order Info: 0786-1 - CMP Order Info: 3016-3 - TSH Order Info: 3024-7 - T4F TYPE CODE TESTS RESULT OUT OF RANGE REFERENCE UNITS LAB L501.9520 0.358-3.74 uIU/mL Normal TSH 2.47 Performed By: #### L100.0500, L500.4050, L501.9520, L506.0400 #### [facility] [address] [place], [address] T4 FREE DIRECT Collected: 09/21/2017 Status: F Source: [place] 3:27 PM [facility] REPOSITORY Order Comment: Order Date: 09/21/17 Order Info: 0786-1 - CMP Order Info: 3016-3 - TSH Order Info: 3024-7 - T4F TYPE CODE TESTS RESULT OUT OF RANGE REFERENCE UNITS LAB L506.0400 0.76-1.46 ng/dL Normal T4 FREE 0.99 DIRECT Performed By: #### L100.0500, L500.4050, L501.9520, L506.0400 #### [facility] [address] [place], [address] MODIFIED BARIUM Observed: 08/10/2017 Status: F Source: [place] SWALLOW STUDY 2:05 PM [facility] REPOSITORY [facility] Speech Pathology [address] [place] [address] Modified Barium Swallow Study MR#: [id number] Acct: [id number] Name: KATHYA RASHEED Rep #: [id number] : 1960 57 From: Fabrice Newberry M.A. CFY-ARCHIVIST ECONOMIC HISTORY PRIMARY / SECONDARY DIAGNOSIS: mild oropharyngeal dysphagia (R13.12) REFERRING PHYSICIAN: Dr. Taz Johnson MD CURRENT DIET: regular-soft textures, nectar thickened liquids DENTITION: dentures MENTAL STATUS: WNL RESPIRATORY STATUS: O2 via room air PREVIOUS MODIFIED BARIUM SWALLOW STUDY: 04/24/2017 MBS revealed moderate oropharyngeal dysphagia (R13.12) with SILENT aspiration of thin liquids 12/04/2016 MBS revealed severe oropharyngeal dysphagia (R13.12) with SILENT aspiration of thin and nectar thickened liquids. 06/22/2017 MBS revealed mild oropharyngeal dysphagia (R13.12) with intermittent transient penetration of thin liquids REASON FOR REFERRAL: Patient is a 57 year old male referred for a modified barium swallow (MBS) study to objectively assess the Patients oropharyngeal swallow function under fluoroscopy, with recent history of eosinophilic esophagitis along with prior identification of SILENT aspiration of thin and nectar thickened liquids under fluoroscopy. PEG tube placed 12/09/2016; still in place. Patient reports use of thickened liquids with exception of morning coffee and during intake of thin liquids following oral care. 04/09/2017 barium swallow study revealed normal plain film x-ray examination (barium swallow) of the esophagus. 11/24/2016 barium swallow study revealed normal plain film x-ray examination (barium swallow) of the esophagus. 05/05/2016 barium swallow study revealed small sliding hiatal hernia without gastroesophageal reflux. MEDICAL HISTORY: Human immunodeficiency virus (HIV) infection, chronic obstructive pulmonary disease, chronic back pain, esophageal dysphagia with esophageal strictures, esophageal ulcers, and eosinophilic esophagitis, poor dental hygiene, anemia, chronic renal failure, xerostomia, bipolar disorder (recent admission for suicidal ideations), pancytopenia, hypothyroidism, history of alcohol abuse, hyperlipidemia, hypothyroidism, and tobacco use. STUDY FINDINGS: Patient participated in a Modified Barium Swallow (MBS) study on 06/10/2017. Dr. Bellamy was the radiologist present for this evaluation. This study was recorded in the lateral view and images were sent to PACs for storage. The following consistencies were presented to this patient for analysis of oropharyngeal swallow function: thin liquids, nectar thickened liquids, pudding, and a regular textured, Deanna Doone cookie. Results of the MBS are as follows: PENETRATION / ASPIRATION SCALE (GONZALEZ): 1 = does not enter airway 2 = enters airway/above vocal folds/ejected 3 = enters airway/above vocal folds/not ejected 4 = enters airway/contacts vocal folds/ejected 5 = enters airway/contacts vocal folds/not ejected 6 = enters airway/below vocal folds/ejected 7 = enters airway/below vocal folds/not ejected despite effort 8 = enters airway/below vocal folds/no effort VIDEOFLOROSCOPIC SCALE SCORE (GONZALEZ): Grade I = aspiration of material that has penetrated into the laryngeal vestibule, intact cough reflex Grade II = aspiration < 10 % of the bolus, intact cough reflex Grade III = aspiration of < 10 % of the bolus, reduced cough reflex or aspiration of > 10 % of the bolus, intact cough reflex Grade IV = aspiration of > 10 % of the bolus, reduced cough reflex PENETRATION / ASPIRATION SCALE (SCORE) WITH VIDEOFLOROSCOPIC SCALE SCORE: Thin liquids via straw (sequential swallows): 8 - Grade III Thin liquids via cup (chin tuck): 1 Thin liquids via cup (chin tuck): 2 Thin liquids via cup (chin tuck): 2 Thin liquids via cup (chin tuck): 2 Thin liquids via cup (single sip): 2 [place] thickened liquids via cup (single sip): 1 [place] thickened liquids via cup (single sip): 2 [place] thickened liquids via cup (single sip): 1 [place] thickened liquids via cup (single sip): 1 [place] thickened liquids via cup (single sip): 2 Pudding via spoon: 1 Regular textured cookie: 1 [place] thickened liquids via cup (chin tuck): 2 IMPRESSION: DIAGNOSIS: moderate oropharyngeal dysphagia (R13.12) ORAL PHASE CHARACTERIZED BY: LABIAL SEAL: no labial escape TONGUE CONTROL DURING BOLUS MANIPULATION: posterior escape of less than half of bolus BOLUS PREPARATION / MASTICATION: slow prolonged chewing/mashing with complete recollection BOLUS TRANSPORT / LINGUAL MOTION: brisk tongue motion ORAL RESIDUE: trace residue lining oral structures PHARYNGEAL PHASE CHARACTERIZED BY: INITIATION OF PHARYNGEAL SWALLOW: bolus head in pyriforms at first hyoid excursion SOFT PALATE ELEVATION: no bolus between soft palate and pharyngeal wall LARYNGEAL ELEVATION: partial superior movement of thyroid cartilage/partial approximation of arytenoids cartilage to epiglottic petiole ANTERIOR HYOID EXCURSION: partial anterior movement EPIGLOTTIC MOVEMENT: intermittent partial epiglottic inversion LARYNGEAL VESTIBULE CLOSURE AT HEIGHT OF SWALLOW: incomplete laryngeal vestibule closure with narrow column of air/contrast in laryngeal vestibule PHARYNGEAL STRIPPING WAVE: pharyngeal stripping wave present / complete PHARYNGOESOPHAGEAL SEGMENT OPENING: complete distension and complete duration with no obstruction of flow TONGUE BASE RETRACTION: trace column of contrast between tongue base and posterior pharyngeal wall PHARYNGEAL RESIDUE: intermittent collection of residue within or on pharyngeal structures ESOPHAGEAL PHASE CHARACTERIZED BY: ESOPHAGEAL BOLUS CLEARANCE IN THE UPRIGHT POSITION: could not view EFFECTS OF TREATMENT STRATEGIES ATTEMPTED: Chin tuck posture = moderately effective Reduced bolus size = moderately effective Removal of straw = effective DIET TEXTURE RECOMMENDATIONS: Will recommend a regular-soft textured, nectar thickened liquid diet. COMPENSATORY STRATEGIES RECOMMENDED: Reduced bolus volume, avoid straws, seated upright at 90 degrees during PO intake, remain upright for 30-60 minutes post meal (GERD precaution), medications with applesauce prior to, during, and following administration. INTERPRETATION OF RESULTS: Patient presents with moderate oropharyngeal dysphagia (R13.12) likely secondary to a combination of human immunodeficiency virus (HIV) infection, chronic obstructive pulmonary disease, presbyphagia, and general deconditioning, with results similar in nature to the 06/22/2017 MBS with the exception of SILENT aspiration during sequential trials of thin liquids via straw. Oral phase primarily marked by mild mastication inefficiency; and continued suboptimal lingual control resulting in premature bolus loss contributing to prandial penetration. Pharyngeal phase marked by mild to moderately impaired pharyngeal swallow onset timing contributing to prandial penetration of thin liquids; mild reduction in airway closure during deglutition contributing to prandial penetration; adequate pharyngeal motility. Inconsistent laryngeal vestibule pressure generated to expel penetrated material. All deficits ameliorated with bolus volume adjustments, diet texture adjustments, and execution of the chin tuck posture. Patient noted to SILENTLY aspirate with thin liquids during the current and previous MBS studies (04/24/2017, 12/04/2016), with clinical assessment at bedside relying on identification of classic overt signs and symptoms of aspiration unreliable. RECOMMENDATIONS: Would caution advancement to thin liquids, with suspected higher risk of pulmonary complications / intolerance of aspiration secondary to immunocompromising diagnosis. Suspect higher likelihood of non-compliance with dietary recommendations, with suspected current non-compliance with dietary recommendations (intermittent non-compliance reported). Would recommend caution in regards to removal of the Patients PEG tube; although the Patient is demonstrating improved PO tolerance, would consider the Patient at high risk of aspiration. Would consider continued implementation of the [place]ast[place] Free Water Protocol (FFWP) following Patient and family education IF the Patient has the adequate level of supervision, though would suspect the Patient would experience difficulty with comprehension and adequate implementation. Patient requires intensive skilled speech-language intervention targeting continued diet texture management; training and implementation of recommended compensatory strategies; training, implementation, and Patient education regarding implementation of the FFWP; Patient and caregiver training targeting meal preparation / thickened liquid preparation. ADDITIONAL COMMENTS/RECOMMENDATIONS: Results and recommendations were discussed with the Patient immediately following MBS completion, with the Patient verbalizing understanding and agreement with all recommendations and education provided. IMAGE COUNT: [id number] G-CODES: SWALLOWING G8996 Current Status: SWALLOWING G8997 Goal Status: SWALLOWING G8998 Discharge Status: 08/10/17 1405 <Electronically signed by Farbice Newberry M.A., CFY-ARCHIVIST ECONOMIC HISTORY> Date Fabrice Newberry M.A., CFY-ARCHIVIST ECONOMIC HISTORY Co-Signature Required for all Medicare patients Date/Time Co-Signature CC: SWALLOWING FUNCTION Observed: 08/10/2017 Status: F Source: [place] W/VIDEO 1:04 PM [facility] REPOSITORY [facility] Imaging Services [address] [place] [address] Swallowing Function w/Video MR#: [id number] Acct: [id number] Name: JAYLENMAYUR Rep #: [id number] : 1960 M 57 From: Sumanth Bellamy MD PCP: Taz Johnson MD Status: REG CLI Study: Swallowing Function w/Video Date of Exam: 08/10/17 Exam# [id number] Ordering Dr: Tim Johnson MD STUDY: SWALLOWING STUDY REASON FOR EXAM: Male, 57 years old. Dysphagia. TECHNIQUE: The examination was performed with Speech Pathology in attendance. Under fluoroscopic observation, the patient ingested thin barium, thick barium, barium pudding, and barium coated cracker. FLUOROSCOPY TIME: 2:20 minutes/seconds. 1944 spot radiographs were obtained. RADIOLOGIST INVOLVEMENT: Radiologist was present and providing direct supervision. COMPARISON: None. FINDINGS: The following was observed during swallowing of the various mixtures of barium: Thin Barium: Silent aspiration with ingestion of thin liquids. Intermittent penetration with ingestion of thin liquids with the chin tuck maneuver. Thick Barium: Intermittent penetration with ingestion of nectar thickened liquids. Barium Pudding: There was no evidence of aspiration or laryngeal penetration. Barium Coated Cracker: There was no evidence of aspiration or laryngeal penetration. RAD/Swallowing Function w/Video IMPRESSION: Silent aspiration with ingestion of thin liquids. The swallow study findings were discussed with the patient by the speech pathologist at the conclusion of the examination. Please see speech pathology report for more information and recommendations. Electronically Signed: Sumanth Bellamy MD at 13:44 EDT Tel [phone], Service support , CC: Taz Johnson MD Transfer Engineer: Signed MODIFIED BARIUM Observed: 06/22/2017 Status: F Source: [place] SWALLOW STUDY 1:47 PM [facility] REPOSITORY [facility] Speech Pathology [address] [place] [address] Modified Barium Swallow Study MR#: [id number] Acct: [id number] Name: KATHYA RASHEED Rep #: [id number] : 1960 57 From: Fabrice Newberry M.A. CFY-ARCHIVIST ECONOMIC HISTORY PRIMARY / SECONDARY DIAGNOSIS: severe dysphagia (R13.12) REFERRING PHYSICIAN: Dr. Taz Johnson MD CURRENT DIET: regular-soft textures, nectar thickened liquids DENTITION: dentures MENTAL STATUS: WFL RESPIRATORY STATUS: O2 via room air PREVIOUS MODIFIED BARIUM SWALLOW STUDY: 04/24/2017 MBS revealed moderate oropharyngeal dysphagia (R13.12) with SILENT aspiration of thin liquids 12/04/2016 MBS revealed severe oropharyngeal dysphagia (R13.12) with SILENT aspiration of thin and nectar thickened liquids REASON FOR REFERRAL: Patient is a 57 year old male referred for a modified barium swallow (MBS) study to objectively assess the Patients oropharyngeal swallow function under fluoroscopy, with recent history of eosinophilic esophagitis along with prior identification of SILENT aspiration of thin and nectar thickened liquids under fluoroscopy. 04/09/2017 barium swallow study revealed normal plain film x-ray examination (barium swallow) of the esophagus. 11/24/2016 barium swallow study revealed normal plain film x-ray examination (barium swallow) of the esophagus. 05/05/2016 barium swallow study revealed small sliding hiatal hernia without gastroesophageal reflux. PEG tube placed 12/09/2016; still in place. Spoke with the Patients primarily outpatient therapist, Patient has not been compliant with his liquid diet level recommendation as suspected, education provided with samples and education regarding preparation of nectar thickened liquids, though suspect continued non-compliance despite efforts. Patient reports use of thickened liquids with exception of morning coffee and during intake of thin liquids following oral care. MEDICAL HISTORY: Human immunodeficiency virus (HIV) infection, chronic obstructive pulmonary disease, chronic back pain, esophageal dysphagia with esophageal strictures, esophageal ulcers, and eosinophilic esophagitis, poor dental hygiene, anemia, chronic renal failure, xerostomia, bipolar disorder (recent admission for suicidal ideations), pancytopenia, hypothyroidism, history of alcohol abuse, hyperlipidemia, hypothyroidism, and tobacco use. STUDY FINDINGS: Patient participated in a Modified Barium Swallow (MBS) study on 06/22/2017. Dr. Bellamy was the radiologist present for this evaluation. This study was recorded in the lateral view and images were sent to PACs for storage. The following consistencies were presented to this patient for analysis of oropharyngeal swallow function: thin liquids, pudding, and a regular textured, Deanna Doone cookie. Results of the MBS are as follows: PENETRATION / ASPIRATION SCALE (GONZALEZ): 1 = does not enter airway 2 = enters airway/above vocal folds/ejected 3 = enters airway/above vocal folds/not ejected 4 = enters airway/contacts vocal folds/ejected 5 = enters airway/contacts vocal folds/not ejected 6 = enters airway/below vocal folds/ejected 7 = enters airway/below vocal folds/not ejected despite effort 8 = enters airway/below vocal folds/no effort PENETRATION / ASPIRATION SCALE (SCORE): [place] thickened liquids via cup (single sip): 1 [place] thickened liquids via cup (single sip): 1 [place] thickened liquids via cup (single sip): 1 [place] thickened liquids via cup (chin tuck): 1 [place] thickened liquids via cup (chin tuck): 1 [place] thickened liquids via cup (chin tuck): 1 Pudding via spoon: 1 Regular textured cookie: 1 Thin liquids via cup (single sip): 2 Thin liquids via cup (single sip): 2 Thin liquids via cup (chin tuck): 2 Thin liquids via cup (chin tuck): 3 Thin liquids via straw (sequential swallows): 2 IMPRESSION: DIAGNOSIS: mild oropharyngeal dysphagia (R13.12) ORAL PHASE CHARACTERIZED BY: LABIAL SEAL: no labial escape TONGUE CONTROL DURING BOLUS MANIPULATION: posterior escape of less than half of bolus (thin liquids only) (improved) BOLUS PREPARATION / MASTICATION: slow prolonged chewing/mashing with complete recollection BOLUS TRANSPORT / LINGUAL MOTION: brisk tongue motion (improved) ORAL RESIDUE: trace residue lining oral structures PHARYNGEAL PHASE CHARACTERIZED BY: INITIATION OF PHARYNGEAL SWALLOW: bolus head in pyriforms at first hyoid excursion; bolus head at posterior laryngeal surface of epiglottis at first hyoid excursion with chin tuck posture SOFT PALATE ELEVATION: no bolus between soft palate and pharyngeal wall LARYNGEAL ELEVATION: partial superior movement of thyroid cartilage/partial approximation of arytenoids cartilage to epiglottic petiole ANTERIOR HYOID EXCURSION: partial anterior movement EPIGLOTTIC MOVEMENT: intermittent partial epiglottic inversion LARYNGEAL VESTIBULE CLOSURE AT HEIGHT OF SWALLOW: intermittent incomplete laryngeal vestibule closure with narrow column of air/contrast in laryngeal vestibule PHARYNGEAL STRIPPING WAVE: pharyngeal stripping wave present / complete PHARYNGOESOPHAGEAL SEGMENT OPENING: complete distension and complete duration with no obstruction of flow TONGUE BASE RETRACTION: trace column of contrast between tongue base and posterior pharyngeal wall (improved) PHARYNGEAL RESIDUE: intermittent collection of residue within or on pharyngeal structures ESOPHAGEAL PHASE CHARACTERIZED BY: ESOPHAGEAL BOLUS CLEARANCE IN THE UPRIGHT POSITION: could not view EFFECTS OF TREATMENT STRATEGIES ATTEMPTED: Chin tuck posture = effective Reduced bolus size = effective DIET TEXTURE RECOMMENDATIONS: Will recommend a regular-soft textured, nectar thickened liquid diet. COMPENSATORY STRATEGIES RECOMMENDED: Chin tuck, reduced bolus volume, avoid straws, seated upright at 90 degrees during PO intake, remain upright for 30-60 minutes post meal (GERD precaution), medications with applesauce prior to, during, and following administration. INTERPRETATION OF RESULTS: Patient presents with mild oropharyngeal dysphagia (R13.12) likely secondary to a combination of human immunodeficiency virus (HIV) infection, chronic obstructive pulmonary disease, presbyphagia, and general deconditioning. Oral phase primarily marked by mild mastication inefficiency; and continued (albeit improving) suboptimal lingual control resulting in premature bolus loss contributing to prandial penetration. Pharyngeal phase marked by mild to moderately impaired pharyngeal swallow onset timing contributing to prandial penetration of thin liquids; mild reduction in airway closure during deglutition contributing to prandial penetration; adequate pharyngeal motility. Inconsistent laryngeal vestibule pressure generated to expel penetrated material (albeit improving). All deficits ameliorated with bolus volume adjustments, diet texture adjustments, and execution of the chin tuck posture. Patient noted to SILENTLY aspirate with thin and nectar thickened liquids during previous MBS studies (04/24/2017, 12/04/2016); though no aspiration appreciated throughout trials throughout current study, unable to definitively rule out silent aspiration. RECOMMENDATIONS: Recommend a repeat modified barium swallow study within 6- 8 weeks (if clinically appropriate) to further assess the presence and extent of silent and overt aspiration prior to advancement to thin liquids. Would caution advancement to thin liquids at this time, as the Patient has demonstrated a gradual improvement in swallow functioning, with suspected higher risk of pulmonary complications / intolerance of aspiration secondary to immunocompromising diagnosis. Suspect higher likelihood of non-compliance with dietary recommendations, with suspected current non-compliance with dietary recommendations (intermittent non-compliance reported). Would recommend caution in regards to removal of the Patients PEG tube; although the Patient is demonstrating improved PO tolerance, would consider the Patient at high risk of aspiration. Would consider implementation of the Srivastava Free Water Protocol (FFWP) following Patient and family education IF the Patient has the adequate level of supervision, though would suspect the Patient would experience difficulty with comprehension and adequate implementation. Patient requires intensive skilled speech-language intervention targeting continued diet texture management; training and implementation of recommended compensatory strategies; training, implementation, and Patient education regarding implementation of the FFWP (if placement is appropriate); Patient and caregiver training targeting meal preparation / thickened liquid preparation. ADDITIONAL COMMENTS/RECOMMENDATIONS: Results and recommendations were discussed with the Patient immediately following MBS completion, with the Patient verbalizing understanding and agreement with all recommendations and education provided. IMAGE COUNT: [id number] G-CODES: SWALLOWING G8996 Current Status: SWALLOWING G8997 Goal Status: CI SWALLOWING G8998 Discharge Status: 06/22/17 1347 <Electronically signed by Fabrice Newberry M.A., CFY-ARCHIVIST ECONOMIC HISTORY> Date Fabrice Newberry M.A., CFY-ARCHIVIST ECONOMIC HISTORY Co-Signature Required for all Medicare patients Date/Time Co-Signature CC: SWALLOWING FUNCTION Observed: 06/22/2017 Status: F Source: [place] W/VIDEO 12:39 PM [facility] REPOSITORY [facility] Imaging Services [address] [place] [address] Swallowing Function w/Video MR#: [id number] Acct: [id number] Name: KATHYA RASHEED Rep #: [id number] : 1960 M 57 From: Sumanth Bellamy MD PCP: Taz Johnson MD Status: REG CLI Study: Swallowing Function w/Video Date of Exam: 06/22/17 Exam# [id number] Ordering Dr: Tim Johnson MD STUDY: SWALLOWING STUDY REASON FOR EXAM: Male, 57 years old. Dysphagia. TECHNIQUE: The examination was performed with Speech Pathology in attendance. Under fluoroscopic observation, the patient ingested thin barium, thick barium, barium pudding, and barium coated cracker. FLUOROSCOPY TIME: 1:44 minutes/seconds. 1598 spot images were obtained. RADIOLOGIST INVOLVEMENT: Radiologist was present and providing direct supervision. COMPARISON: Comparison is made with prior study dated October 25, 2017. FINDINGS: The following was observed during swallowing of the various mixtures of barium: Thin Barium: Transient penetration with ingestion of thin liquids. Thick Barium: There was no evidence of aspiration or laryngeal penetration. Barium Pudding: There was no evidence of aspiration or laryngeal penetration. Barium Coated Cracker: There was no evidence of aspiration or laryngeal penetration. RAD/Swallowing Function w/Video IMPRESSION: Transient penetration with ingestion of thin liquids. The swallow study findings were discussed with the patient by the speech pathologist at the conclusion of the examination. Please see speech pathology report for more information and recommendations. Electronically Signed: Sumanth Bellamy MD at 10:39 EDT Tel [phone], Service support , CC: Taz Johnson MD Transfer Engineer: Signed PROGRESS Observed: 06/11/2017 Status: COMPLETED Source: ORIENT 3:07 PM [facility] REPOSITORY HNO ID: [id number] Author: Jeronimo Roth Service: (none) Author Type: Physician Type: Progress Notes Filed: 06/12/2017 10:52 AM Note Text: June 11, 2017 Jeronimo Roth MD [address] [id number] Taz Johnson MD ([facility]) [address] [place] [id number] Taz Johnson MD ([facility]) [address] [place] [id number] Kathya Rasheed : 1960 History of Present Illness: Kathya Rasheed is a 57 year old year old left-handed man who is seen in consultation for evaluation of tremor. The patient is seen alone. The patient presented with tremor for at least 10 years; getting worse lately. He is unable to write and his ADL's are greatly impaired. He has prominent back pain problems; he gets epidural shots and he is on gabapentin. He denied history of spine surgery. He is taking Reglan 10 mg PO BID (the patient is not sure why; he denied nausea and he thinks he might be taking it as a propulsive agent). The patient was diagnosed with HIV in within last year. The patient multiple hospital admissions over the past few months; he was in the hospital recently and he still has PEG tube. The patient is able to have oral intake of food/medications and his treating physician is entertaining reversing PEG if the patient's swallowing function continues to improve. He is on [place] since 1993; since he was diagnosed as bipolar. His bipolar is stable; he is seeing Dr. Cristiane Rojas at the [facility]. The patient's tremor is greatly interfering with his quality of life; he may have trouble with eating, drinking and writing. PAST MEDICAL HISTORY Diagnosis Date - Alcohol abuse, in remission - Anxiety - Benign essential tremor - Bipolar affective disorder (HCC) - Chronic pain - Depression - Emphysema lung ([facility]) - Esophagitis - Hyperlipidemia - Hypothyroidism - Lumbago - Malnutrition (HCC) - Obstructive sleep apnea - Other testicular dysfunction - Stricture and stenosis of esophagus - Tobacco abuse - Vitamin D deficiency - Weight loss PAST SURGICAL HISTORY Procedure Laterality Date - COLONOSCOP W/ OR W/O [facility] SPEC 12/18/2015 repeat 10 yrs - EGD N/A 04/16/2016 [facility]-removal foreign body - EGD - FB REMOVAL 03/21/2016 - EGD W/O OR W/BRUSH/WASH 09/03/2005 EGD - EGD W/O OR W/BRUSH/WASH 12/18/2015 EGD - INGUINAL HERNIA REPAIR HX 2-2009 left - ORCHIECTOMY SIMPLE 10/2009 left -- for pain- chronic inflammation - PAST SURGICAL HISTORY OF Right Right forearm laceration repair - PAST SURGICAL HISTORY OF removal of all teeth - TONSILLECTOMY HX ALLERGIES Allergen Reactions - Keflex [Cephalexin] Swelling - Penicillins unknown childhood primidone (MYSOLINE) 50 mg tablet Take 2 tablets by mouth three times daily. DESCOVY 200-25 mg tab(s) Take 1 tablet by mouth daily at bedtime. VITAMIN D-3 2,000 unit cap Take 1 capsule by mouth once daily. CULTURELLE 10 billion cell capsule Take 1 capsule by mouth once daily. PREZISTA 800 mg Take 1 tablet by mouth once daily. lithium carbonate (ESKALITH) 300 mg capsule Take 1 capsule by mouth daily at bedtime. SULFAMETHOXAZOLE/TRIMETHOPRIM (SMZ-TMP DS ORAL) Take 1 tablet by mouth once daily. Smz/tmp Ds 800-160 tabTakes 1 tablet dailyHeakrysten De Luna 2017 3:03 PM metoclopramide HCl (REGLAN) 10 mg tablet Take 10 mg by mouth twice daily. QUEtiapine (SEROQUEL) 100 mg tablet Take 100 mg by mouth once daily. finasteride (PROSCAR) 5 mg tablet Take 5 mg by mouth once daily. levothyroxine (SYNTHROID) 150 mcg tablet Take 150 mcg by mouth daily before breakfast. tamsulosin ER (FLOMAX) 0.4 mg cp24 Take 0.4 mg by mouth daily at bedtime. gabapentin (NEURONTIN) 600 mg tablet Take 600 mg by mouth three times daily. triamcinolone acetonide topical 0.5 % ointment Cholecalciferol, Vitamin D3, (VITAMIN D) 1,000 unit cap Take 1,000 Units by mouth once daily. pantoprazole DR (PROTONIX) 40 mg tablet Take 1 tablet by mouth twice daily before meals (0600/1600). acetaminophen (TYLENOL) 500 mg tablet Take 1-2 tablets by mouth every 4 hours as needed. lactulose (DUPHALAC, CONSTULOSE) 20 gram/30 mL solution Take 30 mL by mouth twice daily. lithium carbonate 300 mg tablet Take 300 mg by mouth daily at bedtime. Two capsules at bedtime propranolol (INDERAL) 60 mg tablet Take 60 mg by mouth daily at bedtime. primidone (MYSOLINE) 250 mg tablet Take 250 mg by mouth twice daily. Morning and evening simvastatin 20 mg ORAL tablet Take 1 tablet by mouth daily at bedtime. Family hisotry: 2 brother and 1 sister; older brother also has tremor. The patient has no children. Mother passed at 52 and father at 65; both due to MD. Mother also had tremor. Social History: Patient lives at home alone, does not drink alcohol, does not smoke and is disabled, does not drive. Review of Systems: Review of symptoms with patient included the following specific symptoms: mobility, speech, swallowing, drooling, pneumonia, weight loss, appetite, nausea, vomiting, abdominal pain, bladder and bowel function, chills, sweats, fatigue, edema, dizziness/lightheadedness, sexual function, mood, sleep, memory, confusion, psychosis, pain, skin changes, seizures, heart problems, breathing problems, numbness, and allergies. PHYSICAL EXAMINATION: General Description of Patient: Thin and Disheveled Head: NCAT Neck: No bruits, full ROM, supple Cardiac: Regular Rate and Rhythm and No murmur Extremities: No leg edema, Pulses intact and No rash or venous stasis changes FOCUSED NEUROLOGIC EXAMINATION: Mental Status: Normal language and cognition but no formal scales were done today. Cranial Nerves: Fundi normal, PERRL, EOMI, VF full, Face symmetric, Tongue and palate symmetric, V1-V3 sensation intact, SCM and trapezius strength normal Sensory: Normal fine touch Reflexes: DTRs normal throughout, babinski absent Motor: Normal bulk and strength except for distal right wrist weakness/FDI atrophy (long-term consequences of old time right head injury; he put his hand through the glass window...). Coordination/Gait: Finger to nose normal Specifically, the patient had left more than right action hand tremor. I didn't see resting tremor today during the examination. Left- hand tremor has prominent reemergence pattern. The patient's handwriting was fairly small its very jerky. The patient was unable to copy Archimedes spiral due to significant tremor. The patient had slow, shuffling and stooped forward gait. Assessment/Plan: Mr. Rasheed is a 57 year old year old man presenting with history and physical examination findings consistent with action tremor. The patient has long-term history of bipolar disorder treated with lithium for at least 20 years. Last year, the patient was diagnosed with HIV infection and went through multiple medical problems. The patient's tremor has features consistent not only with high amplitude with essential tremor but also features that could be congruent with drug-induced tremor. The patient is taking Reglan 10 mg twice a day which is very well known to cause drug-induced tremor. In addition, the patient is on lithium that is also a very well known tremorogenic medication. The patient is taking 300 mg of primidone a day; he couldn't tolerate a higher dose of primidone in the past because of sedation. Use of beta blockers is very problematic in this case because of relative hypertension/bradycardia. I discussed the above with the patient length and addressed his questions. I feel that at the present time the best course of action is to eliminate metoclopramide; it can be replaced with another propulsive agent or discontinued altogether. I will defer to the patient's treating shock absorption floor layer Dr. Johnson who is prescribing this medication. Also, one may consider switching from lithium to an alternative mood stabilizer such as lamotrigine that would not exacerbate tremor. I will complete defer to the patient's treating psychiatrist Dr. Cristiane Rojas in making this adjustment. I would continue with current primidone regimen (50 mg tablets 2 tablets 3 times a day); this is a reasonable dose and increasing primidone dose in the past resulted in excessive sedation. Use of beta blockers is problematic because of bradycardia/hypotension. Therefore, the best course of action at the moment is 2 eliminate tremorogenic medications (metoclopramide and lithium). Next step may involve consideration of gamma knife or high-frequency ultrasound procedure to address tremor. Follow-up in approximately 4-6 months once the patient has a chance to implement the above-mentioned medication adjustments. i Medical decision making was high complexity due to patient's, multiple symptoms, advancing disease, complex treatment regimen, multiple medications and risk of side effects, difficult medication management, and high side effect risk, cognitive/behavioral problems effecting or limiting treatment options, diagnostic difficulties Time spent with patient was 80 minutes with greater than half of this time spent in counseling related to tremor, drug-induced tremor, gait problems. Jeronimo Roth M.D. Staff Neurologist [facility] Cc: Cristiane PARKER MD Phone Fax E-mail Address ? [phone] Not available. [address] ? [place] [address] ? ? CNOV Observed: 06/11/2017 Status: COMPLETED Source: [place] 2:40 PM [facility] REPOSITORY Office Visit ([id number]) KATHYA RASHEED ([id number]) 1960 M Date Time Provider Department 06/11/17 2:40 PM JERONIMO ROTH [id number] During your visit today, we recorded the following information about you: Pulse Respiration Blood pressure Weight 62/minute 16/minute 124/68 67.6 kg Height 1.829 m Jeronimo Roth MD 06/12/2017 10:52 AM Signed June 11, 2017 Jeronimo Roth MD [address] [place] [address] Taz Johnson MD ([facility]) [address] [facility] [address] Taz Johnson MD ([facility]) [address] [place] [address] Kathya Rasheed : 1960 History of Present Illness: Kathya Rasheed is a 57 year old year old left-handed man who is seen in consultation for evaluation of tremor. The patient is seen alone. The patient presented with tremor for at least 10 years; getting worse lately. He is unable to write and his ADL's are greatly impaired. He has prominent back pain problems; he gets epidural shots and he is on gabapentin. He denied history of spine surgery. He is taking Reglan 10 mg PO BID (the patient is not sure why; he denied nausea and he thinks he might be taking it as a propulsive agent). The patient was diagnosed with HIV in within last year. The patient multiple hospital admissions over the past few months; he was in the hospital recently and he still has PEG tube. The patient is able to have oral intake of food/medications and his treating physician is entertaining reversing PEG if the patient's swallowing function continues to improve. He is on [place] since 1993; since he was diagnosed as bipolar. His bipolar is stable; he is seeing Dr. Cristiane Rojas at the [facility]. The patient's tremor is greatly interfering with his quality of life; he may have trouble with eating, drinking and writing. PAST MEDICAL HISTORY Diagnosis Date - Alcohol abuse, in remission - Anxiety - Benign essential tremor - Bipolar affective disorder (HCC) - Chronic pain - Depression - Emphysema lung (HCC) - Esophagitis - Hyperlipidemia - Hypothyroidism - Lumbago - Malnutrition (HCC) - Obstructive sleep apnea - Other testicular dysfunction - Stricture and stenosis of esophagus - Tobacco abuse - Vitamin D deficiency - Weight loss PAST SURGICAL HISTORY Procedure Laterality Date - COLONOSCOP W/ OR W/O [email or web address] SPEC 12/18/2015 repeat 10 yrs - EGD N/A 04/16/2016 [facility]-removal foreign body - EGD - FB REMOVAL 03/21/2016 - EGD W/O OR W/BRUSH/WASH 09/03/2005 EGD - EGD W/O OR W/BRUSH/WASH 12/18/2015 EGD - INGUINAL HERNIA REPAIR HX 2-2009 left - ORCHIECTOMY SIMPLE 10/2009 left -- for pain- chronic inflammation - PAST SURGICAL HISTORY OF Right Right forearm laceration repair - PAST SURGICAL HISTORY OF removal of all teeth - TONSILLECTOMY HX ALLERGIES Allergen Reactions - Keflex [Cephalexin] Swelling - Penicillins unknown childhood primidone (MYSOLINE) 50 mg tablet Take 2 tablets by mouth three times daily. DESCOVY 200-25 mg tab(s) Take 1 tablet by mouth daily at bedtime. VITAMIN D-3 2,000 unit cap Take 1 capsule by mouth once daily. CULTURELLE 10 billion cell capsule Take 1 capsule by mouth once daily. PREZISTA 800 mg Take 1 tablet by mouth once daily. lithium carbonate (ESKALITH) 300 mg capsule Take 1 capsule by mouth daily at bedtime. SULFAMETHOXAZOLE/TRIMETHOPRIM (SMZ-TMP DS ORAL) Take 1 tablet by mouth once daily. Smz/tmp Ds 800-160 tabTakes 1 tablet dailyHeather Avi Calixto 2017 3:03 PM metoclopramide HCl (REGLAN) 10 mg tablet Take 10 mg by mouth twice daily. QUEtiapine (SEROQUEL) 100 mg tablet Take 100 mg by mouth once daily. finasteride (PROSCAR) 5 mg tablet Take 5 mg by mouth once daily. levothyroxine (SYNTHROID) 150 mcg tablet Take 150 mcg by mouth daily before breakfast. tamsulosin ER (FLOMAX) 0.4 mg cp24 Take 0.4 mg by mouth daily at bedtime. gabapentin (NEURONTIN) 600 mg tablet Take 600 mg by mouth three times daily. triamcinolone acetonide topical 0.5 % ointment Cholecalciferol, Vitamin D3, (VITAMIN D) 1,000 unit cap Take 1,000 Units by mouth once daily. pantoprazole DR (PROTONIX) 40 mg tablet Take 1 tablet by mouth twice daily before meals (0600/1600). acetaminophen (TYLENOL) 500 mg tablet Take 1-2 tablets by mouth every 4 hours as needed. lactulose (DUPHALAC, CONSTULOSE) 20 gram/30 mL solution Take 30 mL by mouth twice daily. lithium carbonate 300 mg tablet Take 300 mg by mouth daily at bedtime. Two capsules at bedtime propranolol (INDERAL) 60 mg tablet Take 60 mg by mouth daily at bedtime. primidone (MYSOLINE) 250 mg tablet Take 250 mg by mouth twice daily. Morning and evening simvastatin 20 mg ORAL tablet Take 1 tablet by mouth daily at bedtime. Family hisotry: 2 brother and 1 sister; older brother also has tremor. The patient has no children. Mother passed at 52 and father at 65; both due to MD. Mother also had tremor. Social History: Patient lives at home alone, does not drink alcohol, does not smoke and is disabled, does not drive. Review of Systems: Review of symptoms with patient included the following specific symptoms: mobility, speech, swallowing, drooling, pneumonia, weight loss, appetite, nausea, vomiting, abdominal pain, bladder and bowel function, chills, sweats, fatigue, edema, dizziness/lightheadedness, sexual function, mood, sleep, memory, confusion, psychosis, pain, skin changes, seizures, heart problems, breathing problems, numbness, and allergies. PHYSICAL EXAMINATION: General Description of Patient: Thin and Disheveled Head: NCAT Neck: No bruits, full ROM, supple Cardiac: Regular Rate and Rhythm and No murmur Extremities: No leg edema, Pulses intact and No rash or venous stasis changes FOCUSED NEUROLOGIC EXAMINATION: Mental Status: Normal language and cognition but no formal scales were done today. Cranial Nerves: Fundi normal, PERRL, EOMI, VF full, Face symmetric, Tongue and palate symmetric, V1-V3 sensation intact, SCM and trapezius strength normal Sensory: Normal fine touch Reflexes: DTRs normal throughout, babinski absent Motor: Normal bulk and strength except for distal right wrist weakness/FDI atrophy (long-term consequences of old time right head injury; he put his hand through the glass window...). Coordination/Gait: Finger to nose normal Specifically, the patient had left more than right action hand tremor. I didn't see resting tremor today during the examination. Left- hand tremor has prominent reemergence pattern. The patient's handwriting was fairly small its very jerky. The patient was unable to copy Archimedes spiral due to significant tremor. The patient had slow, shuffling and stooped forward gait. Assessment/Plan: Mr. Rasheed is a 57 year old year old man presenting with history and physical examination findings consistent with action tremor. The patient has long-term history of bipolar disorder treated with lithium for at least 20 years. Last year, the patient was diagnosed with HIV infection and went through multiple medical problems. The patient's tremor has features consistent not only with high amplitude with essential tremor but also features that could be congruent with drug-induced tremor. The patient is taking Reglan 10 mg twice a day which is very well known to cause drug-induced tremor. In addition, the patient is on lithium that is also a very well known tremorogenic medication. The patient is taking 300 mg of primidone a day; he couldn't tolerate a higher dose of primidone in the past because of sedation. Use of beta blockers is very problematic in this case because of relative hypertension/bradycardia. I discussed the above with the patient length and addressed his questions. I feel that at the present time the best course of action is to eliminate metoclopramide; it can be replaced with another propulsive agent or discontinued altogether. I will defer to the patient's treating shock absorption floor layer Dr. Johnson who is prescribing this medication. Also, one may consider switching from lithium to an alternative mood stabilizer such as lamotrigine that would not exacerbate tremor. I will complete defer to the patient's treating psychiatrist Dr. Cristiane Rojas in making this adjustment. I would continue with current primidone regimen (50 mg tablets 2 tablets 3 times a day); this is a reasonable dose and increasing primidone dose in the past resulted in excessive sedation. Use of beta blockers is problematic because of bradycardia/hypotension. Therefore, the best course of action at the moment is 2 eliminate tremorogenic medications (metoclopramide and lithium). Next step may involve consideration of gamma knife or high- frequency ultrasound procedure to address tremor. Follow-up in approximately 4-6 months once the patient has a chance to implement the above-mentioned medication adjustments. i Medical decision making was high complexity due to patient's, multiple symptoms, advancing disease, complex treatment regimen, multiple medications and risk of side effects, difficult medication management, and high side effect risk, cognitive/behavioral problems effecting or limiting treatment options, diagnostic difficulties Time spent with patient was 80 minutes with greater than half of this time spent in counseling related to tremor, drug-induced tremor, gait problems. Jeronimo Roth M.D. Staff Neurologist [facility] Cc: Cristiane PARKER MD Phone Fax E-mail Address ? [phone] Not available. [address] ? [facility] [id number] ? ? Referring Provider: TAZ JOHNSON [[id number]] Allergies As of Date: 06/11/2017 Noted Allergy Reaction KEFLEX (CEPHALEXIN) 12/02/2007 7 - Swelling PENICILLINS 12/02/2007 Comments: unknown childhood Date Reviewed: 06/11/2017 Reviewed by: Yolanda Cárdenas Ma - Fully Assessed Reason for Visit: New Patient Evaluation [154] Primary Visit Diagnosis:Weight loss [R63.4] Other Visit Diagnoses:Drug-induced tremor [G25.1] Bipolar affective disorder in remission (HCC) [F31.70] Essential tremor [G25.0] Prescriptions as of 06/11/2017 Sig: PRIMIDONE 50 MG TABLET Take 2 tablets by mouth three* DESCOVY 200 MG-25 MG TABLET Take 1 tablet by mouth daily * VITAMIN D3 2,000 UNIT CAPSULE Take 1 capsule by mouth once * CULTURELLE 10 BILLION CELL CA* Take 1 capsule by mouth once * PREZISTA 800 MG TABLET Take 1 tablet by mouth once d* LITHIUM CARBONATE 300 MG CAPS* Take 1 capsule by mouth daily* SMZ-TMP DS ORAL Take 1 tablet by mouth once d* METOCLOPRAMIDE 10 MG TABLET Take 10 mg by mouth twice ladan* QUETIAPINE 100 MG TABLET Take 100 mg by mouth once ladan* FINASTERIDE 5 MG TABLET Take 5 mg by mouth once daily. LEVOTHYROXINE 150 MCG TABLET Take 150 mcg by mouth daily b* TAMSULOSIN 0.4 MG CAPSULE Take 0.4 mg by mouth daily at* GABAPENTIN 600 MG TABLET Take 600 mg by mouth three ti* TRIAMCINOLONE ACETONIDE 0.5 %* CHOLECALCIFEROL (VITAMIN D3) * Take 1,000 Units by mouth onc* PANTOPRAZOLE 40 MG TABLET,DEL* Take 1 tablet by mouth twice * ACETAMINOPHEN 500 MG TABLET Take 1-2 tablets by mouth josey* LACTULOSE 20 GRAM/30 ML ORAL * Take 30 mL by mouth twice ladan* LITHIUM CARBONATE 300 MG TABL* Take 300 mg by mouth daily at* PROPRANOLOL 60 MG TABLET Take 60 mg by mouth daily at * PRIMIDONE 250 MG TABLET Take 250 mg by mouth twice da* SIMVASTATIN 20 MG TABLET Take 1 tablet by mouth daily * Medication notes this encounter PRIMIDONE 50 MG TABLET >> Yolanda Cárdenas Jd 06/11/2017 3:02 PM >> TEVINLYNDSAY YOLANDA GOMEZ [facility] Jun 11, 2017 3:02 PM Received from: External Pharmacy DESCOVY 200 MG-25 MG TABLET >> Yolanda Cárdenas Jd 06/11/2017 3:02 PM >> TEVINLYNDSAY YOLANDA GOMEZ [facility] Jun 11, 2017 3:02 PM Received from: External Pharmacy VITAMIN D3 2,000 UNIT CAPSULE >> Yolanda Antoniolyndsay Gomez 06/11/2017 3:02 PM >> TEVINLYNDSAY YOLANDA GOMEZ [facility] Jun 11, 2017 3:02 PM Received from: External Pharmacy CULTURELLE 10 BILLION CELL CAPSULE >> Yolanda Antoniolyndsay Gomez 06/11/2017 3:02 PM >> AVI YOLANDA GOMEZ [facility] Jun 11, 2017 3:02 PM Received from: External Pharmacy PREZISTA 800 MG TABLET >> Yolanda Avi Gomez 06/11/2017 3:02 PM >> AVI YOLANDA GOMEZ [facility] Jun 11, 2017 3:02 PM Received from: External Pharmacy LITHIUM CARBONATE 300 MG CAPSULE >> Yolanda Avi Gomez 06/11/2017 3:02 PM >> AVI YOLANDA GOMEZ [facility] Jun 11, 2017 3:02 PM Received from: External Pharmacy TRIAMCINOLONE ACETONIDE 0.5 % TOPICAL OINTMENT >> Yolanda Avi Gomez 06/11/2017 3:05 PM >> AVI YOLANDA GOMEZ [facility] Jun 11, 2017 3:05 PM Not on med list Yolanda Avi Gomez June 11, 2017 3:05 PM CHOLECALCIFEROL (VITAMIN D3) 1,000 UNIT CAPSULE >> Yolanda Avi Gomez 06/11/2017 3:04 PM >> AVI YOLANDA GOMEZ [facility] Jun 11, 2017 3:04 PM Incorrect Yolanda Avi Gomez June 11, 2017 3:04 PM PANTOPRAZOLE 40 MG TABLET,DELAYED RELEASE >> Yolanda Avi Gomez 06/11/2017 3:05 PM >> AVI YOLANDA GOMEZ [facility] Jun 11, 2017 3:05 PM Not On med list Yolanda Cárdenas Ma June 11, 2017 3:05 PM ACETAMINOPHEN 500 MG TABLET >> Yolanda Cárdenas Ma 06/11/2017 3:05 PM >> AVI YOLANDA GOMEZ [facility] Jun 11, 2017 3:05 PM Not on med list Yolanda Cárdenas Ma June 11, 2017 3:05 PM LACTULOSE 20 GRAM/30 ML ORAL SOLUTION >> Yolanda Cárdenas Ma 06/11/2017 3:05 PM >> YOLANDA CÁRDENAS MA [facility] Jun 11, 2017 3:05 PM Not on med list Yolanda Cárdenas Ma June 11, 2017 3:05 PM LITHIUM CARBONATE 300 MG TABLET >> Yolanda Cárdenas Ma 06/11/2017 3:02 PM >> YOLANDA CÁRDENAS MA [facility] Jun 11, 2017 3:02 PM Duplicate Yolanda Cárdenas Ma June 11, 2017 3:02 PM PROPRANOLOL 60 MG TABLET >> Yolanda Cárdenas Ma 06/11/2017 3:05 PM >> YOLANDA CÁRDENAS MA [facility] Jun 11, 2017 3:05 PM Not On med list Yolanda Cárdenas Ma June 11, 2017 3:05 PM PRIMIDONE 250 MG TABLET >> Yolanda Cárdenas Ma 06/11/2017 3:05 PM >> YOLANDA CÁRDENAS MA [facility] Jun 11, 2017 3:05 PM Not on med list Yolanda Cárdenas Ma June 11, 2017 3:05 PM SIMVASTATIN 20 MG TABLET >> Yolanda Cárdenas Ma 06/11/2017 3:05 PM >> YOLANDA CÁRDENAS MA [facility] Jun 11, 2017 3:05 PM Not On med list Yolanda Cárdenas Ma June 11, 2017 3:05 PM Problem List As Of Date 06/11/2017 Noted Resolved Bipolar disorder, unspecified (HCC) [F31.9] INVALID FOR* Priority: D More... Mixed hyperlipidemia [E78.2] INVALID FOR* Priority: D Cholelithiasis [K80.20] INVALID FOR* More... Varicocele [I86.1] INVALID FOR* Testicular pain [N50.819] INVALID FOR* Priority: A More... More... Stricture and Stenosis of Esophagus [K22.2] Alcohol Abuse, in Remission INVALID FOR* More... Unspecified Orchitis and Epididymitis [N45.3] INVALID FOR* Lumbar radicular syndrome [M54.16] INVALID FOR* More... Tremor [R25.1] INVALID FOR* Weight loss [R63.4] INVALID FOR* Priority: C Acquired hypothyroidism [E03.9] INVALID FOR* Priority: D Dehydration [E86.0] INVALID FOR* Loss of weight [R63.4] INVALID FOR* Priority: C Esophageal mass [K22.9] INVALID FOR* Priority: A More... Odynophagia [R13.10] INVALID FOR* Priority: B More... Malnutrition of moderate degree (HCC) [E44.0] INVALID FOR* Pancytopenia (HCC) [D61.818] INVALID FOR* Encounter Status:Closed by JERONIMO ROTH MD on 06/12/17 ADULT EVALUATION - SP Observed: 06/11/2017 Status: F Source: [place] 11:27 AM [facility] REPOSITORY [facility] [address] [place] [address] Fax REHABILITATION SERVICES INITIAL EVALUATION MR#: [id number] Acct: [id number] Name: KATHYA RASHEED Rep #: [id number] : 1960 57 From: Ronaldo Plata M.A., [facility]-ARCHIVIST ECONOMIC HISTORY Referring Dr.: Taz Johnson MD Status: REG RCR Insurance: [employer] [facility] *IN NETWORK SELF PAY INSURANCE History - History Date of Eval: 06/11/17 Medical Diagnosis (from RX): Dysphagia Previous speech therapy: Yes Results: At [facility], operated by [facility] while there for 7 weeks. Other Relevant Medical History/Diagnoses/Surgery: Alcoholism, Bipolar, HIV +, COPD, Eonsinophilia. Last summer patient became weaker and weaker and lost weight. Mental illness has been ongoing. Medications related to this diagnosis: Finasteride, Levothyroxine, SMz.tpm, Norvir, Prezista, Vitamin D, Tamsulosin, [place], Quetiapine, Culture[place], Gabapentin, Metoclopram, Pimidone Smoking Status: Smoker, status unknown Hx Smoking: Yes - cigar Hx Tobacco Use: No - Pain Is pain an issue with your current prescribed condition?: No - Personal Education History: High school graduate. Occupation: Disability Right Hearing Abillity: Hard of Hearing Left Hearing Abillity: Hard of Hearing Visual Assistive Devices: Glasses Patients Living Arrangements: Alone Patient Allergies - Allergies Allergies cephalexin monohydrate [From Keflex] Allergy (Severe, Verified 05/07/17 11:31) Swelling Penicillins [PCN] Allergy (Severe, Verified 05/07/17 11:31) Unknown Subjective Oral Motor - Subjective Dentures ill fitting: Yes - Comments Comments: Dentures are loose but he uses therogrip to keep them in place. He said they stay in place usually well for 2 days. Objective Oral Motor - Oral Status Dentition: Upper Dentures - Labial Observation at Rest: WNL Pucker: WNL Retraction: WNL Alternating Pucker/Retraction: WNL Involuntary Movement noted: No - Lingual Impairment: Mild Protrusion: WNL Retraction: WNL Lateralization: WNL - Lingual Comments Comments: Elevation was mildly reduced. - Jaw Impairment: WNL Opening: WNL Closing: WNL - Respiratory Status Respiratory Status: Room Air Subjective Dysphagia - Symptoms Reported Symptoms/Problems with: Xerostomia, Hx of Aspiration - Current Diet Solids Current Diet: Soft - Current Diet Liquids Current Liquids: Thin Objective Dysphagia - Administered by Administered by: Self - [place] Thickened Liquids Administered via: Cup Symptoms: Throat Clearing Laryngeal Elevation: Impaired Positioning: Chin Tuck Other Positioning: Only intermittent use of chin tuck Oral Holding: No Gagging: No Patient Report: Patient reported no deficits. Comments: Noted wet vocal quality without using chin tuck one time out of three drinks. He intermittently used a chin tuck and a natural double swallow. - Results Swallowing Within Normal Limits: No Swallowing Diagnosis: Oropharyngeal Phase Dysphagia Severity: Moderate Modified Barium Results Hx MBS Report Entered: Yes MBS Results (from prior exam): 06/11/17 11:24 Speech Therapy by Ronaldo Plata PRIMARY / SECONDARY DIAGNOSIS: dysphagia (R13.12) REFERRING PHYSICIAN: Dr. Taz Johnson MD CURRENT DIET: unclear: reports consumption of regular textures, thin liquids with PEG supplementation DENTITION: dentures MENTAL STATUS: suboptimal RESPIRATORY STATUS: O2 via room air PREVIOUS MODIFIED BARIUM SWALLOW STUDY: 12/04/2016 MBS revealed severe oropharyngeal dysphagia (R13.12) with SILENT aspiration of thin and nectar thickened liquids REASON FOR REFERRAL: Patient is a 56 year old male referred for a modified barium swallow (MBS) study to objectively assess the Patients oropharyngeal swallow function under fluoroscopy, with recent history of eosinophilic esophagitis along with prior identification of SILENT aspiration of thin and nectar thickened liquids under fluoroscopy. 04/09/2017 barium swallow study revealed normal plain film x-ray examination (barium swallow) of the esophagus. 11/24/2016 barium swallow study revealed normal plain film x-ray examination (barium swallow) of the esophagus. 05/05/2016 barium swallow study revealed small sliding hiatal hernia without gastroesophageal reflux. PEG tube placed 12/09/2016. MEDICAL HISTORY: Human immunodeficiency virus (HIV) infection, chronic obstructive pulmonary disease, chronic back pain, esophageal dysphagia with esophageal strictures, esophageal ulcers, and eosinophilic esophagitis, poor dental hygiene, anemia, chronic renal failure, xerostomia, bipolar disorder (recent admission for suicidal ideations), pancytopenia, hypothyroidism, history of alcohol abuse, hyperlipidemia, hypothyroidism, and tobacco use STUDY FINDINGS: Patient participated in a Modified Barium Swallow (MBS) study on 04/23/2017. Dr. Bellamy was the radiologist present for this evaluation. This study was recorded in the lateral view and images were sent to PACs for storage. The following consistencies were presented to this patient for analysis of oropharyngeal swallow function: thin liquids, nectar thickened liquids, pudding, and a regular textured, Deanna Doone cookie. Results of the MBS are as follows: PENETRATION / ASPIRATION SCALE (GONZALEZ): 1 = does not enter airway 2 = enters airway/above vocal folds/ejected 3 = enters airway/above vocal folds/not ejected 4 = enters airway/contacts vocal folds/ejected 5 = enters airway/contacts vocal folds/not ejected 6 = enters airway/below vocal folds/ejected 7 = enters airway/below vocal folds/not ejected despite effort 8 = enters airway/below vocal folds/no effort VIDEOFLOROSCOPIC SCALE SCORE (GONZALEZ): Grade I = aspiration of material that has penetrated into the laryngeal vestibule, intact cough reflex Grade II = aspiration < 10 % of the bolus, intact cough reflex Grade III = aspiration of < 10 % of the bolus, reduced cough reflex or aspiration of > 10 % of the bolus, intact cough reflex Grade IV = aspiration of > 10 % of the bolus, reduced cough reflex PENETRATION / ASPIRATION SCALE (SCORE) WITH VIDEOFLOROSCOPIC SCALE SCORE: Thin liquids via cup (sequential swallows): 6 Thin liquids via cup (sequential swallows): 3 Thin liquids via cup (single sip): 1 Thin liquids via cup (single sip): 4 Thin liquids via straw (single sip): 4 Thin liquids via straw (chin tuck): 2 Thin liquids via straw (chin tuck): 1 Thin liquids via straw (chin tuck): 1 Pudding via spoon: 1 Regular textured cookie: 1 Thin liquids via straw (chin tuck): 8 - Grade III Thin liquids via straw (chin tuck): 1 [place] thickened liquids via cup (single sip): 4 [place] thickened liquids via cup (chin tuck): 1 [place] thickened liquids via cup (chin tuck): 1 [place] thickened liquids via cup (chin tuck): 1 IMPRESSION: DIAGNOSIS: moderate oropharyngeal dysphagia (R13.12) ORAL PHASE CHARACTERIZED BY: LABIAL SEAL: no labial escape TONGUE CONTROL DURING BOLUS MANIPULATION: intermittent posterior escape of greater than half of bolus; consistent posterior escape of less than half of bolus BOLUS PREPARATION / MASTICATION: slow prolonged chewing/mashing with complete recollection (improved) BOLUS TRANSPORT / LINGUAL MOTION: delayed initiation of tongue motion (improved) ORAL RESIDUE: trace residue lining oral structures (improved) PHARYNGEAL PHASE CHARACTERIZED BY: INITIATION OF PHARYNGEAL SWALLOW: bolus head at posterior laryngeal surface of epiglottis at first hyoid excursion SOFT PALATE ELEVATION: no bolus between soft palate and pharyngeal wall LARYNGEAL ELEVATION: partial superior movement of thyroid cartilage/partial approximation of arytenoids cartilage to epiglottic petiole (improved) ANTERIOR HYOID EXCURSION: partial anterior movement (improved) EPIGLOTTIC MOVEMENT: partial epiglottic inversion LARYNGEAL VESTIBULE CLOSURE AT HEIGHT OF SWALLOW: incomplete laryngeal vestibule closure with narrow column of air/contrast in laryngeal vestibule PHARYNGEAL STRIPPING WAVE: pharyngeal stripping wave present / complete (improved) PHARYNGOESOPHAGEAL SEGMENT OPENING: complete distension and complete duration with no obstruction of flow (improved) TONGUE BASE RETRACTION: narrow column of contrast between tongue base and posterior pharyngeal wall PHARYNGEAL RESIDUE: collection of residue within or on pharyngeal structures (improved) primarily with more viscous textures ESOPHAGEAL PHASE CHARACTERIZED BY: ESOPHAGEAL BOLUS CLEARANCE IN THE UPRIGHT POSITION: could not view EFFECTS OF TREATMENT STRATEGIES ATTEMPTED: Chin tuck posture = effective Double swallow = effective Reduced bolus size = effective Removal of straw = effective DIET TEXTURE RECOMMENDATIONS: Will recommend a regular-soft textured, nectar thickened liquid diet. COMPENSATORY STRATEGIES RECOMMENDED: Chin tuck, reduced bolus volume, avoid straws, seated upright at 90 degrees during PO intake, remain upright for 30-60 minutes post meal (GERD precaution), medications with applesauce prior to, during, and following administration. INTERPRETATION OF RESULTS: Patient presents with moderate oropharyngeal dysphagia (R13.12) likely secondary to a combination of human immunodeficiency virus (HIV) infection, chronic obstructive pulmonary disease, presbyphagia, and general deconditioning. Oral phase primarily marked by mild mastication inefficiency; and continued suboptimal lingual control resulting in premature bolus loss contributing to pre-prandial penetration and aspiration. Pharyngeal phase marked by mild to moderate delayed pharyngeal swallow onset timing contributing to prandial and pre-prandial penetration and aspiration; mild to moderate reduced closure of the airway during deglutition contributing to prandial penetration; improved pharyngeal motility. Inconsistent laryngeal vestibule pressure generated to expel penetrated material. Patient noted to SILENTLY aspirate with thin liquids, with clinical assessment at bedside relying on identification of classic overt signs and symptoms of aspiration unreliable. RECOMMENDATIONS: Would strongly discourage advancement past nectar thickened liquids without completion of a repeat modified barium swallow study due to the extent of aspirate identified that was SILENT in nature. Recommend a repeat modified barium swallow study within 4-6 weeks (if clinically appropriate) to further assess the presence and extent of silent and overt aspiration prior to advancement to thin liquids. Suspect high likelihood of non- compliance with dietary recommendations, with suspected current non-compliance with dietary recommendations (states he was cleared to advance from dietary restrictions, though it is highly unlikely that a clinician would advance an individual with significant silent aspiration without completion of an objective assessment via MBS or FEES). Would recommend significant caution in regards to removal of the Patients PEG tube, as the Patient remains at high risk of aspiration, with multiple medical complications complicating the efficiency of the immune system, with the Patient at higher likelihood to again require intake supplementation with prolonged re-hospitalization. Would consider implementation of the [place]rivast[place] Free Water Protocol (FFWP) following Patient and family education IF the Patient has the adequate level of supervision, though would suspect the Patient would experience difficulty with comprehension and adequate implementation. Patient requires intensive skilled speech- language intervention targeting continued diet texture management; training and implementation of recommended compensatory strategies; training, implementation, and Patient education regarding implementation of the FFWP (if placement is appropriate); Patient and caregiver training targeting meal preparation / thickened liquid preparation. ADDITIONAL COMMENTS/RECOMMENDATIONS: Results and recommendations were discussed with the Patient immediately following MBS completion, with the Patient verbalizing understanding and agreement with all recommendations and education provided. IMAGE COUNT: [id number] G-CODES: SWALLOWING G8996 Current Status: CK SWALLOWING G8997 Goal Status: CK SWALLOWING G8998 Discharge Status: CK 04/24/17 1446 <Electronically signed by Fabrice Newberry M.A., [facility]-ARCHIVIST ECONOMIC HISTORY> Date Fabrice Newberry M.A., Y-ARCHIVIST ECONOMIC HISTORY Electronically signed by Ronaldo Plata M.A., [facility]-ARCHIVIST ECONOMIC HISTORY on 06/11/17 11:25 Initialized on 06/11/17 11:24 - END OF NOTE Dysphagia Assessment - Swallowing Impairment Contributing Factors to Swallowing Impairment: Reduced Laryngeal Excursion - Impact Impact on Safety AND Functioning: Risk for Aspiration - Recommendations Modified Barium Swallow/Cookie Swallow Recommended: Yes - Diet Texture Recommendations Liquids: [place] Thick - Safety Saftey Precautions/Swallowing Recommendations (Check all that Apply): Upright Position at Least 30 Minutes After Meals, No Straw, Multiple Swallows - Compensatory Strategies Compensatory Strategies: Chin Tuck, Double Swallow Other Impressions - Comments Compliance -: Kathya has not been compliant with his liquid diet level recommendation. He was given extensive education on why to thicken liquids. He was given samples of thickener. Plan - Plan Plan: Repeat MBS before treatment is planned. Goals will be added as appropriate and necessasry. - Recommendations MBS: Yes - Prognosis Prognosis: Good - Goal #1-5 Goal #1: Goals pending MBS. Education - Patient has Indicated that the Following Identified Educational Needs: None The Patient has indicated that they have no educational or learning abilities that may effect their care.: Yes - Patient Instruction Patient Education: Diagnosis, Treatment Plan, Goals, Safety Precautions, Diet Level Person Taught: Patient Teaching Method: Discussion Response to teaching: Verbalize understanding <Electronically signed by Ronaldo Plata M.A., [facility]-ARCHIVIST ECONOMIC HISTORY> 06/11/17 1127 CC: Taz Johnson MD CHRISTEN Signed For Medicare only, by signing this I certify the plan of care. Physicians Signature Date CBC W/DIFF, AUTOMATED Collected: 06/02/2017 Status: F Source: [place] 3:58 PM [facility] REPOSITORY TYPE CODE TESTS RESULT OUT OF RANGE REFERENCE UNITS LAB L100.1000 4.4-11.0 K/mm3 Normal WBC 5.2 LAB L100.1200 4.6-6.2 M/mm3 Low RBC 3.50 LAB L100.1300 13.0-16.5 g/dl Low HGB 12.6 LAB L100.1400 40-54 % Low HCT 37.6 LAB L100.1500 80-94 fL High MCV 107.4 LAB L100.1600 27.0-32.0 pg High MCH 36.0 LAB L100.1700 32-36 g/gl Normal MCHC 33.5 LAB L100.1810 11.6-14.6 % High RDW CV 15.3 LAB L100.1820 35.1-43.9 fl High RDW SD 59.8 LAB L100.1900 150-450 K/mm3 Low PLT 113 LAB L100.2000 6.2-12.0 fl Normal MPV 9.7 LAB L100.2100 47-70 % High NEUT% 72.1 LAB L100.2200 19-41 % Normal LY% 19.0 LAB L100.2300 0-10 % Normal MONO% 6.4 LAB L100.2400 0-5 % Normal EO% 2.1 LAB L100.2500 0-1 % Normal BASO% 0.2 LAB L100.2550 0.0-0.9 % Normal IM GRAN % 0.200 Result Comment: IG% - Immature Granulocytes (promyelocytes, myelocytes and metamyelocytes) > 1% indicates that a LEFT SHIFT is Present. LAB L100.2620 2.0-7.7 X10 3/uL Normal Absolute Neut 3.7 LAB L100.2720 0.83-4.51 X10 3/ul Normal Absolute Lymph 0.98 Performed By: #### L100.0100 #### [facility] [address] [place], [address] COMPREHENSIVE METABOLIC Collected: 06/02/2017 Status: F Source: [place]IL 3:58 PM [facility] REPOSITORY Order Comment: Comments: [id number];T CELLS; LAV AND ACDA TYPE CODE TESTS RESULT OUT OF RANGE REFERENCE UNITS LAB L501.0100 74-106 mg/dL Normal GLU 83 Result Comment: Please note revised GLUCOSE reference range effective 2017. LAB L501.1000 7-18 mg/dL High BUN 19 LAB L501.1100 0.70-1.30 mg/dL Normal CREAT,SERUM 1.17 Result Comment: The validity of the calculated GFR AND GFRAA in patients over 70 years has not been determined. Clinical correlation is essential. LAB L501.1110 >60 mL/min Normal EST GFR 68 Result Comment: Non- GFR Calc LAB L501.1115 >60 mL/min Normal EST GFR - AA 82 Result Comment: GFR Calc LAB L501.1300 10-20 RATIO Normal BUN/CRE 16.2 LAB L501.1500 6.4-8.2 g/dL T Normal PROT 6.7 LAB L501.1800 3.2-5.0 g/dL Normal ALB 3.3 LAB L501.1950 2.2-4.2 g/dL Normal GLOB 3.4 LAB L501.2000 0.9-2.4 RATIO Normal A/G 1.0 LAB L501.2200 8.5-10.1 mg/dL CA Normal 8.8 LAB L501.4100 15-37 U/L Normal AST 19 LAB L501.4305 45-117 U/L Low ALK P 39 LAB L501.4405 16-61 U/L Normal ALT 24 Result Comment: Please note revised ALT reference range effective 2017. LAB L501.4600 0.20-1.00 mg/dL Normal T BILI 0.50 LAB L501.5300 136-145 mmol/L Normal NA 140 LAB L501.5600 3.5-5.1 mmol/L Normal K 4.0 LAB L501.5900 98-107 mmol/L Normal CL 107 LAB L501.6100 21.0-32.0 mmol/L Normal CO2 25.0 LAB L501.6200 5-15 Normal GAP 8 Performed By: #### L500.4050 #### [facility] [address] [place], [place], [id number] MISCELLANEOUS LAB Collected: 06/02/2017 Status: F Source: TASHA PROCEDURE 3:58 PM [facility] REPOSITORY Order Comment: Comments: [id number];T CELLS; LAV AND ACDA Test(s) Ordered: [id number];T CELLS; LAV AND ACDA TYPE CODE TESTS RESULT OUT OF RANGE REFERENCE UNITS LAB L801.1541 Normal [facility] LAB TEST Result Comment: TEST RESULT FLAG UNITS REF INTERVAL T-Cell Activation, CD8 Subsets Absolute CD 3 883 /uL 622 - 2402 % CD 3 Pos. Lymph. 73.6 % 57.5 - 86.2 Absolute CD 4 [place] 401 /uL 359 - 1519 % CD 4 Pos. Lymph. 33.4 % 30.8 - 58.5 Absolute CD 8 (Supp) 490 /uL 109 - 897 % CD 8 Pos. Lymph. 40.8 High % 12.0 - 35.5 CD4/CD8 Ratio 0.82 Low 0.92 - 3.72 Abs.CD8+HLA-DR+Lymph 232 High /uL 0 - 117 This test was developed and its performance characteristics determined by [facility]. It has not been cleared or approved by the Food and Drug Administration. % CD8+HLA-DR+ Lymphs 19.3 High % 0.0 - 4.9 This test was developed and its performance characteristics determined by [facility]. It has not been cleared or approved by the Food and Drug Administration. % CD3+CD25+ Lymphs 24.9 % 4.9 - 25.9 This test was developed and its performance characteristics determined by [facility]. It has not been cleared or approved by the Food and Drug Administration. Abs.CD3+CD25+ Lymphs 299 /uL 79 - 535 This test was developed and its performance characteristics determined by [facility]. It has not been cleared or approved by the Food and Drug Administration. % CD8+CD38+ Lymphs 14.9 % 0.0 - 17.7 This test was developed and its performance characteristics determined by [facility]. It has not been cleared or approved by the Food and Drug Administration. Abs.CD8+CD38+ Lymphs 179 /uL 0 - 381 This test was developed and its performance characteristics 0determined by [facility]. It has not been cleared or approved by the Food and Drug Administration. WBC 5.5 x10E3/uL 3.4 - 10.8 RBC 3.48 Low x10E6/uL 4.14 - 5.80 Hemoglobin 12.5 Low g/dL 13.0 - 17.7 Hematocrit 37.5 % 37.5 - 51.0 MCV 108 High fL 79 - 97 MCH 35.9 High pg 26.6 - 33.0 MCHC 33.3 g/dL 31.5 - 35.7 RDW 15.7 High % 12.3 - 15.4 Platelets 128 Low x10E3/uL 150 - 379 Neutrophils 70 % Not Estab. Lymphs 22 % Not Estab. Monocytes 5 % Not Estab. Eos 3 % Not Estab. Basos 0 % Not Estab. Neutrophils (Absolute) 3.8 x10E3/uL 1.4 - 7.0 Lymphs (Absolute) 1.2 x10E3/uL 0.7 - 3.1 Monocytes(Absolute) 0.3 x10E3/uL 0.1 - 0.9 Eos (Absolute) 0.2 x10E3/uL 0.0 - 0.4 Baso (Absolute) 0.0 x10E3/uL 0.0 - 0.2 Immature Granulocytes 0 % Not Estab. Immature Grans (Abs) 0.0 x10E3/uL 0.0 - 0.1 TESTING PERFORMED AT [facility]. ORIGINAL REPORT ON FILE IN LAB CONTAINS ADDITIONAL TEST SITE INFORMATION. Performed By: #### L801.1541 #### [facility] [address] [place], [address] HIV VIRAL LOAD Collected: 06/02/2017 Status: F Source: TASHA QUANT 3:58 PM [facility] REPOSITORY TYPE CODE TESTS RESULT OUT OF RANGE REFERENCE UNITS LAB L3890.4100 . copies/mL Normal HIV-1 < 20 RNA,QUANT Result Comment: HIV-1 RNA detected The reportable range for this assay is 20 to 10,000,000 copies HIV-1 RNA/mL. LAB L3890.4200 . Normal Test not log10 performed HIV-1 RNA Result Comment: Result Units: [id number]/mL Unable to calculate result since non-numeric result obtained for component test. Performed at: - [facility] [address] [id number] Packaging Design Engineer: Nathan Glass PhD, Phone: [phone] Performed By: #### L3890.4000 #### [facility] (refer to report for specific site) refer to report for address and phone number CBC W/DIFF, AUTOMATED Collected: 05/07/2017 Status: F Source: TASHA 10:45 AM [facility] REPOSITORY Order Comment: Reason for Laboratory Test ANEMIA TYPE CODE TESTS RESULT OUT OF RANGE REFERENCE UNITS LAB L100.1000 4.4-11.0 K/mm3 Normal WBC 5.2 LAB L100.1200 4.6-6.2 M/mm3 Low RBC 3.53 LAB L100.1300 13.0-16.5 g/dl Low HGB 12.6 LAB L100.1400 40-54 % Low HCT 37.7 LAB L100.1500 80-94 fL High MCV 106.8 LAB L100.1600 27.0-32.0 pg High MCH 35.7 LAB L100.1700 32-36 g/gl Normal MCHC 33.4 LAB L100.1810 11.6-14.6 % Normal RDW CV 13.9 LAB L100.1820 35.1-43.9 fl High RDW SD 53.9 LAB L100.1900 150-450 K/mm3 Normal PLT 196 LAB L100.2000 6.2-12.0 fl Normal MPV 9.0 LAB L100.2100 47-70 % Normal NEUT% 53.8 LAB L100.2200 19-41 % Normal LY% 30.6 LAB L100.2300 0-10 % High MONO% 10.4 LAB L100.2400 0-5 % Normal EO% 4.6 LAB L100.2500 0-1 % Normal BASO% 0.4 LAB L100.2550 0.0-0.9 % Normal IM GRAN % 0.200 Result Comment: IG% - Immature Granulocytes (promyelocytes, myelocytes and metamyelocytes) > 1% indicates that a LEFT SHIFT is Present. LAB L100.2620 2.0-7.7 X10 3/uL Normal Absolute Neut 2.8 LAB L100.2720 0.83-4.51 X10 3/ul Normal Absolute Lymph 1.58 Performed By: #### L100.0100 #### [facility] [address] [place], [address] ALLERGIES ALLERGIES DATE TYPE / CODE NAME / CODE REACTION SEVERITY SOURCE 05/07/2017 Drug cephalexin Swelling SV Tasha Allergy/416 monohydrate/G00630 Community 745013([email or web address] Repository 05/07/2017 Drug Penicillins/N63230 Unknown SV Tasha Allergy/416 0476(RXNORM) [facility] 291409[facility] Repository 12/02/2007 DRUG CEPHALEXIN SWELLING [facility] INGREDI/[address] 396419(SNOM Repository ED CT) 12/02/2007 Drug PENICILLINS [facility] Class/[address] 1003(SNOMED Repository CT) ENCOUNTERS ENCOUNTERS ADMIT/DISCHARGE ACCOUNT ADMITTING ENCOUNTER LOCATION SOURCE NUMBER CLASS 03/17/2018 [id number] [facility] ing:RAD Repository 03/03/2018 [id number] [facility] ing:LAB Repository 02/22/2018/02/26/[id number] Repository 12/30/2017/12/31/[id number] ing:PT Repository 11/24/2017/11/26/[id number] Repository 11/16/2017 [id number] [facility] ing:MRI Repository 11/05/2017/11/06/[id number] ing:SP Repository 10/28/2017 [id number] [facility] ing:LAB Repository 09/24/2017 [id number] [facility] ing:RAD Repository 09/21/2017 [id number] Ambulatory [facility] ing:MFPLAB Repository 08/10/2017 [id number] Ambulatory [facility] ing:RAD Repository 06/22/2017 [id number] Ambulatory [facility] ing:RAD Repository 06/11/2017/06/14/19 [id number] Ambulatory [address] Repository 06/02/2017 [id number] Ambulatory [facility] ing:MTLAB Repository 05/07/2017 [id number] Ambulatory [facility] ing:OMD Repository 05/07/2017 [id number] Ambulatory BMSBuilding:Oneal Cordova MS.[facility] Repository PAYERS PAYERS ENCOUNTER GUARANTOR PAYER SUBSCRIBER SOURCE 03/17/2018 KATHYA [id number] [facility] [address] *IN [facility] [id number] Number: Repository [id number]: 330 [id number] [phone] () Date:[id number] [address]LX: 03/17/2018 Secondary NOT GIVENUNK Tasha Insurance:SELF PAY [facility] Number: Effective Repository Date:2018-03-02 03/03/2018 KATHYA Levi Primary KATHYA [id number] [facility] Community [address] *IN [facility] [id number] Number: Repository [id number]: 330 [id number] [phone] () Date:[id number] [address]YQ: 03/03/2018 Secondary NOT GIVENUNK Tasha Insurance:SELF PAY [facility] Number: Effective Repository Date:2018-03-03 12/30/2017 KATHYA Levi Primary KATHYA [id number] [facility] Community [address] *IN [address] [place] Number: Repository [address]Blw: 330 [id number] [phone] (HP) Date:[id number] [address]SO: 12/30/2017 Secondary NOT GIVENUNK Tasha Insurance:SELF PAY [facility] Number: Effective Repository Date:2017-11-25 11/16/2017 KATHYA Levi Primary KATHYA [id number] [facility] [place]OD[place]URD[place]OB: Community [address] *IN [address] [place] Number: Repository [address]Lqh: 330 [id number] [phone] (HP) Date:7729-56-40YS[address] [address]MB: 11/16/2017 Secondary NOT GIVENUNK Tasha Insurance:SELF PAY [facility] Number: Effective Repository Date:2017-11-09 11/05/2017 Kathya Levi Primary Kathya Cordova [id number] Insurance:[facility] Community [address] *[place] [address] [place] Number: Repository [address]Ria: 330 [id number] [phone] (HP) Date:7869-28-31QS[address] [address]XB: 11/05/2017 Secondary NOT GIVENUNK [place] Insurance:SELF PAY [facility] Number: Effective Repository Date:2017-06-03 10/28/2017 Kathya Levi Primary Kathya Emmanuelward[address] [facility] [address] *[place] [address] [place] Number: Repository [address]Nic: 330 [id number] [phone] (HP) Date:0932-20-79BS[address] [address]ME: 10/28/2017 Secondary NOT GIVENUNK Tasha Insurance:SELF PAY [facility] Number: Effective Repository Date:2017-10-28 09/24/2017 Kathya Levi Primary Kathya Emmanuelward[address] Insurance:[facility] [place]wardDOB: Community [address] *IN [address] Number: Repository [address]Dgp: 330 [id number] [phone] () Date:[id number] [address]HB: 09/24/2017 Secondary NOT GIVENUNK Tasha Insurance:SELF PAY [facility] Number: Effective Repository Date:2017-09-24 09/21/2017 Kathya Levi Primary Kathya Emmanuelward[address] Insurance:[facility] [place]DOB: Community [address] *IN [address] Number: Repository [id number]: 330 [id number] [phone] () Date:9275-30-03RK[address] [address]RO: 09/21/2017 Secondary NOT GIVENUNK Tasha Insurance:SELF PAY [facility] Number: Effective Repository Date:2017-09-21 08/10/2017 Kathya Levi Primary Kathya Emmanuelward[address] Insurance:[facility] WoodwardDOB: Community [address] *IN [address] Number: Repository [address]Uui: 330 [id number] [phone] () Date:8590-35-67LY [address] [address]EX: 08/10/2017 Secondary NOT GIVENUNK Tasha Insurance:SELF PAY [facility] Number: Effective Repository Date:2017-08-06 06/22/2017 Kathya Levi Primary Kathya Emmanuelward[address] Insurance:[facility] WoodwardDOB: Community [address] *IN [address] [place] Number: Repository [address]Wro: 330 [id number] [phone] (HP) Date:5164-59-08BH [address] [address]SE: 06/22/2017 Secondary NOT GIVENUNK [place] Insurance:SELF PAY [facility] Number: Effective Repository Date:2017-06-16 06/02/2017 Kathya Levi Primary Kathya Cordova [id number] Insurance:[facility] [place] wayneDOB: Community [address] *IN [address] [place] Number: Repository [address]Zju: 330 [id number] [phone] (HP) Date:4003-45-83MH [address] [address]FC: 06/02/2017 Secondary NOT GIVENUNK [place] Insurance:SELF PAY [facility] Number: Effective Repository Date:2017-06-02 05/07/2017 Kathya Levi Primary Kathya Cordova [id number] Insurance:[facility] [place] wayneDOB: Community [address] *[place] [address] [place] Number: Repository [address]Ene: 330 [id number] [phone] (HP) Date:1140-46-75TL [address] [address]HY: 05/07/2017 Secondary NOT GIVENUNK Tasha Insurance:SELF PAY [facility] Number: Effective Repository Date:2017-01-26 05/07/2017 Kathya Levi Primary Kathya Emmanuelward[address] Insurance:[facility] [place] wayneDOB: Community [address] *[place] [address] [place] Number: Repository [address]Jyx: 330 [id number] [phone] (HP) Date:3928-05-43LV [address] [address]UQ: 05/07/2017 Secondary NOT GIVENUNK Tasha Insurance:SELF PAY [facility] Effective Repository Date:2017-05-07
== END ==
PROVIDERS: Family Provider Family Medicine; PCP Family Medicine; Referring Provider Family Medicine; Visit Provider Family Medicine
DX: R13.10 Dysphagia, unspecified (principal)
CPT/HCPCS: 74230; 92611; G8996; G8997; G8998

== ENCOUNTER → 2018-06-02 12:17 | Outpatient (CLI) | payer MEDICARE, SELFPAY ==
[2018-03-02 16:59] VITALS: BMI 20.9
--- NOTE | 2018-06-02 12:24 | RAD_ITS ---
STUDY: X-RAY - THORACIC SPINE REASON FOR EXAM: Male, 57 years old. BACK PAIN. TECHNIQUE: 3 view(s) of the thoracic spine were obtained. COMPARISON: 05/26/2014 FINDINGS: Normal kyphosis of the thoracic spine. There is no substantial scoliosis. There is multilevel endplate spondylosis of the thoracic vertebrae. There is multilevel disc space narrowing of the thoracic spine. There is mild compression at T4, new since the prior examination in 2014. The soft tissue structures are unremarkable. RAD/Thoracic Spine 3 Views IMPRESSION: T4 compression fracture, indeterminate age. Electronically Signed: Suzy Kelly MD at 9:45 EST Tel , Service support ,
== END ==
PROVIDERS: Family Provider Family Medicine; PCP Family Medicine; Referring Provider Anesthesiology Pain Medicine; Visit Provider Anesthesiology Pain Medicine
DX: M54.9 Dorsalgia, unspecified (principal)
CPT/HCPCS: 72072

== ENCOUNTER → 2018-06-14 08:09 | Outpatient (CLI) | payer MEDICARE, SELFPAY ==
[2018-03-02 16:59] VITALS: BMI 20.9
[2018-06-14 09:38] LABS: Absolute Lymphocyte Count 2.08 X10^3/ul (0.83-4.51); Absolute Neutrophil Count 3.5 X10^3/uL (2.0-7.7); Basophil# 0.03 X10^3/uL; Basophil% 0.5 % (0-1); Eosinophil# 0.27 X10^3/uL; Eosinophils% 4.3 % (0-5); Hematocrit 40.2 % (40-54); Hemoglobin 13.2 g/dl (13.0-16.5); Lymphocyte # 2.08 X10^3/ul (4.0); Lymphocyte % 33.1 % (19-41); Mean Corp Hgb Conc 32.8 g/gl (32-36); Mean Corpuscular Hgb 34.4 pg (27.0-32.0); Mean Corpuscular Volume 104.7 fL (80-94); Mean Platelet Vol. 10.1 fl (6.2-12.0); Monocyte# 0.44 X10^3/uL; Neutrophil # 3.45 X10^3/uL (2.7-7.7); Neutrophil % 54.8 % (47-70); Platelet Count 256 K/mm3 (150-450); RBC Distribution Width CV 14.2 % (11.6-14.6); Red Blood Count 3.84 M/mm3 (4.6-6.2); White Blood Count 6.3 K/mm3 (4.4-11.0)
[2018-06-14 09:39] LABS: POSITIVE COUNT NO; POSITIVE DIFFERENTIAL NO; POSITIVE MORPHOLOGY NO
[2018-06-14 10:09] LABS: ALB/GLOB Ratio 0.8 RATIO (0.9-2.4); AST(SGOT) 28 U/L (15-37); Alanine Aminotransfer ALT/SGPT 21 U/L (16-61); Albumin, Serum 3.2 g/dL (3.2-5.0); Alkaline Phosphatase 72 U/L (45-117); Anion Gap 4 (5-15); BUN 16 mg/dL (7-18); BUN/Creat Ratio 13.2 RATIO (10-20); Calcium,Total 8.9 mg/dL (8.5-10.1); Chloride 112 mmol/L (98-107); Cholesterol 227 mg/dL (200); Creatinine, Serum 1.21 mg/dL (0.70-1.30); EST Glomerular Filtration Rate 65 mL/min (>60); Est Glom Filt Rate - Afr Amer 79 mL/min (>60); Globulin 3.8 g/dL (2.2-4.2); Glucose 82 mg/dL (74-106); High Density Lipoprotein 25 mg/dL; Potassium 3.6 mmol/L (3.5-5.1); Sodium Level 138 mmol/L (136-145); Triglycerides 329 mg/dL; Very Low Density Lipoprotein 66 mg/dL (5-40)
[2018-06-15 14:07] LABS: Absolute CD4 Helper 811 /uL (359-1519); Basophils (Absolute) 0 x10E3/uL (0.0-0.2); CD4/CD8 Ratio 0.89 (0.92-3.72); Eosinophils 4 % (Not Estab.); Eosinophils (Absolute) 0.2 x10E3/uL (0.0-0.4); Hematocrit 39.2 % (37.5-51.0); Hemoglobin 12.8 g/dL (13.0-17.7); Immature Granulocytes 0 % (Not Estab.); Lymphs 33 % (Not Estab.); Lymphs (Absolute) 2.1 x10E3/uL (0.7-3.1); MCH 34.1 pg (26.6-33.0); MCHC 32.7 g/dL (31.5-35.7); MCV 105 fL (79-97); Monocytes 9 % (Not Estab.); Monocytes (Absolute) 0.6 x10E3/uL (0.1-0.9); Neutrophils 54 % (Not Estab.); Neutrophils (Absolute) 3.5 x10E3/uL (1.4-7.0); Percent % CD4 Pos. Lymph. 38.6 % (30.8-58.5); Percent % CD8 Pos. Lymph. 43.2 % (12.0-35.5); Platelets 245 x10E3/uL (150-379); RBC Count 3.75 x10E6/uL (4.14-5.80); RDW 14.9 % (12.3-15.4); WBC Count 6.4 x10E3/uL (3.4-10.8)
[2018-06-15 14:54] LABS: Immature Granulocytes Absolute 0 x10E3/uL (0.0-0.1)
[2018-06-16 14:16] LABS: HIV-1 RNA by PCR, Quant. 50 copies/mL (.); LOG10 HIV-1 RNA 1.699 (.)
== END ==
PROVIDERS: Family Provider Family Medicine; PCP Family Medicine; Referring Provider Internal Medicine Infectious Disease; Visit Provider Internal Medicine Infectious Disease
DX: B20 Human immunodeficiency virus [HIV] disease (principal); E78.5 Hyperlipidemia, unspecified
CPT/HCPCS: 36415; 80053; 80061; 85025; 86360; 87536

== ENCOUNTER → 2018-07-28 | Outpatient (CLI) | payer MEDICARE, SELFPAY ==
[2018-06-15 08:42] VITALS: BMI 20.9
[2018-07-28 12:32] LABS: Amphetamine Urine VISTA NEGATIVE (<1000 ng/mL); Barbiturate Urine VISTA NEGATIVE (< 200 ng/mL); Benzodiazepine Urine VISTA NEGATIVE (< 200 ng/mL); Cocaine Urine VISTA NEGATIVE (< 300 ng/mL); Ecstacy Urine VISTA NEGATIVE (< 500 ng/mL); Methadone Urine VISTA NEGATIVE (< 300 ng/mL); PCP Urine VISTA NEGATIVE (< 25 ng/mL); THC Urine VISTA NEGATIVE (< 50 ng/mL); Vista UDS pH Range 6
== END | disposition home or self-care (01) ==
LOC: LAB 11:04
PROVIDERS: Family Provider Family Medicine; PCP Family Medicine; Referring Provider Anesthesiology Pain Medicine; Visit Provider Anesthesiology Pain Medicine
DX: F11.20 Opioid dependence, uncomplicated (principal)
CPT/HCPCS: 80307

== ENCOUNTER → 2018-08-03 | Outpatient (CLI) | payer MEDICARE, SELFPAY ==
[2018-06-15 08:42] VITALS: BMI 20.9
[2018-08-03 12:37] LABS: Hematocrit 34.3 % (40-54); Hemoglobin 11.3 g/dl (13.0-16.5); Mean Corp Hgb Conc 32.9 g/gl (32-36); Mean Corpuscular Hgb 35.1 pg (27.0-32.0); Mean Corpuscular Volume 106.5 fL (80-94); Mean Platelet Vol. 9.7 fl (6.2-12.0); Platelet Count 174 K/mm3 (150-450); RBC Distribution Width CV 14.1 % (11.6-14.6); RBC Distribution Width SD 53.2 fl (35.1-43.9); Red Blood Count 3.22 M/mm3 (4.6-6.2); White Blood Count 5.4 K/mm3 (4.4-11.0)
[2018-08-03 12:43] LABS: Scan Indicated on CBC? Y/N NO
[2018-08-03 13:25] LABS: AST(SGOT) 14 U/L (15-37); Alanine Aminotransfer ALT/SGPT 21 U/L (16-61); Albumin, Serum 3.1 g/dL (3.2-5.0); Alkaline Phosphatase 51 U/L (45-117); Anion Gap 4 (5-15); BUN 22 mg/dL (7-18); Calcium,Total 8.4 mg/dL (8.5-10.1); Chloride 112 mmol/L (98-107); EST Glomerular Filtration Rate 81 mL/min (>60); Est Glom Filt Rate - Afr Amer 98 mL/min (>60); Glucose 83 mg/dL (74-106); Potassium 3.8 mmol/L (3.5-5.1); Protein, Total 6.1 g/dL (6.4-8.2); Sodium Level 139 mmol/L (136-145); Thyroid Stim Hormone (TSH) 2.51 uIU/mL (0.358-3.74)
== END | disposition home or self-care (01) ==
PROVIDERS: Family Provider Family Medicine; PCP Family Medicine; Referring Provider Family Medicine; Visit Provider Family Medicine
DX: B20 Human immunodeficiency virus [HIV] disease (principal); E03.9 Hypothyroidism, unspecified
CPT/HCPCS: 36415; 80053; 84443; 85027

== ENCOUNTER → 2018-09-20 | Outpatient (CLI) | payer MEDICARE, SELFPAY ==
[2018-06-15 08:42] VITALS: BMI 20.9
--- NOTE | 2018-09-20 10:43 | RAD_ITS ---
STUDY: X-RAY - ABDOMEN/PELVIS REASON FOR EXAM: Male, 58 years old. Bloating TECHNIQUE: AP supine and upright views of the abdomen and pelvis. COMPARISON: None. FINDINGS: Normal visualized lung bases. There is a moderate amount of colonic fecal material. There is no demonstrated free abdominal air. The visualized liver, spleen and kidneys are grossly normal in size and morphology. Normal soft tissue structures. Normal visualized osseous structures. RAD/Abd Inc Decub and/or Erect IMPRESSION: Fecal retention within the colon Electronically Signed: Leland Rodney DO at 12:14 EDT Tel , Service support ,
[2018-09-20 13:05] LABS: Vitamin D,25 Hydroxy 36.9 ng/mL (29.95-100.01)
== END | disposition home or self-care (01) ==
LOC: MTLAB 10:41
PROVIDERS: Family Provider Family Medicine; PCP Family Medicine; Referring Provider Family Medicine; Visit Provider Family Medicine
DX: R14.0 Abdominal distension (gaseous) (principal); E55.9 Vitamin D deficiency, unspecified
CPT/HCPCS: 36415; 74019; 82306

== ENCOUNTER → 2018-10-21 | Outpatient (CLI) | payer MEDICARE, SELFPAY ==
[2018-06-15 08:42] VITALS: BMI 20.9
[2018-10-21 09:28] LABS: Absolute Lymphocyte Count 1.76 X10^3/uL (0.83-4.51); Absolute Neutrophil Count 3.4 X10^3/uL (2.0-7.7); Basophil# 0.03 X10^3/uL; Basophil% 0.5 % (0-1); Eosinophil# 0.22 X10^3/uL; Eosinophils% 3.6 % (0-5); Hematocrit 29.3 % (40-54); Hemoglobin 8.7 g/dL (13.0-16.5); Lymphocyte # 1.76 X10^3/ul (4.0); Lymphocyte % 29.1 % (19-41); Mean Corp Hgb Conc 29.7 g/dL (32-36); Mean Corpuscular Hgb 26.7 pg (27.0-32.0); Mean Corpuscular Volume 89.9 fL (80-94); Mean Platelet Vol. 10.8 fl (6.2-12.0); Monocyte# 0.65 X10^3/uL; Monocyte% 10.8 % (0-10); NRBC Flagged by Analyzer 0 % (0-5); Neutrophil # 3.36 X10^3/uL (2.7-7.7); Neutrophil % 55.7 % (47-70); Platelet Count 289 K/mm3 (150-450); RBC Distribution Width CV 16.5 % (11.6-14.6); RBC Distribution Width SD 54.2 fl (35.1-43.9); Red Blood Count 3.26 M/mm3 (4.6-6.2)
[2018-10-21 09:48] LABS: ALB/GLOB Ratio 0.8 RATIO (0.9-2.4); AST(SGOT) 16 U/L (15-37); Alanine Aminotransfer ALT/SGPT 22 U/L (16-61); Albumin, Serum 3.2 g/dL (3.2-5.0); Alkaline Phosphatase 68 U/L (45-117); Anion Gap 8 (5-15); BUN 20 mg/dL (7-18); Calcium,Total 9.2 mg/dL (8.5-10.1); Chloride 108 mmol/L (98-107); Cholesterol 177 mg/dL (200); Creatinine, Serum 0.95 mg/dL (0.70-1.30); EST Glomerular Filtration Rate 86 mL/min (>60); Est Glom Filt Rate - Afr Amer 104 mL/min (>60); Globulin 3.9 g/dL (2.2-4.2); Glucose 82 mg/dL (74-106); High Density Lipoprotein 36 mg/dL; Potassium 4.2 mmol/L (3.5-5.1); Protein, Total 7.1 g/dL (6.4-8.2); Sodium Level 141 mmol/L (136-145); Triglycerides 121 mg/dL; Very Low Density Lipoprotein 24 mg/dL (5-40)
[2018-10-24 17:03] LABS: HIV-1 RNA by PCR, Quant. 40 copies/mL (.); LOG10 HIV-1 RNA 1.602 (.)
== END | disposition home or self-care (01) ==
PROVIDERS: Family Provider Family Medicine; PCP Family Medicine; Referring Provider Internal Medicine Infectious Disease; Visit Provider Internal Medicine Infectious Disease
DX: B20 Human immunodeficiency virus [HIV] disease (principal); E78.5 Hyperlipidemia, unspecified
CPT/HCPCS: 36415; 80053; 80061; 85025; 87536

== ENCOUNTER → 2018-11-10 | Outpatient (CLI) | payer MEDICARE, SELFPAY ==
[2018-06-15 08:42] VITALS: BMI 20.9
[2018-11-10 17:45] LABS: Absolute Lymphocyte Count 2.59 X10^3/uL (0.83-4.51); Absolute Neutrophil Count 3.7 X10^3/uL (2.0-7.7); Basophil# 0.02 X10^3/uL; Basophil% 0.3 % (0-1); Eosinophil# 0.22 X10^3/uL; Hematocrit 30.2 % (40-54); Lymphocyte # 2.59 X10^3/ul (4.0); Lymphocyte % 35.1 % (19-41); Mean Corp Hgb Conc 29.8 g/dL (32-36); Mean Corpuscular Hgb 25.8 pg (27.0-32.0); Mean Corpuscular Volume 86.5 fL (80-94); Mean Platelet Vol. 10.4 fl (6.2-12.0); Monocyte# 0.77 X10^3/uL; Monocyte% 10.4 % (0-10); NRBC Flagged by Analyzer 0 % (0-5); Neutrophil # 3.74 X10^3/uL (2.7-7.7); Neutrophil % 50.7 % (47-70); POSITIVE MORPHOLOGY YES; Platelet Count 278 K/mm3 (150-450); RBC Distribution Width CV 17.3 % (11.6-14.6); RBC Distribution Width SD 54.7 fl (35.1-43.9); RET-HE 24.6 pg (30-35); Red Blood Count 3.49 M/mm3 (4.6-6.2); Reticulocyte Count 2.76 % (0.5-1.5); White Blood Count 7.4 K/mm3 (4.4-11.0)
[2018-11-10 17:47] LABS: Differential Indicated SCAN CRITERIA MET
[2018-11-10 17:56] LABS: Ferritin 10 ng/mL (26-388); Iron 20 ug/dL (65-175); Iron Binding Capacity,Total 379 ug/dL (250-450)
[2018-11-10 18:27] LABS: Differential Comment SCANNED; Platelet Estimate ADEQUATE (ADEQ)
[2018-11-10 18:28] LABS: Anisocytosis 2+; Hypochromasia 1+; Schistocytes RARE; Target Cells RARE
== END | disposition home or self-care (01) ==
LOC: MFPLAB 16:25
PROVIDERS: Family Provider Family Medicine; PCP Family Medicine; Referring Provider Family Medicine; Visit Provider Family Medicine
DX: D64.9 Anemia, unspecified (principal)
CPT/HCPCS: 36415; 82728; 83540; 83550; 85025; 85045

== ENCOUNTER 2019-01-13 13:00 | Outpatient (RCR) | payer MEDICARE, SELFPAY ==
[2018-06-15 08:42] VITALS: BMI 20.9
--- NOTE | 2018-12-01 15:23 | HP.PTEVAL_ITS ---
Patient's Visit Information KATHYA YORK is a 58 year old M referred to Physical Therapy by Issa Snow MD with a diagnosis of T/S pain and LE weakness. Date of Evaluation: 12/01/18 Physical Therapist: Fredo Marcelo PT, ATC - Visit Plan Frequency: 2-3x /Week Duration: 4-6 Weeks Plan: Core stab ex's, scap stab ex's, B LE strengthening, balance and proprio, nustep, and HEP - Subjective Findings: Pt reports his greatest complaints this date is pain between his shoulder blades and LE weakness. Pt reports he had to go to a care home for 2 months about 2 years ago because he found out he had a blood disorder which would not let him absorb any nutrients which ultimately resulted in him becoming weak and not being able to walk. Pt reports he is doing much better now. Pt is no longer using a cane for an AD. Pt reports he still gets very tired with walking. Pt reports he has good sensation in his feet. 3-4/10 pain in his mid T/S. No sleep difficulty at this time. - Pain mid T/S Pain Intensity (Out of 10): 3 Pain Intensity Range: 4 - Objective Neuro: B LE sensation is WNL to light touch. B bicepital reflex 3/3. MMT: B LE's are grossly 4-/5 throughout. Gait: Pt is able to ambulate 1200' I until needing to sit down due to fatigue. ROM: B LE's are WNL to light touch - Goals Goal 1:: Increase B LE strength x 1 grade to aid with stair negotiation Goal Time Frame: 4-6 Weeks Goal 2:: Pt will be able to ambulate greater than 2000' I to aid with community ambulation. Goal Time Frame: 4-6 Weeks Goal 3:: Increase B UE strength x 1 grade to aid with IADL's Goal Time Frame: 4-6 Weeks Goal 4:: I with HEP Goal Time Frame: 4-6 Weeks - Rehabilitation Potential Physical Therapy Diagnosis: Pt is debilitated, has LE weakness, and difficulty with prolonged ambulation secondary to a chronic illness Rehabilitation Potential: Good - Anticipated Interventions Patient/Client Instruction: Educate patient on: Condition, Plan of Care For the Purpose of:: To improve self management Therapeutic Exercise to Include: Strength training, Endurance training, Balance training, Body mechanics, Postural training, Dynamic Lumbar Stabilization, Josh Exercises, Scapular Strength/Stabilization For the Purpose of:: To decrease pain, To increase ROM, To improve muscle performance and motor function Thank you for the opportunity to evaluate your patient. For Medicare and Medicare HMO plans, please review the plan of care and approve it. It will need to be FAXED BACK to us at [phone] for Medicare purposes. For Medicare only, by signing this I certify the plan of care. Please let me know if there are questions or concerns regarding this plan of care. Physician Signature: Date:
--- NOTE | 2019-03-16 08:17 | HP.PT.NRP ---
HP - Discharge Summary (1) - Patient Information KATHYA YORK was seen in my office for initial evaluation on 12/01/18. The following Plan of Care was established for this patient: Initial Frequency: 2-3x /Week Initial Duration: 4-6 Weeks - Anticipated Interventions Patient/Client Instruction: Educate patient on: Condition, Plan of Care For the Purpose of:: To improve self management Therapeutic Exercise to Include: Strength training, Endurance training, Balance training, Body mechanics, Postural training, Dynamic Lumbar Stabilization, Josh Exercises, Scapular Strength/Stabilization For the Purpose of:: To decrease pain, To increase ROM, To improve muscle performance and motor function This patient was last seen in our office . Pertinent comments regarding their Physical therapy will appear below: Pt was treated for 8 PT visits for T/S pain through the date of 01/13/19. Pt has not returned through todays date and is therefore discontinued at this time. At this point I will be discontinuing this patient from physical therapy. I would be happy to see this patient again in the future if found appropriate by the physician. Thank you! Fredo Marcelo, PT, ATC
== END 2019-01-13 19:00 | disposition home or self-care (01) ==
LOC: PT 13:00
PROVIDERS: Family Provider Family Medicine; PCP Family Medicine; Referring Provider Anesthesiology Pain Medicine; Visit Provider Anesthesiology Pain Medicine
DX: M54.9 Dorsalgia, unspecified (principal); R29.898 Other symptoms and signs involving the musculoskeletal system
CPT/HCPCS: 97110; 97161

== ENCOUNTER → 2019-03-08 10:19 | Outpatient (CLI) | payer MEDICARE, SELFPAY ==
[2018-06-15 08:42] VITALS: BMI 20.9
[2019-03-08 13:51] LABS: Absolute Lymphocyte Count 2.01 X10^3/uL (0.83-4.51); Absolute Neutrophil Count 4.6 X10^3/uL (2.0-7.7); Basophil# 0.04 X10^3/uL; Basophil% 0.5 % (0-1); Eosinophils% 2.7 % (0-5); Hematocrit 45.1 % (40-54); Hemoglobin 15.1 g/dL (13.0-16.5); Lymphocyte # 2.01 X10^3/ul (4.0); Lymphocyte % 27.1 % (19-41); Mean Corp Hgb Conc 33.5 g/dL (32-36); Mean Corpuscular Hgb 31.9 pg (27.0-32.0); Mean Corpuscular Volume 95.1 fL (80-94); Mean Platelet Vol. 10.2 fl (6.2-12.0); Monocyte# 0.56 X10^3/uL; Monocyte% 7.5 % (0-10); NRBC Flagged by Analyzer 0 % (0-5); Neutrophil # 4.59 X10^3/uL (2.7-7.7); Neutrophil % 61.9 % (47-70); Platelet Count 161 K/mm3 (150-450); RBC Distribution Width CV 15.5 % (11.6-14.6); RBC Distribution Width SD 53.9 fl (35.1-43.9); Red Blood Count 4.74 M/mm3 (4.6-6.2); White Blood Count 7.4 K/mm3 (4.4-11.0)
[2019-03-08 14:10] LABS: ALB/GLOB Ratio 0.9 RATIO (0.9-2.4); AST(SGOT) 16 U/L (15-37); Alanine Aminotransfer ALT/SGPT 19 U/L (16-61); Albumin, Serum 3.5 g/dL (3.2-5.0); Alkaline Phosphatase 61 U/L (45-117); Anion Gap 6 (5-15); BUN 20 mg/dL (7-18); BUN/Creat Ratio 17.5 RATIO (10-20); Calcium,Total 9.5 mg/dL (8.5-10.1); Chloride 106 mmol/L (98-107); Creatinine, Serum 1.14 mg/dL (0.70-1.30); EST Glomerular Filtration Rate 70 mL/min (>60); Est Glom Filt Rate - Afr Amer 84 mL/min (>60); Globulin 3.9 g/dL (2.2-4.2); Glucose 90 mg/dL (74-106); Potassium 4.1 mmol/L (3.5-5.1); Protein, Total 7.4 g/dL (6.4-8.2); Sodium Level 139 mmol/L (136-145)
[2019-03-08 14:12] LABS: Vitamin D,25 Hydroxy 30.4 ng/mL (29.95-100.01)
[2019-03-11 11:19] LABS: HIV-1 RNA by PCR, Quant. 230 copies/mL (.); LOG10 HIV-1 RNA 2.362 (.)
== END ==
PROVIDERS: Family Provider Family Medicine; PCP Family Medicine; Visit Provider Family Medicine
DX: B20 Human immunodeficiency virus [HIV] disease (principal); E55.9 Vitamin D deficiency, unspecified
CPT/HCPCS: 36415; 80053; 82306; 85025; 87536

== ENCOUNTER → 2019-03-15 10:16 | Outpatient (CLI) | payer MEDICARE, SELFPAY ==
[2018-06-15 08:42] VITALS: BMI 20.9
--- NOTE | 2019-03-15 10:20 | RAD_ITS ---
STUDY: X-RAY - LEFT FOOT CLINICAL: Male, 58 years old. Cellulitis of the fifth toe TECHNIQUE: 3 view(s) of the foot. COMPARISON: None. FINDINGS: Normal talus, calcaneus, and tarsal bones. Normal visualized subtalar, talonavicular, calcaneocuboid, tarsal and tarsometatarsal articulations. There is diffuse osteopenia. There is degenerative arthrosis of the metatarsophalangeal joint of the hallux . Normal tibial and fibular sesamoid bones. Normal interphalangeal joint of the great toe. Normal phalanges of the great toe. Normal second through fifth metatarsophalangeal joints. Normal interphalangeal joints and phalanges of the lesser toes. There is soft tissue swelling over the lateral foot extending to the fifth toe. RAD/Foot min 3 Views IMPRESSION: Septal and lateral foot soft tissue swelling without destructive bony process. Electronically Signed: Calixto Laboy MD (Brooks) at 17:23 EST , Service support ,
[2019-03-15 12:30] LABS: Erythrocyte Sedimentation Rate 26 mm/hr (0-20)
[2019-03-15 12:32] LABS: Absolute Lymphocyte Count 2.76 X10^3/uL (0.83-4.51); Absolute Neutrophil Count 5.6 X10^3/uL (2.0-7.7); Basophil# 0.05 X10^3/uL; Basophil% 0.5 % (0-1); Eosinophil# 0.24 X10^3/uL; Eosinophils% 2.5 % (0-5); Hematocrit 44.8 % (40-54); Hemoglobin 15.2 g/dL (13.0-16.5); Lymphocyte # 2.76 X10^3/ul (4.0); Lymphocyte % 29.3 % (19-41); Mean Corp Hgb Conc 33.9 g/dL (32-36); Mean Corpuscular Hgb 31.9 pg (27.0-32.0); Mean Corpuscular Volume 94.1 fL (80-94); Mean Platelet Vol. 9.9 fl (6.2-12.0); Monocyte# 0.76 X10^3/uL; Monocyte% 8.1 % (0-10); NRBC Flagged by Analyzer 0 % (0-5); Neutrophil % 59.4 % (47-70); Platelet Count 180 K/mm3 (150-450); RBC Distribution Width CV 14.8 % (11.6-14.6); RBC Distribution Width SD 51.8 fl (35.1-43.9); Red Blood Count 4.76 M/mm3 (4.6-6.2); White Blood Count 9.4 K/mm3 (4.4-11.0)
[2019-03-15 12:43] LABS: Vitamin D,25 Hydroxy 33.6 ng/mL (29.95-100.01)
[2019-03-15 13:10] LABS: CRP 4.03 mg/L (0.0-3.0); Thyroid Stim Hormone (TSH) 2.29 uIU/mL (0.358-3.74)
== END ==
PROVIDERS: Family Provider Family Medicine; PCP Family Medicine; Referring Provider Family Medicine; Visit Provider Family Medicine
DX: L03.032 Cellulitis of left toe (principal); E03.9 Hypothyroidism, unspecified; E55.9 Vitamin D deficiency, unspecified
CPT/HCPCS: 36415; 73630; 82306; 84443; 85025; 85652; 86140

== ENCOUNTER → 2019-03-17 | Outpatient (CLI) | payer MEDICARE, SELFPAY ==
[2018-06-15 08:42] VITALS: BMI 20.9
== END | disposition home or self-care (01) ==
PROVIDERS: Family Provider Family Medicine; PCP Family Medicine; Referring Provider Podiatrist; Visit Provider Podiatrist
DX: L03.116 Cellulitis of left lower limb (principal)
CPT/HCPCS: 87070; 87075; 87077; 87186; 87205

== ENCOUNTER → 2019-03-29 08:41 | Outpatient (CLI) | payer MEDICARE, SELFPAY ==
[2018-06-15 08:42] VITALS: BMI 20.9
--- NOTE | 2019-03-29 08:43 | ART_ITS ---
Reason For Study: PVD Procedure A bilateral lower extremity continuous wave Doppler with analog waveform analysis,segmental pressures,and ankle brachial indexes without exercise. Left Segmental Pressures Left brachial= 122mmHg. Left thigh = 115mmHg. Left calf = 93mmHg. Left posterior tibial artery = 84mmHg. Left dorsalis pedis artery = 75mmHg. Left digit = 80 mmHg. The left dorsalis pedis waveforms are monophasic. The left posterior tibial artery waveforms are biphasic. Right Segmental Pressures Right brachial= 125mmHg. Right posterior tibial artery = 130mmHg. Right dorsalis pedis artery = 123mmHg. Right digit = 93 mmHg. The right dorsalis pedis waveforms are biphasic. The right posterior tibial artery waveforms are triphasic. Indices The right ankle brachial index by the dorsalis pedis is 0.98. The right ankle brachial index by the posterior tibial artery is 1.04. The right digital-brachial index is 0.74. The left ankle brachial index by the dorsalis pedis is 0.60. The left ankle brachial index by the posterior tibial artery is 0.67. The left digital-brachial index is 0.64. Interpretation Summary Minimal occlusive disease right lower extremity with slightly diminished dorsalis pedis ankle brachial index and waveform but normal posterior tibialis index and waveform at rest. Moderately severe left lower extremity arterial occlusive disease. Likely femoral-popliteal in location Abnormal index and waveform involving the left tibialis anterior/dorsalis pedis. Ordering Physician: Keyur Carson Referring Physician: Solomon Johnson Performed By: Magdaleen Garnett RVT
== END ==
PROVIDERS: Family Provider Family Medicine; PCP Family Medicine; Referring Provider Podiatrist; Visit Provider Podiatrist
DX: I73.9 Peripheral vascular disease, unspecified (principal)
CPT/HCPCS: 93923

== ENCOUNTER → 2019-05-09 09:09 | Outpatient (CLI) | payer MEDICARE, MEDICAID, SELFPAY ==
[2018-06-15 08:42] VITALS: BMI 20.9
--- NOTE | 2019-05-09 09:14 | RAD_ITS ---
STUDY: X-RAY - UNILATERAL RIBS ( RIGHT ) REASON FOR EXAM: Male, 58 years old. Right anterior lateral rib pain. Fell on ice. TECHNIQUE: 5 view(s) of the ribs. COMPARISON: No prior rib series for comparison. PA and lateral chest radiographs 01/12/2027 FINDINGS: Old fracture deformity of the right posterior eighth rib is unchanged. Old fracture of the left posterior ninth rib is unchanged. No suspicious acute rib fractures. Decreased size of left upper lobe infiltrate. Suspicious 3.8 x 2.4 cm pulmonary nodule in the left upper lobe. Mild pulmonary hyperinflation with flattening of the hemidiaphragms. RAD/Ribs Uni Min 3V w/PA Chest IMPRESSION: 1. Old fractures of the right posterior eighth rib and left posterior ninth rib are unchanged. 2. No suspicious acute rib fractures. 3. 3.8 x 2.4 cm pulmonary nodule in the left upper lobe is worrisome for neoplasm. This was a previous site of pneumonia which has decreased in size when compared to 01/02/2017. RECOMMENDATION: CT chest for further evaluation suspicious pulmonary nodule. Electronically Signed: Saul Lr MD at 15:33 EST , Service support ,
== END ==
PROVIDERS: PCP Family Medicine; Referring Provider Anesthesiology Pain Medicine; Visit Provider Anesthesiology Pain Medicine
DX: R91.1 Solitary pulmonary nodule (principal); Z87.01 Personal history of pneumonia (recurrent); W00.0XXA Fall on same level due to ice and snow, initial encounter
CPT/HCPCS: 71101

== ENCOUNTER → 2019-05-31 17:14 | Outpatient (CLI) | payer MEDICARE, MEDICAID, SELFPAY ==
[2018-06-15 08:42] VITALS: BMI 20.9
--- NOTE | 2019-05-31 17:27 | CT_ITS ---
HISTORY: WHIT NODULE FOLLOW UP TECHNIQUE: CT images of the chest were obtained with 100 mL Isovue-300 IV contrast. Number of images including paperwork: [phone]. A radiation dose optimization technique was used for this scan. COMPARISON: CT chest 12/01/2016. Right rib series 05/09/2019 FINDINGS: VASCULATURE: Vascular tortuosity. Aortic calcification. HEART/PERICARDIUM: Normal heart size. Coronary calcification. MEDIASTINUM: Unremarkable. ADENOPATHY: Borderline left hilar adenopathy. THYROID: Unremarkable visualized portions. LUNG PARENCHYMA: 2.2 cm left upper lobe nodule, grossly unchanged compared to 05/09/2019. Linear bilateral opacities consistent with scarring. Mild bilateral apical scarring. Moderate emphysema. Hyperinflation. PLEURAL SPACES: Unremarkable. UPPER ABDOMEN: Unremarkable. OSSEOUS AND SOFT TISSUE STRUCTURES: No acute skeletal findings. DEVICES: None. CT/Chest WITH Contrast IMPRESSION: No definite acute findings. Left upper lobe nodule appears unchanged to slightly smaller compared to previous rib series 05/09/2019. Emphysema. Individualized dose optimization techniques were used for this CT. at 0743 Reported and signed by: Riddhi Ingram MD Electronically Signed: Riddhi Ingram MD at 7:42 EST Tel , Service support ,
== END ==
PROVIDERS: PCP Family Medicine; Referring Provider Family Medicine; Visit Provider Family Medicine
DX: R91.1 Solitary pulmonary nodule (principal)
CPT/HCPCS: 71260; Q9967

== ENCOUNTER → 2019-07-13 08:25 | Outpatient (CLI) | payer MEDICARE, MEDICAID, SELFPAY ==
[2018-06-15 08:42] VITALS: BMI 20.9
[2019-07-13 10:07] LABS: Absolute Lymphocyte Count 2.55 X10^3/uL (0.83-4.51); Absolute Neutrophil Count 5.1 X10^3/uL (2.0-7.7); Basophil# 0.05 X10^3/uL; Basophil% 0.6 % (0-1); Eosinophil# 0.31 X10^3/uL; Eosinophils% 3.5 % (0-5); Hematocrit 44.4 % (40-54); Hemoglobin 14.9 g/dL (13.0-16.5); Lymphocyte # 2.55 X10^3/ul (4.0); Lymphocyte % 29.1 % (19-41); Mean Corp Hgb Conc 33.6 g/dL (32-36); Mean Corpuscular Volume 98.4 fL (80-94); Mean Platelet Vol. 10.4 fl (6.2-12.0); Monocyte# 0.73 X10^3/uL; Monocyte% 8.3 % (0-10); NRBC Flagged by Analyzer 0 % (0-5); Neutrophil # 5.11 X10^3/uL (2.7-7.7); Neutrophil % 58.3 % (47-70); Platelet Count 167 K/mm3 (150-450); RBC Distribution Width CV 13.2 % (11.6-14.6); Red Blood Count 4.51 M/mm3 (4.6-6.2); White Blood Count 8.8 K/mm3 (4.4-11.0)
[2019-07-13 10:24] LABS: ALB/GLOB Ratio 0.9 RATIO (0.9-2.4); AST(SGOT) 21 U/L (15-37); Alanine Aminotransfer ALT/SGPT 23 U/L (16-61); Albumin, Serum 3.6 g/dL (3.2-5.0); Alkaline Phosphatase 68 U/L (45-117); Anion Gap 4 (5-15); BUN 24 mg/dL (7-18); BUN/Creat Ratio 20.3 RATIO (10-20); Calcium,Total 9.3 mg/dL (8.5-10.1); Chloride 107 mmol/L (98-107); Cholesterol 217 mg/dL (200); Creatinine, Serum 1.18 mg/dL (0.70-1.30); EST Glomerular Filtration Rate 67 mL/min (>60); Est Glom Filt Rate - Afr Amer 81 mL/min (>60); Globulin 3.9 g/dL (2.2-4.2); Glucose 89 mg/dL (74-106); High Density Lipoprotein 26 mg/dL; Potassium 3.9 mmol/L (3.5-5.1); Protein, Total 7.5 g/dL (6.4-8.2); Sodium Level 139 mmol/L (136-145); Triglycerides 195 mg/dL; Very Low Density Lipoprotein 39 mg/dL (5-40)
[2019-07-15 19:21] LABS: HIV-1 RNA by PCR, Quant. < 20 copies/mL (.)
== END ==
PROVIDERS: PCP Family Medicine; Referring Provider Internal Medicine Infectious Disease; Visit Provider Internal Medicine Infectious Disease
DX: B20 Human immunodeficiency virus [HIV] disease (principal); E78.5 Hyperlipidemia, unspecified
CPT/HCPCS: 36415; 80053; 80061; 85025; 87536

== ENCOUNTER → 2019-08-04 12:14 | Outpatient (CLI) | payer MEDICARE, MEDICAID, SELFPAY ==
[2018-06-15 08:42] VITALS: BMI 20.9
--- NOTE | 2019-08-04 12:18 | ADUL_ITS ---
Reason For Study: atherosclerosis Left Velocities Ext Iliac Artery, dist = 76.4 cm./sec. Common Femoral Artery, mid = 85.2 cm./sec. Supf. Femoral Artery, prox = 65.8 cm./sec. Supf. Femoral Artery, mid = 24.1 cm./sec. Supf. Femoral Artery, dist = 26.1 cm./sec. Profunda Femoral Artery = 221.8 cm./sec. Popliteal Artery, proximal, = 44.0 cm./sec. Popliteal Artery, mid = 22.3 cm./sec. Popliteal Artery, distal = 34.6 cm./sec. Ant.Tibial Artery, prox = 23.2 cm./sec. Ant Tibial Artery, mid = 21.3 cm./sec. Ant. Tibial Artery, distal = 8.1 cm./sec. Post. Tibial Artery, prox = 35.5 cm./sec. Post Tibial Artery, mid = 46.8 cm./sec. Post Tibial Artery, dist. = 25.1 cm./sec. Peroneal Artery, prox = 32.7 cm./sec. Peroneal Artery, mid = 34.5 cm./sec. Peroneal Artery,dist. = 41.1 cm./sec. Procedure The exam was diagnostic. Exam performed in department. Interpretation Summary Stenosis in left profunda otherwise appears patent. Left SFA goes from triphasic to more monophasic flow distally. Ordering Physician: Damon Lanier Performed By: Juan David Bullock RVT
--- NOTE | 2019-08-04 12:18 | ART_ITS ---
Reason For Study: atherosclerosis Procedure A bilateral lower extremity continuous wave Doppler with analog waveform analysis and ankle brachial indexes. Left Segmental Pressures Left brachial= 136mmHg. Left posterior tibial artery = 101mmHg. Left dorsalis pedis artery = 90mmHg. The left dorsalis pedis waveforms are biphasic. The left posterior tibial artery waveforms are biphasic. Right Segmental Pressures Right brachial= 132mmHg. Right posterior tibial artery = 144mmHg. Right dorsalis pedis artery = 128mmHg. The right dorsalis pedis waveforms are biphasic. The right posterior tibial artery waveforms are triphasic. Indices The right ankle brachial index by the posterior tibial artery is 1.06. The right ankle brachial index by the dorsalis pedis is .94. The left ankle brachial index by the posterior tibial artery is .74. The left ankle brachial index by the dorsalis pedis is .66. Interpretation Summary Right triphasic and FLAQUITA 1.06 and left biphasic to monophsaic and 0.74. Ordering Physician: Damon Lanier Performed By: TEE GAUTAM T
== END ==
PROVIDERS: PCP Family Medicine; Referring Provider Surgery Vascular Surgery; Visit Provider Surgery Vascular Surgery
DX: I70.245 Atherosclerosis of native arteries of left leg with ulceration of other part of foot (principal)
CPT/HCPCS: 93922; 93926

== ENCOUNTER → 2019-09-14 16:22 | Outpatient (CLI) | payer MEDICARE, MEDICAID, SELFPAY ==
[2018-06-15 08:42] VITALS: BMI 20.9
[2019-09-14 17:19] LABS: Amphetamine Urine VISTA NEGATIVE (<1000 ng/mL); Barbiturate Urine VISTA NEGATIVE (< 200 ng/mL); Benzodiazepine Urine VISTA NEGATIVE (< 200 ng/mL); Cocaine Urine VISTA NEGATIVE (< 300 ng/mL); Ecstacy Urine VISTA NEGATIVE (< 500 ng/mL); Methadone Urine VISTA NEGATIVE (< 300 ng/mL); PCP Urine VISTA NEGATIVE (< 25 ng/mL); THC Urine VISTA NEGATIVE (< 50 ng/mL); Vista UDS pH Range 6
== END ==
PROVIDERS: PCP Family Medicine; Referring Provider Anesthesiology Pain Medicine; Visit Provider Anesthesiology Pain Medicine
DX: F11.20 Opioid dependence, uncomplicated (principal)
CPT/HCPCS: 80307

== ENCOUNTER → 2019-12-22 09:05 | Outpatient (CLI) | payer MEDICARE, MEDICAID, SELFPAY ==
[2018-06-15 08:42] VITALS: BMI 20.9
[2019-12-22 09:43] LABS: Absolute Lymphocyte Count 2.56 X10^3/uL (0.83-4.51); Absolute Neutrophil Count 3.8 X10^3/uL (2.0-7.7); Basophil# 0.05 X10^3/uL; Basophil% 0.7 % (0-1); Eosinophil# 0.24 X10^3/uL; Eosinophils% 3.3 % (0-5); Hematocrit 45.6 % (40-54); Hemoglobin 15.1 g/dL (13.0-16.5); Lymphocyte # 2.56 X10^3/ul (4.0); Lymphocyte % 35.3 % (19-41); Mean Corp Hgb Conc 33.1 g/dL (32-36); Mean Corpuscular Hgb 32.2 pg (27.0-32.0); Mean Corpuscular Volume 97.2 fL (80-94); Mean Platelet Vol. 10.1 fl (6.2-12.0); Monocyte# 0.57 X10^3/uL; Monocyte% 7.9 % (0-10); NRBC Flagged by Analyzer 0 % (0-5); Neutrophil % 52.4 % (47-70); Platelet Count 186 K/mm3 (150-450); RBC Distribution Width CV 13.2 % (11.6-14.6); Red Blood Count 4.69 M/mm3 (4.6-6.2); White Blood Count 7.3 K/mm3 (4.4-11.0)
[2019-12-22 10:11] LABS: ALB/GLOB Ratio 0.9 RATIO (0.9-2.4); AST(SGOT) 17 U/L (15-37); Alanine Aminotransfer ALT/SGPT 21 U/L (16-61); Albumin, Serum 3.5 g/dL (3.2-5.0); Alkaline Phosphatase 63 U/L (45-117); Anion Gap 6 (5-15); BUN 16 mg/dL (7-18); BUN/Creat Ratio 13.9 RATIO (10-20); Calcium,Total 9.4 mg/dL (8.5-10.1); Chloride 104 mmol/L (98-107); Cholesterol 207 mg/dL (200); Creatinine, Serum 1.15 mg/dL (0.70-1.30); EST Glomerular Filtration Rate 69 mL/min (>60); Est Glom Filt Rate - Afr Amer 83 mL/min (>60); Globulin 4.1 g/dL (2.2-4.2); Glucose 94 mg/dL (74-106); High Density Lipoprotein 35 mg/dL; Potassium 3.8 mmol/L (3.5-5.1); Protein, Total 7.6 g/dL (6.4-8.2); Sodium Level 138 mmol/L (136-145); Triglycerides 129 mg/dL; Very Low Density Lipoprotein 26 mg/dL (5-40)
[2019-12-23 16:08] LABS: Absolute CD4 Helper 1032 /uL (359-1519); Basophils (Absolute) 0.1 x10E3/uL (0.0-0.2); Eosinophils 4 % (Not Estab.); Eosinophils (Absolute) 0.3 x10E3/uL (0.0-0.4); Hematocrit 44.3 % (37.5-51.0); Hemoglobin 15.2 g/dL (13.0-17.7); Immature Granulocytes 0 % (Not Estab.); Lymphs 34 % (Not Estab.); Lymphs (Absolute) 2.6 x10E3/uL (0.7-3.1); MCH 32.9 pg (26.6-33.0); MCHC 34.3 g/dL (31.5-35.7); MCV 96 fL (79-97); Monocytes 8 % (Not Estab.); Monocytes (Absolute) 0.6 x10E3/uL (0.1-0.9); Neutrophils 53 % (Not Estab.); Neutrophils (Absolute) 4.1 x10E3/uL (1.4-7.0); Percent % CD4 Pos. Lymph. 39.7 % (30.8-58.5); Platelets 192 x10E3/uL (150-450); RBC Count 4.62 x10E6/uL (4.14-5.80); RDW 13.4 % (11.6-15.4); WBC Count 7.6 x10E3/uL (3.4-10.8)
[2019-12-23 17:13] LABS: Immature Granulocytes Absolute 0 x10E3/uL (0.0-0.1)
[2019-12-24 08:10] LABS: HIV-1 RNA by PCR, Quant. 30 copies/mL (.); LOG10 HIV-1 RNA 1.477 (.)
== END ==
PROVIDERS: PCP Family Medicine; Referring Provider Internal Medicine Infectious Disease; Visit Provider Internal Medicine Infectious Disease
DX: B20 Human immunodeficiency virus [HIV] disease (principal); E78.5 Hyperlipidemia, unspecified
CPT/HCPCS: 36415; 80053; 80061; 85025; 86361; 87536

== ENCOUNTER → 2019-12-27 09:43 | Outpatient (CLI) | payer MEDICARE, MEDICAID, SELFPAY ==
[2018-06-15 08:42] VITALS: BMI 20.9
[2019-12-27 12:27] LABS: Absolute Lymphocyte Count 2.64 X10^3/uL (0.83-4.51); Basophil# 0.04 X10^3/uL; Basophil% 0.5 % (0-1); Eosinophil# 0.18 X10^3/uL; Eosinophils% 2.4 % (0-5); Hematocrit 45.7 % (40-54); Hemoglobin 15.9 g/dL (13.0-16.5); Lymphocyte # 2.64 X10^3/ul (4.0); Lymphocyte % 34.8 % (19-41); Mean Corp Hgb Conc 34.8 g/dL (32-36); Mean Corpuscular Hgb 33.8 pg (27.0-32.0); Mean Platelet Vol. 10.7 fl (6.2-12.0); Monocyte# 0.69 X10^3/uL; Monocyte% 9.1 % (0-10); NRBC Flagged by Analyzer 0 % (0-5); Neutrophil % 52.8 % (47-70); Platelet Count 185 K/mm3 (150-450); RBC Distribution Width SD 46.4 fl (35.1-43.9); Red Blood Count 4.71 M/mm3 (4.6-6.2); White Blood Count 7.6 K/mm3 (4.4-11.0)
[2019-12-27 13:27] LABS: ALB/GLOB Ratio 0.8 RATIO (0.9-2.4); AST(SGOT) 18 U/L (15-37); Alanine Aminotransfer ALT/SGPT 20 U/L (16-61); Albumin, Serum 3.5 g/dL (3.2-5.0); Alkaline Phosphatase 66 U/L (45-117); Anion Gap 5 (5-15); BUN 25 mg/dL (7-18); BUN/Creat Ratio 21.4 RATIO (10-20); Calcium,Total 9.4 mg/dL (8.5-10.1); Chloride 111 mmol/L (98-107); Cholesterol 201 mg/dL (200); Creatinine, Serum 1.17 mg/dL (0.70-1.30); EST Glomerular Filtration Rate 68 mL/min (>60); Est Glom Filt Rate - Afr Amer 82 mL/min (>60); Ferritin 134 ng/mL (26-388); Globulin 4.2 g/dL (2.2-4.2); Glucose 87 mg/dL (74-106); High Density Lipoprotein 33 mg/dL; Iron 75 ug/dL (65-175); Potassium 4.2 mmol/L (3.5-5.1); Protein, Total 7.7 g/dL (6.4-8.2); Sodium Level 139 mmol/L (136-145); Thyroid Stim Hormone (TSH) 0.62 uIU/mL (0.358-3.74); Triglycerides 160 mg/dL; Very Low Density Lipoprotein 32 mg/dL (5-40)
== END ==
PROVIDERS: PCP Family Medicine; Referring Provider Family Medicine; Visit Provider Family Medicine
DX: D64.9 Anemia, unspecified (principal); I73.9 Peripheral vascular disease, unspecified; E03.9 Hypothyroidism, unspecified
CPT/HCPCS: 36415; 80053; 80061; 82728; 83540; 84443; 85025

== ENCOUNTER 2020-06-22 12:59 | Outpatient (RCR) | payer MEDICAID, SELFPAY ==
[2018-06-15 08:42] VITALS: BMI 20.9
== END 2020-09-04 23:59 ==
LOC: IMMUN 12:59
PROVIDERS: PCP Family Medicine; Visit Provider Family Medicine
DX: Z23 Encounter for immunization (principal)
CPT/HCPCS: 0001A; 0002A; 91300

== ENCOUNTER 2020-06-26 14:00 | Outpatient (RCR) | payer MEDICARE, MEDICAID, SELFPAY ==
[2018-06-15 08:42] VITALS: BMI 20.9
--- NOTE | 2020-04-23 10:08 | HP.PTEVAL ---
Patient's Visit Information KATHYA YORK is a 59 year old M referred to Physical Therapy by Dr. Issa Snow MD with a diagnosis of Back pain/leg weakness. Date of Evaluation: 04/23/20 Physical Therapist: Andres Rabago DPT, OCS, CSCS - Visit Plan Frequency: 2-3x /Week Duration: 4-6 Weeks Plan: 2-3x/week until 4-6 weeks to start in pool for : HS and quad stretches. LB ROM emphasizing ext. Core and LE strengthening. Progress to HEP of the above as toelrated. - Subjective Having LBP(OA) and into L groin. Sometimes down to ankle but that is gone with shots to tailbone. No recent x rays or MRI. H/o operation in L groin to fix arteries. 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 No pain at rest. Worse with activity in L groin. Back worse with sitting. Cannot lie on back due to pain, sleeps in recliner. Got ebike last spring adn does not leave house much otherwise due to covid. LBP to 0-4/10 worse sitting upright too long. Groin pain. 0-4/10 worse on upgrade walking. Vaccuming apartment can caus epain in groin. Sleep is not interrupted. Lifting heavy objects off floor is avoided. Not employed , on disability form alcoholism and bipolar. Central nervousness shakes...not parkinsons. No regular exercises. Therapy in past was helpful. - Pain LBP Pain Intensity (Out of 10): 1 Pain Intensity Range: 0, 4 L groin Pain Intensity (Out of 10): 0 Pain Intensity Range: 4 - Objective Walks slow but stiff and steady. Posture is FW head and slightly kyphotic T/S and flattended curvature in L/S. L/S ext is max limited, SB min limited adn flexion mod limited. - SLR, - slump test. Foot pulse is hard to find B. reflexes 2/3 patella and achilles. Sensation WNL to gross light touch in LE. Strength LE hips abd /ext 3+, flexion 4-, knee flexiona dn ext 4-, ankles DF and inv/ev 4-. Steps are reciprocal with one rail and legs fatigue quickly especially in quads. Transfers are I. Hip AROM WFL adn symmetrical. - scour Juan Martinez Good balance - Goals Goal 1:: Pt feel 50% improved in pain to 1/10 at worst and manageable Goal Time Frame: 4-6 Weeks Goal 2:: Pt I approp HEP to minimize future problems Goal Time Frame: 4-6 Weeks Goal 3:: Lie on back without LBP Goal Time Frame: 4-6 Weeks Goal 4:: 12 or less on oswestry Goal Time Frame: 4-6 Weeks - Rehabilitation Potential Physical Therapy Diagnosis: Back degeneration Rehabilitation Potential: Fair - Anticipated Interventions Patient/Client Instruction: Educate patient on: Condition, Plan of Care For the Purpose of:: To decrease pain, To increase ROM, To improve muscle performance and motor function, To increase tolerance to activity/condition/position, To improve ability of physical actions for home/community/work/leisure Therapeutic Exercise to Include: Strength training, Postural training, Flexibilty training, Gait and locomotor training, In an aquatic setting, Passive ROM, Active ROM, Dynamic Lumbar Stabilization For the Purpose of:: To decrease pain, To increase ROM, To improve muscle performance and motor function, To increase tolerance to activity/condition/position, To improve gait and locomotor functions Thank you for the opportunity to evaluate your patient. For Medicare and Medicare HMO plans, please review the plan of care and approve it. It will need to be FAXED BACK to us at [phone] for Medicare purposes. For Medicare only, by signing this I certify the plan of care. Please let me know if there are questions or concerns regarding this plan of care. Physician Signature: Date:
--- NOTE | 2020-05-25 10:23 | HP.PTREVAL_ITS ---
Dr. Issa Snow MD, It has been my pleasure to treat KATHYA YORK over the last 9 visits for Back pain/leg weakness. Please see the progress note below for an update on the physical therapy plan of care! Subjective: Doing some stretching exercises at home as best he can do. Feels like pain is a little better. Some groin pain getting out of chair every now and then for 15 seconds to 4/10. Trasnient. Has been reaching up alot at hoem adn makes middle of back sore. Sleeping good. in recliner. Getting stronger. Almost ready to try walking 3 blocks. No strengthening at home. Objective/Function: Walks well today for short distances without deviations buit still stiff in hip extension. 4 degree PROM hip ext adn causes pain in groin LB with stretching transiently. Steps with one rail reciprocal, some noticeable weakness descending but otherwise looks good. Overall improving in pain and ROM, needs to progress to strength in pool then HEP. Appropriate to continue pool ex x 4 weeks toward goals with a fair prognosis Plan Plan: 2x/week x 4 weeks in water for continued LE and LB stretching and ROM emphasiziaang hip flexors, quads and ext of lumbar spine. Please progress LE and core strengthening to include a home core program and LE program with pics. Goals Goal 1:: Pt feel 50% improved in pain to 1/10 at worst and manageable Goal Time Frame: 4-6 Weeks Goal Progress: 40% Goal 2:: Pt I approp HEP to minimize future problems Goal Time Frame: 4-6 Weeks Goal Progress: stretches Goal 3:: Lie on back without LBP Goal Time Frame: 4-6 Weeks Goal Progress: flat but still pain. Goal 4:: 12 or less on oswestry Goal Time Frame: 4-6 Weeks Goal Progress: Progressing Anticipated Interventions Patient/Client Instruction: Educate patient on: Condition, Plan of Care For the Purpose of:: To decrease pain, To increase ROM, To improve muscle performance and motor function, To increase tolerance to activity/condition/position, To improve ability of physical actions for home/community/work/leisure Therapeutic Exercise to Include: Strength training, Postural training, F lexibilty training, Gait and locomotor training, In an aquatic setting, Passive ROM, Active ROM, Dynamic Lumbar Stabilization For the Purpose of:: To decrease pain, To increase ROM, To improve muscle performance and motor function, To increase tolerance to activity/condition/position, To improve gait and locomotor functions Please do not hesitate to contact me at [phone] by phone or if you have questions or concerns regarding this new plan of care! Sincerely, Andres Rabago, DPT, OCS, CSCS
--- NOTE | 2020-08-15 13:35 | HP.PTDCNRP_ITS ---
KATHYA YORK was seen in my office for initial evaluation on 04/23/20. The following Plan of Care was established for this patient: Initial Frequency: 2-3x /Week Initial Duration: 4-6 Weeks Patient/Client Instruction: Educate patient on: Condition, Plan of Care For the Purpose of:: To decrease pain, To increase ROM, To improve muscle performance and motor function, To increase tolerance to activity/condition/position, To improve ability of physical actions for home/community/work/leisure Therapeutic Exercise to Include: Strength training, Postural training, Flexibilty training, Gait and locomotor training, In an aquatic setting, Passive ROM, Active ROM, Dynamic Lumbar Stabilization For the Purpose of:: To decrease pain, To increase ROM, To improve muscle performance and motor function, To increase tolerance to activ ity/condition/position, To improve gait and locomotor functions This patient was last seen in our office 06/26/20. Pertinent comments regarding their Physical therapy will appear below: Pt seen 16 visits and was at least 40% better at last recheck. She was finishing her plan of care in the pool but cancelled last visit and neglected to reschedule. at this point, it has been over 6 weeks and I will discontinue due to nonattendance. At this point I will be discontinuing this patient from physical therapy. I would be happy to see this patient again in the future if found appropriate by the physician. Thank you! Andres Rabago, DPT, OCS, CSCS
== END 2020-06-26 19:00 | disposition home or self-care (01) ==
LOC: PT 14:00
PROVIDERS: PCP Family Medicine; Referring Provider Anesthesiology Pain Medicine; Visit Provider Anesthesiology Pain Medicine
DX: M54.9 Dorsalgia, unspecified (principal); R29.898 Other symptoms and signs involving the musculoskeletal system
CPT/HCPCS: 97113; 97161; 97164

== ENCOUNTER → 2020-07-24 09:03 | Outpatient (CLI) | payer MEDICARE, MEDICAID, SELFPAY ==
[2018-06-15 08:42] VITALS: BMI 20.9
[2020-07-24 09:59] LABS: Absolute Lymphocyte Count 2.99 X10^3/uL (0.83-4.51); Absolute Neutrophil Count 4.2 X10^3/uL (2.0-7.7); Basophil# 0.05 X10^3/uL; Basophil% 0.6 % (0-1); Eosinophil# 0.21 X10^3/uL; Eosinophils% 2.6 % (0-5); Hematocrit 46.4 % (40-54); Hemoglobin 15.4 g/dL (13.0-16.5); Lymphocyte # 2.99 X10^3/ul (0.83-4.51); Lymphocyte % 36.9 % (19-41); Mean Corp Hgb Conc 33.2 g/dL (32-36); Mean Corpuscular Hgb 31.9 pg (27.0-32.0); Mean Corpuscular Volume 96.1 fL (80-94); Mean Platelet Vol. 9.9 fl (6.2-12.0); Monocyte# 0.64 X10^3/uL; Monocyte% 7.9 % (0-10); NRBC Flagged by Analyzer 0 % (0-5); Neutrophil % 51.8 % (47-70); Platelet Count 213 K/mm3 (150-450); RBC Distribution Width CV 12.9 % (11.6-14.6); Red Blood Count 4.83 M/mm3 (4.6-6.2); White Blood Count 8.1 K/mm3 (4.4-11.0)
[2020-07-24 10:26] LABS: ALB/GLOB Ratio 0.8 RATIO (0.9-2.4); AST(SGOT) 18 U/L (15-37); Alanine Aminotransfer ALT/SGPT 25 U/L (16-61); Albumin, Serum 3.5 g/dL (3.2-5.0); Alkaline Phosphatase 66 U/L (45-117); Anion Gap 5 (5-15); BUN 16 mg/dL (7-18); BUN/Creat Ratio 13.8 RATIO (10-20); Calcium,Total 9.4 mg/dL (8.5-10.1); Chloride 106 mmol/L (98-107); Cholesterol 210 mg/dL (200); Creatinine, Serum 1.16 mg/dL (0.70-1.30); EST Glomerular Filtration Rate 68 mL/min (>60); Est Glom Filt Rate - Afr Amer 82 mL/min (>60); Globulin 4.2 g/dL (2.2-4.2); Glucose 98 mg/dL (74-106); High Density Lipoprotein 29 mg/dL; Protein, Total 7.7 g/dL (6.4-8.2); Sodium Level 138 mmol/L (136-145); Triglycerides 238 mg/dL; Very Low Density Lipoprotein 48 mg/dL (5-40)
[2020-07-25 16:09] LABS: Absolute CD4 Helper 1103 /uL (359-1519); Basophils (Absolute) 0.1 x10E3/uL (0.0-0.2); Eosinophils 3 % (Not Estab.); Eosinophils (Absolute) 0.2 x10E3/uL (0.0-0.4); Hematocrit 45.7 % (37.5-51.0); Hemoglobin 15.9 g/dL (13.0-17.7); Immature Granulocytes 1 % (Not Estab.); Lymphs 35 % (Not Estab.); Lymphs (Absolute) 2.8 x10E3/uL (0.7-3.1); MCH 33.1 pg (26.6-33.0); MCHC 34.8 g/dL (31.5-35.7); MCV 95 fL (79-97); Monocytes 8 % (Not Estab.); Monocytes (Absolute) 0.6 x10E3/uL (0.1-0.9); Neutrophils 52 % (Not Estab.); Neutrophils (Absolute) 4.2 x10E3/uL (1.4-7.0); Percent % CD4 Pos. Lymph. 39.4 % (30.8-58.5); Percent % CD8 Pos. Lymph. 30.2 % (12.0-35.5); Platelets 195 x10E3/uL (150-450); RDW 13.6 % (11.6-15.4); WBC Count 7.9 x10E3/uL (3.4-10.8)
[2020-07-25 17:13] LABS: Immature Granulocytes Absolute 0 x10E3/uL (0.0-0.1)
[2020-08-01 16:26] LABS: HIV-1 RNA by PCR, Quant. 40 copies/mL (.); LOG10 HIV-1 RNA 1.602 (.)
== END ==
PROVIDERS: PCP Family Medicine; Referring Provider Internal Medicine Infectious Disease; Visit Provider Internal Medicine Infectious Disease
DX: E78.5 Hyperlipidemia, unspecified (principal); B20 Human immunodeficiency virus [HIV] disease
CPT/HCPCS: 36415; 80053; 80061; 85025; 86360; 87536

== ENCOUNTER → 2020-12-07 12:56 | Outpatient (CLI) | payer MEDICARE, MEDICAID, SELFPAY ==
--- NOTE | 2020-12-07 13:01 | ART_ITS ---
Reason For Study: Atherosclerosis Procedure A bilateral lower extremity continuous wave Doppler with analog waveform analysis and ankle brachial indexes. Left Segmental Pressures Left brachial= 138mmHg. Left posterior tibial artery = 100mmHg. Left dorsalis pedis artery = 101mmHg. Left digit = 70 mmHg. The left dorsalis pedis waveforms are biphasic. The left posterior tibial artery waveforms are biphasic. Right Segmental Pressures Right brachial= 132mmHg. Right posterior tibial artery = 91mmHg. Right digit = 91 mmHg. The right posterior tibial artery waveforms are monophasic. The right dorsalis pedis waveforms are absent. Indices The right ankle brachial index by the posterior tibial artery is 0.66. The right digital-brachial index is 0.66. The left ankle brachial index by the dorsalis pedis is 0.73. The left ankle brachial index by the posterior tibial artery is 0.72. The left digital-brachial index is 0.51. VL/Ankle Brachial Index Interpretation Summary Right moderate occlusive disease with an FLAQUITA 0.66 with monophasic flow. Left mi ld occlusive disease with biphasic flow and an FLAQUITA 0.73. Digit brachial index 0.66 and 0.51. Ordering Physician: Damon Lanier Referring Physician: Solomon Johnson MD Performed By: Magdalene Garnett RVT
== END ==
PROVIDERS: PCP Family Medicine; Referring Provider Surgery Vascular Surgery; Visit Provider Surgery Vascular Surgery
DX: I70.245 Atherosclerosis of native arteries of left leg with ulceration of other part of foot (principal)
CPT/HCPCS: 93922

== ENCOUNTER → 2021-01-24 08:45 | Outpatient (CLI) | payer MEDICARE, MEDICAID, SELFPAY ==
[2021-01-24 09:14] LABS: Absolute Lymphocyte Count 2.54 X10^3/uL (0.83-4.51); Absolute Neutrophil Count 5.1 X10^3/uL (2.0-7.7); Basophil# 0.02 X10^3/uL; Basophil% 0.2 % (0-1); Eosinophil# 0.19 X10^3/uL; Eosinophils% 2.2 % (0-5); Hematocrit 43.3 % (40-54); Hemoglobin 14.8 g/dL (13.0-16.5); Lymphocyte # 2.54 X10^3/ul (0.83-4.51); Mean Corp Hgb Conc 34.2 g/dL (32-36); Mean Corpuscular Hgb 31.8 pg (27.0-32.0); Mean Corpuscular Volume 93.1 fL (80-94); Mean Platelet Vol. 9.4 fl (6.2-12.0); Monocyte# 0.66 X10^3/uL; Monocyte% 7.8 % (0-10); NRBC Flagged by Analyzer 0 % (0-5); Neutrophil # 5.05 X10^3/uL (2.7-7.7); Neutrophil % 59.6 % (47-70); Platelet Count 173 K/mm3 (150-450); RBC Distribution Width CV 13.2 % (11.6-14.6); RBC Distribution Width SD 45.3 fl (35.1-43.9); Red Blood Count 4.65 M/mm3 (4.6-6.2); White Blood Count 8.5 K/mm3 (4.4-11.0)
[2021-01-24 09:50] LABS: ALB/GLOB Ratio 0.8 RATIO (0.9-2.4); AST(SGOT) 14 U/L (15-37); Alanine Aminotransfer ALT/SGPT 17 U/L (16-61); Albumin, Serum 3.3 g/dL (3.2-5.0); Alkaline Phosphatase 68 U/L (45-117); Anion Gap 5 (5-15); BUN 10 mg/dL (7-18); BUN/Creat Ratio 8.8 RATIO (10-20); Calcium,Total 9.2 mg/dL (8.5-10.1); Chloride 108 mmol/L (98-107); Cholesterol 224 mg/dL (200); Creatinine, Serum 1.14 mg/dL (0.70-1.30); EST Glomerular Filtration Rate 69 mL/min (>60); Est Glom Filt Rate - Afr Amer 84 mL/min (>60); Glucose 95 mg/dL (74-106); High Density Lipoprotein 27 mg/dL; Protein, Total 7.3 g/dL (6.4-8.2); Sodium Level 139 mmol/L (136-145); Triglycerides 220 mg/dL; Very Low Density Lipoprotein 44 mg/dL (5-40)
[2021-01-25 16:22] LABS: HIV-1 RNA by PCR, Quant. < 20 copies/mL (.)
== END ==
PROVIDERS: PCP Family Medicine
DX: B20 Human immunodeficiency virus [HIV] disease (principal); E78.5 Hyperlipidemia, unspecified
CPT/HCPCS: 36415; 80053; 80061; 85025; 87536

== ENCOUNTER 2021-07-15 09:10 | Outpatient (CLI) | payer MEDICARE, MEDICAID, SELFPAY ==
[2021-07-15 12:12] LABS: Absolute Lymphocyte Count 3.12 X10^3/uL (0.83-4.51); Absolute Neutrophil Count 6.9 X10^3/uL (2.0-7.7); Basophil# 0.05 X10^3/uL; Basophil% 0.4 % (0-1); Eosinophil# 0.14 X10^3/uL; Eosinophils% 1.2 % (0-5); Hematocrit 45.8 % (40-54); Hemoglobin 15.4 g/dL (13.0-16.5); Lymphocyte # 3.12 X10^3/ul (0.83-4.51); Lymphocyte % 27.7 % (19-41); Mean Corp Hgb Conc 33.6 g/dL (32-36); Mean Platelet Vol. 10.1 fl (6.2-12.0); Monocyte# 0.95 X10^3/uL; Monocyte% 8.4 % (0-10); NRBC Flagged by Analyzer 0 % (0-5); Neutrophil # 6.92 X10^3/uL (2.7-7.7); Neutrophil % 61.7 % (47-70); Platelet Count 185 K/mm3 (150-450); RBC Distribution Width CV 13.1 % (11.6-14.6); RBC Distribution Width SD 45.8 fl (35.1-43.9); Red Blood Count 4.82 M/mm3 (4.6-6.2); White Blood Count 11.3 K/mm3 (4.4-11.0)
[2021-07-15 13:14] LABS: ALB/GLOB Ratio 0.9 RATIO (0.9-2.4); AST(SGOT) 14 U/L (15-37); Alanine Aminotransfer ALT/SGPT 30 U/L (16-61); Albumin, Serum 3.6 g/dL (3.2-5.0); Alkaline Phosphatase 64 U/L (45-117); Anion Gap 6 (5-15); BUN 11 mg/dL (7-18); BUN/Creat Ratio 9.6 RATIO (10-20); Calcium,Total 9.5 mg/dL (8.5-10.1); Chloride 105 mmol/L (98-107); Cholesterol 145 mg/dL (200); Creatinine, Serum 1.14 mg/dL (0.70-1.30); EST Glomerular Filtration Rate 69 mL/min (>60); Est Glom Filt Rate - Afr Amer 84 mL/min (>60); Globulin 4.1 g/dL (2.2-4.2); Glucose 96 mg/dL (74-106); High Density Lipoprotein 37 mg/dL; Potassium 3.9 mmol/L (3.5-5.1); Protein, Total 7.7 g/dL (6.4-8.2); Sodium Level 136 mmol/L (136-145); Triglycerides 115 mg/dL; Very Low Density Lipoprotein 23 mg/dL (5-40)
[2021-07-17 08:31] LABS: HIV-1 RNA by PCR, Quant. 110 copies/mL (.); LOG10 HIV-1 RNA 2.041 (.)
== END 2021-07-15 23:59 | disposition home or self-care (01) ==
PROVIDERS: PCP Family Medicine; Visit Provider Family Medicine
DX: B20 Human immunodeficiency virus [HIV] disease (principal); E78.5 Hyperlipidemia, unspecified
CPT/HCPCS: 36415; 80053; 80061; 85025; 87536

== ENCOUNTER → 2021-09-25 | Outpatient (CLI) | payer MEDICARE, MEDICAID, SELFPAY ==
[2021-09-25 12:42] LABS: Vitamin D,25 Hydroxy 66.6 ng/mL
[2021-09-25 13:01] LABS: Cholesterol 145 mg/dL (200); High Density Lipoprotein 30 mg/dL; PSA,Total - Annual Screen 0.27 ng/mL (0.00-4.00); Thyroid Stim Hormone (TSH) 0.09 uIU/mL (0.358-3.74); Triglycerides 174 mg/dL; Very Low Density Lipoprotein 35 mg/dL (5-40)
== END | disposition home or self-care (01) ==
LOC: MFPLAB 10:51
PROVIDERS: PCP Family Medicine; Visit Provider Family Medicine
DX: E78.2 Mixed hyperlipidemia (principal); E03.9 Hypothyroidism, unspecified; Z12.5 Encounter for screening for malignant neoplasm of prostate; E55.9 Vitamin D deficiency, unspecified
CPT/HCPCS: 36415; 80061; 82306; 84153; 84443; G0103

== ENCOUNTER → 2021-12-25 | Outpatient (CLI) | payer MEDICARE, MEDICAID, SELFPAY ==
[2021-12-25 12:40] LABS: Absolute Lymphocyte Count 2.75 X10^3/uL (0.83-4.51); Absolute Neutrophil Count 7.4 X10^3/uL (2.0-7.7); Basophil# 0.04 X10^3/uL; Basophil% 0.4 % (0-1); Eosinophil# 0.13 X10^3/uL; Eosinophils% 1.2 % (0-5); Hematocrit 46.1 % (40-54); Hemoglobin 15.7 g/dL (13.0-16.5); Lymphocyte # 2.75 X10^3/ul (0.83-4.51); Lymphocyte % 24.8 % (19-41); Mean Corp Hgb Conc 34.1 g/dL (32-36); Mean Corpuscular Hgb 32.4 pg (27.0-32.0); Mean Corpuscular Volume 95.2 fL (80-94); Mean Platelet Vol. 10.5 fl (6.2-12.0); Monocyte# 0.77 X10^3/uL; NRBC Flagged by Analyzer 0 % (0-5); Neutrophil # 7.35 X10^3/uL (2.7-7.7); Neutrophil % 66.3 % (47-70); Platelet Count 181 K/mm3 (150-450); RBC Distribution Width CV 12.9 % (11.6-14.6); RBC Distribution Width SD 45.6 fl (35.1-43.9); Red Blood Count 4.84 M/mm3 (4.6-6.2); White Blood Count 11.1 K/mm3 (4.4-11.0)
[2021-12-25 13:14] LABS: ALB/GLOB Ratio 0.8 RATIO (0.9-2.4); AST(SGOT) 17 U/L (15-37); Alanine Aminotransfer ALT/SGPT 31 U/L (16-61); Albumin, Serum 3.4 g/dL (3.2-5.0); Alkaline Phosphatase 65 U/L (45-117); Anion Gap 8 (5-15); BUN 12 mg/dL (7-18); BUN/Creat Ratio 10.9 RATIO (10-20); Calcium,Total 9.3 mg/dL (8.5-10.1); Chloride 105 mmol/L (98-107); EST Glomerular Filtration Rate 72 mL/min (>60); Est Glom Filt Rate - Afr Amer 87 mL/min (>60); Globulin 4.2 g/dL (2.2-4.2); Glucose 90 mg/dL (74-106); Potassium 3.9 mmol/L (3.5-5.1); Protein, Total 7.6 g/dL (6.4-8.2); Sodium Level 139 mmol/L (136-145); T4 Free Direct 1.43 ng/dL (0.76-1.46)
[2021-12-29 09:08] LABS: HIV-1 RNA by PCR, Quant. < 20 copies/mL (.)
== END | disposition home or self-care (01) ==
PROVIDERS: PCP Family Medicine
DX: B20 Human immunodeficiency virus [HIV] disease (principal); E78.2 Mixed hyperlipidemia; E03.9 Hypothyroidism, unspecified
CPT/HCPCS: 80053; 84439; 84443; 85025; 87536

== ENCOUNTER → 2022-03-19 | Outpatient (CLI) | payer MEDICARE, MEDICAID, SELFPAY ==
[2022-03-19 13:15] LABS: T4 Free Direct 1.37 ng/dL (0.76-1.46); Thyroid Stim Hormone (TSH) 0.39 uIU/mL (0.358-3.74)
== END | disposition home or self-care (01) ==
LOC: MFPLAB 11:11
PROVIDERS: PCP Family Medicine; Referring Provider Family Medicine; Visit Provider Family Medicine
DX: E03.9 Hypothyroidism, unspecified (principal)
CPT/HCPCS: 36415; 84439; 84443

== ENCOUNTER → 2022-03-28 | Outpatient (CLI) | payer MEDICARE, MEDICAID, SELFPAY ==
--- NOTE | 2022-03-28 08:38 | AAVD_ITS ---
Reason For Study: ATHEROSCLEROSIS Aorta Measurements Aorta Doppler Measurements Proximal aorta measures1.75 x 1.78cm. in cross- Peak systolic flow velocities within the proximal sectional axis. aorta measure 75.9 cm/sec. Proximal aorta measures1.80cm. in longitudinal Peak systolic flow velocities within the mid aorta axis. measure 38.7 cm/sec. Mid aorta measures1.99 x 1.93cm. in cross- Peak systolic flow velocities within the distal sectional axis. aorta measure 36.5 cm/sec. Mid aorta measures1.94cm. in longitudinal axis. Distal aorta measures2.28 x 2.30cm. in cross- sectional axis. Distal aorta measures2.16cm. in longitudinal axis. Left Iliac Artery Left iliac artery measures 1.18 x 1.26 cm. in the cross-sectional axis. Left iliac artery measures 1.19 cm. in the longitudinal axis. Peak systolic velocity in the left iliac artery measures 93.9 cm/sec. Right Iliac Artery Right iliac artery measures 1.40 x 1.42 cm. in the cross-sectional axis. Right iliac artery measures 1.50 cm. in the longitudinal axis. Peak systolic velocity in the right iliac artery measures 52.0 cm/sec. VL/Abd Aortic/IVC Duplex scan Interpretation Summary Aortoiliac no aneurysm or stenosis. Ordering Physician: Damon Lanier Referring Physician: Solomon Johnson Performed By: Mckenna Gentile, RDCS, RVT
--- NOTE | 2022-03-28 08:39 | ART_ITS ---
Reason For Study: ATHEROSCLEROSIS OF LOWER EXTREMITIES Left Segmental Pressures Left brachial= 126mmHg. Left posterior tibial artery = 97mmHg. Left dorsalis pedis artery = 84mmHg. The left posterior tibial artery waveforms are biphasic. The left dorsalis pedis waveforms are monophasic. Right Segmental Pressures Right brachial= 128mmHg. Right posterior tibial artery = 80mmHg. Right dorsalis pedis artery = 77mmHg. The right posterior tibial artery waveforms are monophasic. The right dorsalis pedis waveforms are monophasic. Indices The right resting ankle brachial index is 0.63. The right ankle brachial index by the posterior tibial artery is 0.63. The right ankle brachial index by the dorsalis pedis is 0.60. The left resting ankle brachial index is 0.76. The left ankle brachial index by the posterior tibial artery is 0.76. The left ankle brachial index by the dorsalis pedis is 0.66. VL/Ankle Brachial Index Interpretation Summary Right moderate occlussive disease with monophasic flow and FLAQUITA 0.63. Left mild with biphasic flow and FLAQUITA 0.76. Ordering Physician: Damon Lanier Referring Physician: TAZ BAIRES MD Performed By: Mckenna Gentile RVJb, RDCS
== END | disposition home or self-care (01) ==
LOC: CVS 08:36
PROVIDERS: PCP Family Medicine; Visit Provider Surgery Vascular Surgery
DX: I70.0 Atherosclerosis of aorta (principal); I70.245 Atherosclerosis of native arteries of left leg with ulceration of other part of foot
CPT/HCPCS: 93922; 93978

== ENCOUNTER → 2022-07-24 | Outpatient (CLI) | payer MEDICARE, MEDICAID, SELFPAY ==
[2022-07-24 10:24] LABS: Absolute Lymphocyte Count 2.67 X10^3/uL (0.83-4.51); Absolute Neutrophil Count 6.1 X10^3/uL (2.0-7.7); Basophil# 0.04 X10^3/uL; Basophil% 0.4 % (0-1); Eosinophil# 0.14 X10^3/uL; Eosinophils% 1.4 % (0-5); Hematocrit 46.9 % (40-54); Hemoglobin 15.7 g/dL (13.0-16.5); Lymphocyte # 2.67 X10^3/ul (0.83-4.51); Lymphocyte % 27.6 % (19-41); Mean Corp Hgb Conc 33.5 g/dL (32-36); Mean Corpuscular Volume 95.7 fL (80-94); Mean Platelet Vol. 9.6 fl (6.2-12.0); Monocyte# 0.68 X10^3/uL; NRBC Flagged by Analyzer 0 % (0-5); Neutrophil % 63.2 % (47-70); Platelet Count 154 K/mm3 (150-450); RBC Distribution Width CV 13.1 % (11.6-14.6); RBC Distribution Width SD 46.7 fl (35.1-43.9); White Blood Count 9.7 K/mm3 (4.4-11.0)
[2022-07-24 10:53] LABS: AST(SGOT) 17 U/L (15-37); Alanine Aminotransfer ALT/SGPT 23 U/L (16-61); Albumin, Serum 3.6 g/dL (3.2-5.0); Alkaline Phosphatase 58 U/L (45-117); Anion Gap 4 (5-15); BUN 7 mg/dL (7-18); BUN/Creat Ratio 6.2 RATIO (10-20); Calcium,Total 9.4 mg/dL (8.5-10.1); Chloride 108 mmol/L (98-107); Creatinine, Serum 1.13 mg/dL (0.70-1.30); EST Glomerular Filtration Rate 70 mL/min (>60); Est Glom Filt Rate - Afr Amer 84 mL/min (>60); Globulin 3.7 g/dL (2.2-4.2); Glucose 104 mg/dL (74-106); Potassium 4.1 mmol/L (3.5-5.1); Protein, Total 7.3 g/dL (6.4-8.2); Sodium Level 137 mmol/L (136-145)
[2022-07-26 00:07] LABS: HIV-1 RNA by PCR, Quant. < 20 copies/mL (.)
== END | disposition home or self-care (01) ==
PROVIDERS: PCP Family Medicine; Referring Provider Internal Medicine Infectious Disease; Visit Provider Internal Medicine Infectious Disease
DX: B20 Human immunodeficiency virus [HIV] disease (principal)
CPT/HCPCS: 36415; 80053; 85025; 87536

== ENCOUNTER 2023-01-15 08:11 | Outpatient (CLI) | payer MEDICARE, MEDICAID, SELFPAY ==
[2023-01-15 08:47] LABS: Absolute Lymphocyte Count 1.92 X10^3/uL (0.83-4.51); Absolute Neutrophil Count 4.8 X10^3/uL (2.0-7.7); Basophil# 0.04 X10^3/uL; Basophil% 0.5 % (0-1); Eosinophil# 0.13 X10^3/uL; Eosinophils% 1.7 % (0-5); Hematocrit 44.6 % (40-54); Hemoglobin 14.9 g/dL (13.0-16.5); Lymphocyte # 1.92 X10^3/ul (0.83-4.51); Lymphocyte % 24.7 % (19-41); Mean Corp Hgb Conc 33.4 g/dL (32-36); Mean Corpuscular Hgb 31.7 pg (27.0-32.0); Mean Corpuscular Volume 94.9 fL (80-94); Mean Platelet Vol. 9.9 fl (6.2-12.0); Monocyte# 0.77 X10^3/uL; Monocyte% 9.9 % (0-10); NRBC Flagged by Analyzer 0 % (0-5); Neutrophil # 4.82 X10^3/uL (2.7-7.7); Neutrophil % 62.2 % (47-70); Platelet Count 205 K/mm3 (150-450); RBC Distribution Width CV 12.6 % (11.6-14.6); RBC Distribution Width SD 44.8 fl (35.1-43.9); White Blood Count 7.8 K/mm3 (4.4-11.0)
[2023-01-15 18:45] LABS: Hemoglobin A1c 5.1 % (3.8-5.6)
[2023-01-17 02:07] LABS: HIV-1 RNA by PCR, Quant. < 20 copies/mL (.)
[2023-01-17 06:44] LABS: ALB/GLOB Ratio 0.7 RATIO (0.9-2.4); AST(SGOT) 17 U/L (15-37); Alanine Aminotransfer ALT/SGPT 27 U/L (16-61); Albumin, Serum 3.2 g/dL (3.2-5.0); Alkaline Phosphatase 64 U/L (45-117); Anion Gap 5 (5-15); BUN 9 mg/dL (7-18); BUN/Creat Ratio 8.5 RATIO (10-20); Calcium,Total 9.3 mg/dL (8.5-10.1); Chloride 106 mmol/L (98-107); Cholesterol 136 mg/dL (200); Creatinine, Serum 1.06 mg/dL (0.70-1.30); EST Glomerular Filtration Rate 75 mL/min (>60); Est Glom Filt Rate - Afr Amer 91 mL/min (>60); Globulin 4.3 g/dL (2.2-4.2); Glucose 107 mg/dL (74-106); High Density Lipoprotein 25 mg/dL; Prolactin 4.7 ng/mL; Protein, Total 7.5 g/dL (6.4-8.2); Sodium Level 137 mmol/L (136-145); Triglycerides 174 mg/dL; Very Low Density Lipoprotein 35 mg/dL (5-40)
== END 2023-01-15 23:59 | disposition home or self-care (01) ==
PROVIDERS: PCP Family Medicine; Visit Provider Internal Medicine Infectious Disease
DX: B20 Human immunodeficiency virus [HIV] disease (principal); Z79.899 Other long term (current) drug therapy; E78.5 Hyperlipidemia, unspecified
CPT/HCPCS: 80053; 80061; 83036; 84146; 85025; 87536

== ENCOUNTER → 2023-07-15 | Outpatient (CLI) | payer MEDICARE, MEDICAID, SELFPAY ==
[2023-07-15 15:44] LABS: Absolute Lymphocyte Count 3.38 X10^3/uL (0.83-4.51); Absolute Neutrophil Count 7.1 X10^3/uL (2.0-7.7); Basophil# 0.06 X10^3/uL; Basophil% 0.5 % (0-1); Eosinophil# 0.11 X10^3/uL; Hematocrit 45.9 % (40-54); Hemoglobin 15.7 g/dL (13.0-16.5); Lymphocyte # 3.38 X10^3/ul (0.83-4.51); Mean Corp Hgb Conc 34.2 g/dL (32-36); Mean Corpuscular Hgb 32.3 pg (27.0-32.0); Mean Corpuscular Volume 94.4 fL (80-94); Mean Platelet Vol. 10.2 fl (6.2-12.0); Monocyte# 0.58 X10^3/uL; Monocyte% 5.2 % (0-10); NRBC Flagged by Analyzer 0 % (0-5); Neutrophil # 7.08 X10^3/uL (2.7-7.7); Neutrophil % 62.9 % (47-70); Platelet Count 181 K/mm3 (150-450); RBC Distribution Width SD 45.5 fl (35.1-43.9); Red Blood Count 4.86 M/mm3 (4.6-6.2); White Blood Count 11.3 K/mm3 (4.4-11.0)
[2023-07-15 16:28] LABS: AST(SGOT) 21 U/L (15-37); Alanine Aminotransfer ALT/SGPT 30 U/L (16-61); Albumin, Serum 3.7 g/dL (3.2-5.0); Alkaline Phosphatase 63 U/L (45-117); Anion Gap 6 (5-15); BUN 7 mg/dL (7-18); BUN/Creat Ratio 6.4 RATIO (10-20); Calcium,Total 9.5 mg/dL (8.5-10.1); Chloride 110 mmol/L (98-107); EST Glomerular Filtration Rate 72 mL/min (>60); Est Glom Filt Rate - Afr Amer 87 mL/min (>60); Globulin 3.8 g/dL (2.2-4.2); Glucose 89 mg/dL (74-106); Potassium 3.8 mmol/L (3.5-5.1); Protein, Total 7.5 g/dL (6.4-8.2); Sodium Level 140 mmol/L (136-145)
[2023-07-18 05:07] LABS: HIV-1 RNA by PCR, Quant. 600 copies/mL (.); LOG10 HIV-1 RNA 2.778 (.)
== END | disposition home or self-care (01) ==
PROVIDERS: PCP Family Medicine; Referring Provider Internal Medicine Infectious Disease; Visit Provider Internal Medicine Infectious Disease
DX: B20 Human immunodeficiency virus [HIV] disease (principal)
CPT/HCPCS: 36415; 80053; 85025; 87536

== ENCOUNTER → 2023-07-16 | Outpatient (CLI) | payer MEDICARE, MEDICAID, SELFPAY ==
[2023-07-20 12:08] LABS: Absolute CD4 Helper 1735 /uL (359-1519); Basophils (Absolute) 0.1 x10E3/uL (0.0-0.2); CD4/CD8 Ratio 1.79 (0.92-3.72); Eosinophils 2 % (Not Estab.); Eosinophils (Absolute) 0.1 x10E3/uL (0.0-0.4); Hematocrit 46.3 % (37.5-51.0); Hemoglobin 15.3 g/dL (13.0-17.7); Immature Granulocytes 0 % (Not Estab.); Immature Granulocytes Absolute 0 x10E3/uL (0.0-0.1); Lymphs 39 % (Not Estab.); Lymphs (Absolute) 3.7 x10E3/uL (0.7-3.1); MCH 32.2 pg (26.6-33.0); MCV 98 fL (79-97); Monocytes 5 % (Not Estab.); Monocytes (Absolute) 0.5 x10E3/uL (0.1-0.9); Neutrophils 53 % (Not Estab.); Neutrophils (Absolute) 5.1 x10E3/uL (1.4-7.0); Percent % CD4 Pos. Lymph. 46.9 % (30.8-58.5); Percent % CD8 Pos. Lymph. 26.2 % (12.0-35.5); Platelets 186 x10E3/uL (150-450); RBC Count 4.75 x10E6/uL (4.14-5.80); RDW 13.4 % (11.6-15.4); WBC Count 9.5 x10E3/uL (3.4-10.8)
== END | disposition home or self-care (01) ==
LOC: LAB.FUTURE 14:32
PROVIDERS: PCP Family Medicine; Visit Provider Internal Medicine Infectious Disease
DX: B20 Human immunodeficiency virus [HIV] disease (principal)
CPT/HCPCS: 86360

== ENCOUNTER → 2023-08-17 | Outpatient (CLI) | payer MEDICARE, MEDICAID, SELFPAY ==
[2023-08-19 03:07] LABS: HIV-1 RNA by PCR, Quant. < 20 copies/mL (.)
== END | disposition home or self-care (01) ==
PROVIDERS: PCP Family Medicine; Visit Provider Internal Medicine Infectious Disease
DX: B20 Human immunodeficiency virus [HIV] disease (principal)
CPT/HCPCS: 36415; 87536

== ENCOUNTER → 2023-11-11 | Outpatient (CLI) | payer MEDICARE, MEDICAID, SELFPAY ==
[2023-11-11 12:31] LABS: Cholesterol 146 mg/dL (200); High Density Lipoprotein 40 mg/dL; Triglycerides 101 mg/dL; Very Low Density Lipoprotein 20 mg/dL (5-40)
== END | disposition home or self-care (01) ==
LOC: MFPLAB 10:44
PROVIDERS: PCP Family Medicine; Visit Provider Family Medicine
DX: E78.2 Mixed hyperlipidemia (principal)
CPT/HCPCS: 36415; 80061

== ENCOUNTER → 2024-01-13 | Outpatient (CLI) | payer MEDICARE, MEDICAID, SELFPAY ==
[2024-01-13 11:06] LABS: Absolute Lymphocyte Count 2.65 X10^3/uL (0.83-4.51); Absolute Neutrophil Count 9.8 X10^3/uL (2.0-7.7); Basophil# 0.04 X10^3/uL; Basophil% 0.3 % (0-1); Eosinophils% 0.7 % (0-5); Hematocrit 47.1 % (40-54); Hemoglobin 16.1 g/dL (13.0-16.5); Lymphocyte # 2.65 X10^3/ul (0.83-4.51); Lymphocyte % 19.7 % (19-41); Mean Corp Hgb Conc 34.2 g/dL (32-36); Mean Corpuscular Hgb 32.7 pg (27.0-32.0); Mean Corpuscular Volume 95.7 fL (80-94); Mean Platelet Vol. 10.1 fl (6.2-12.0); Monocyte# 0.77 X10^3/uL; Monocyte% 5.7 % (0-10); NRBC Flagged by Analyzer 0 % (0-5); Neutrophil # 9.81 X10^3/uL (2.7-7.7); Neutrophil % 73.2 % (47-70); Platelet Count 203 K/mm3 (150-450); RBC Distribution Width CV 13.4 % (11.6-14.6); RBC Distribution Width SD 47.7 fl (35.1-43.9); Red Blood Count 4.92 M/mm3 (4.6-6.2); White Blood Count 13.4 K/mm3 (4.4-11.0)
[2024-01-13 11:33] LABS: ALB/GLOB Ratio 0.9 RATIO (0.9-2.4); AST(SGOT) 34 U/L (15-37); Alanine Aminotransfer ALT/SGPT 37 U/L (16-61); Albumin, Serum 3.9 g/dL (3.2-5.0); Alkaline Phosphatase 72 U/L (45-117); Anion Gap 6 (5-15); BUN 8 mg/dL (7-18); BUN/Creat Ratio 6.8 RATIO (10-20); Chloride 107 mmol/L (98-107); Creatinine, Serum 1.18 mg/dL (0.70-1.30); EST Glomerular Filtration Rate 66 mL/min (>60); Est Glom Filt Rate - Afr Amer 80 mL/min (>60); Globulin 4.2 g/dL (2.2-4.2); Glucose 105 mg/dL (74-106); Potassium 3.7 mmol/L (3.5-5.1); Protein, Total 8.1 g/dL (6.4-8.2); Sodium Level 140 mmol/L (136-145)
[2024-01-15 15:58] LABS: Absolute CD4 Helper 1115 /uL (359-1519); Basophils (Absolute) 0.1 x10E3/uL (0.0-0.2); CD4/CD8 Ratio 1.84 (0.92-3.72); Eosinophils 1 % (Not Estab.); Eosinophils (Absolute) 0.1 x10E3/uL (0.0-0.4); Hematocrit 50.1 % (37.5-51.0); Hemoglobin 16.5 g/dL (13.0-17.7); Immature Granulocytes 1 % (Not Estab.); Immature Granulocytes Absolute 0.1 x10E3/uL (0.0-0.1); Lymphs 20 % (Not Estab.); Lymphs (Absolute) 2.6 x10E3/uL (0.7-3.1); MCH 32.4 pg (26.6-33.0); MCHC 32.9 g/dL (31.5-35.7); MCV 98 fL (79-97); Monocytes 6 % (Not Estab.); Monocytes (Absolute) 0.7 x10E3/uL (0.1-0.9); Neutrophils 72 % (Not Estab.); Neutrophils (Absolute) 9.6 x10E3/uL (1.4-7.0); Percent % CD4 Pos. Lymph. 42.9 % (30.8-58.5); Percent % CD8 Pos. Lymph. 23.3 % (12.0-35.5); Platelets 211 x10E3/uL (150-450); RBC Count 5.09 x10E6/uL (4.14-5.80); RDW 13.2 % (11.6-15.4); WBC Count 13.2 x10E3/uL (3.4-10.8)
== END | disposition home or self-care (01) ==
LOC: LAB 09:48
PROVIDERS: PCP Family Medicine; Referring Provider Internal Medicine Infectious Disease; Visit Provider Internal Medicine Infectious Disease
DX: B20 Human immunodeficiency virus [HIV] disease (principal)
CPT/HCPCS: 36415; 80053; 85025; 86360; 86703; 87536

== ENCOUNTER → 2024-04-25 | Outpatient (CLI) | payer MEDICARE, MEDICAID, SELFPAY ==
[2024-04-25 18:16] LABS: ALB/GLOB Ratio 0.9 RATIO (0.9-2.4); AST(SGOT) 21 U/L (15-37); Alanine Aminotransfer ALT/SGPT 21 U/L (16-61); Albumin, Serum 3.7 g/dL (3.2-5.0); Alkaline Phosphatase 64 U/L (45-117); Anion Gap 10 (5-15); BUN 14 mg/dL (7-18); BUN/Creat Ratio 11.5 RATIO (10-20); Calcium,Total 9.7 mg/dL (8.5-10.1); Chloride 109 mmol/L (98-107); Creatinine, Serum 1.22 mg/dL (0.70-1.30); EST Glomerular Filtration Rate 63 mL/min (>60); Est Glom Filt Rate - Afr Amer 77 mL/min (>60); Globulin 4.1 g/dL (2.2-4.2); Glucose 102 mg/dL (74-106); Potassium 3.6 mmol/L (3.5-5.1); Protein, Total 7.8 g/dL (6.4-8.2); Sodium Level 141 mmol/L (136-145); T4 Free Direct 1.27 ng/dL (0.76-1.46)
[2024-04-27 07:07] LABS: Prealbumin 22 mg/dL (10-36)
== END | disposition home or self-care (01) ==
LOC: MFPLAB 14:06
PROVIDERS: PCP Family Medicine; Referring Provider Family Medicine; Visit Provider Family Medicine
DX: E03.9 Hypothyroidism, unspecified (principal); R63.4 Abnormal weight loss
CPT/HCPCS: 36415; 80053; 84134; 84439; 84443

== ENCOUNTER → 2024-07-13 | Outpatient (CLI) | payer MEDICARE, MEDICAID, SELFPAY ==
[2024-07-13 10:45] LABS: Absolute Lymphocyte Count 3.45 X10^3/uL (0.83-4.51); Absolute Neutrophil Count 4.7 X10^3/uL (2.0-7.7); Basophil# 0.03 X10^3/uL; Basophil% 0.3 % (0-1); Eosinophil# 0.19 X10^3/uL; Eosinophils% 2.1 % (0-5); Hematocrit 43.8 % (40-54); Hemoglobin 15.3 g/dL (13.0-16.5); Lymphocyte # 3.45 X10^3/ul (0.83-4.51); Lymphocyte % 38.5 % (19-41); Mean Corp Hgb Conc 34.9 g/dL (32-36); Mean Corpuscular Hgb 33.6 pg (27.0-32.0); Mean Corpuscular Volume 96.3 fL (80-94); Mean Platelet Vol. 9.5 fl (6.2-12.0); Monocyte# 0.54 X10^3/uL; NRBC Flagged by Analyzer 0 % (0-5); Neutrophil # 4.72 X10^3/uL (2.7-7.7); Neutrophil % 52.9 % (47-70); Platelet Count 160 K/mm3 (150-450); RBC Distribution Width CV 12.8 % (11.6-14.6); RBC Distribution Width SD 45.9 fl (35.1-43.9); Red Blood Count 4.55 M/mm3 (4.6-6.2)
[2024-07-13 11:15] LABS: ALB/GLOB Ratio 1.3 RATIO (0.9-2.4); AST(SGOT) 29 U/L (<=37); Alanine Aminotransfer ALT/SGPT 22 U/L (<=46); Alkaline Phosphatase 60 U/L (40-129); Anion Gap 11 (5-15); BUN 13 mg/dL (4-19); BUN/Creat Ratio 10.8 RATIO (10-20); Calcium,Total 9.3 mg/dL (7.6-11.0); Carbon Dioxide 23.6 mmol/L (21.0-32.0); Chloride 104 mmol/L (98-108); Creatinine, Serum 1.16 mg/dL (0.70-1.20); EST Glomerular Filtration Rate 70 (>60); Glucose 100 mg/dL (70-99); Sodium Level 139 mmol/L (133-145); Total Bilirubin 0.29 mg/dL (0.00-1.30)
[2024-07-14 17:08] LABS: Absolute CD4 Helper 1360 /uL (359-1519); Basophils (Absolute) 0 x10E3/uL (0.0-0.2); Eosinophils 2 % (Not Estab.); Eosinophils (Absolute) 0.2 x10E3/uL (0.0-0.4); Hemoglobin 15.5 g/dL (13.0-17.7); Immature Granulocytes 0 % (Not Estab.); Immature Granulocytes Absolute 0 x10E3/uL (0.0-0.1); Lymphs 39 % (Not Estab.); Lymphs (Absolute) 3.2 x10E3/uL (0.7-3.1); MCH 33.5 pg (26.6-33.0); MCHC 33.7 g/dL (31.5-35.7); MCV 100 fL (79-97); Monocytes 7 % (Not Estab.); Monocytes (Absolute) 0.6 x10E3/uL (0.1-0.9); Neutrophils 52 % (Not Estab.); Neutrophils (Absolute) 4.3 x10E3/uL (1.4-7.0); Percent % CD4 Pos. Lymph. 42.5 % (30.8-58.5); Platelets 164 x10E3/uL (150-450); RBC Count 4.62 x10E6/uL (4.14-5.80); RDW 13.3 % (11.6-15.4); WBC Count 8.3 x10E3/uL (3.4-10.8)
[2024-07-15 03:07] LABS: HIV-1 RNA by PCR, Quant. 130 copies/mL (.); LOG10 HIV-1 RNA 2.114 (.)
== END | disposition home or self-care (01) ==
LOC: LAB 10:08
PROVIDERS: PCP Family Medicine; Referring Provider Internal Medicine Infectious Disease; Visit Provider Internal Medicine Infectious Disease
DX: B20 Human immunodeficiency virus [HIV] disease (principal)
CPT/HCPCS: 36415; 80053; 85025; 86361; 87536

== ENCOUNTER → 2024-08-02 | Outpatient (CLI) | payer MEDICARE, MEDICAID, SELFPAY ==
--- NOTE | 2024-08-02 08:29 | AAAS_ITS ---
Reason For Study Reason For Study: AAA Screening Aorta Measurements Aorta Doppler Measurements Proximal aorta measures2.31 x 2.36cm. in cross-sectional Peak systolic flow velocities within the proximal aorta axis. measure 61.4 cm/sec. Proximal aorta measures2.27cm. in longitudinal axis. Peak systolic flow velocities within the mid aorta measure Mid aorta measures2.67 x 2.46cm. in cross-sectional axis. 46.9 cm/sec. Mid aorta measures2.55cm. in longitudinal axis. Peak systolic flow velocities within the distal aorta Distal aorta measures2.50 x 2.41cm. in cross-sectional axis.measure 31.1 cm/sec. Distal aorta measures2.67cm. in longitudinal axis. Heterogenous plaque noted throughout abdominal aorta. Left Iliac Artery Left iliac artery measures 1.30 x 1.30 cm. in the cross-sectional axis. Left iliac artery measures 1.29 cm. in the longitudinal axis. Peak systolic velocity in the left iliac artery measures 76.0 cm/sec. Right Iliac Artery Right iliac artery measures 1.51 x 1.47 cm. in the cross-sectional axis. Right iliac artery measures 1.53 cm. in the longitudinal axis. Peak systolic velocity in the right iliac artery measures 36.8 cm/sec. Procedure Aorta IVC Iliac vasculature or bypass grafts [id number]. The exam was diagnostic. Exam performed in department. VL/AAA Screening Interpretation Summary Aorta patent, 2.67 cm ectasia present. Right iliac artery patent, 1.51 ectasia present Left iliac artery patent, 1.3 cm ectasia present Ordering Physician: Solomon Johnsno Referring Physician: Solomon Johnson Performed By: Keith Banks RVT
== END | disposition home or self-care (01) ==
LOC: CVS 08:25
PROVIDERS: PCP Family Medicine; Referring Provider Family Medicine; Visit Provider Family Medicine
DX: Z13.6 Encounter for screening for cardiovascular disorders (principal)
CPT/HCPCS: 76706

== ENCOUNTER → 2024-11-09 | Outpatient (CLI) | payer MEDICARE, MEDICAID, SELFPAY ==
[2024-11-09 12:46] LABS: Hematocrit 42.9 % (40-54); Hemoglobin 15.0 g/dL (13.0-16.5); Immature Granulocytes Count 0.020 X10^3/uL (0.0-0.0); Mean Corp Hgb Conc 35.0 g/dL (32-36); Mean Corpuscular Volume 97.1 fL (80-94); Mean Platelet Vol. 10.5 fl (6.2-12.0); NRBC Flagged by Analyzer 0 % (0-5); Platelet Count 149 K/mm3 (150-450); RBC Distribution Width CV 12.5 % (11.6-14.6); RBC Distribution Width SD 45.0 fl (35.1-43.9); Red Blood Count 4.42 M/mm3 (4.6-6.2); White Blood Count 9.3 K/mm3 (4.4-11.0)
[2024-11-09 13:04] LABS: Microalbumin,Random Urine < 12.0 mg/L (<20 mg/L)
[2024-11-09 13:21] LABS: AST(SGOT) 21 U/L (<=37); Alanine Aminotransfer ALT/SGPT 17 U/L (<=46); Albumin, Serum 4.1 g/dL (3.4-4.8); Alkaline Phosphatase 60 U/L (40-129); Anion Gap 12 (5-15); BUN 9 mg/dL (4-19); BUN/Creat Ratio 8.8 RATIO (10-20); Calcium,Total 9.5 mg/dL (7.6-11.0); Carbon Dioxide 22.7 mmol/L (21.0-32.0); Chloride 105 mmol/L (98-108); Ferritin 850 ng/mL (37-417); Globulin 2.9 g/dL (2.2-4.2); Glucose 90 mg/dL (70-99); Iron 105 ug/dL (65-175); PSA,Total - Annual Screen 0.15 ng/mL (0.02-4.00); Potassium 3.9 mmol/L (3.3-5.1); Vitamin B12 622 pg/mL (180-914); Vitamin D,25 Hydroxy 65.7 ng/mL (30-100)
[2024-11-09 13:55] LABS: Cholesterol 145 mg/dL (<=200); Low Density Lipoprotein Calc. 86 mg/dL; Triglycerides 98 mg/dL; Very Low Density Lipoprotein 20 mg/dL (5-40); cholesterol:hdl ratio screen 3.69
[2024-11-10 16:09] LABS: Hematocrit 45.6 % (37.5-51.0); Hemoglobin 15.1 g/dL (13.0-17.7); MCH 33.5 pg (26.6-33.0); MCHC 33.1 g/dL (31.5-35.7); MCV 101 fL (79-97); Percent % CD4 Pos. Lymph. 43.3 % (30.8-58.5); RDW 13.1 % (11.6-15.4)
[2024-11-12 04:07] LABS: HIV-1 RNA by PCR, Quant. < 20 copies/mL (.)
== END | disposition home or self-care (01) ==
LOC: MFPLAB 09:48
PROVIDERS: PCP Family Medicine; Referring Provider Family Medicine; Visit Provider Family Medicine
DX: Z00.00 Encounter for general adult medical examination without abnormal findings (principal); B20 Human immunodeficiency virus [HIV] disease; D64.9 Anemia, unspecified; R73.01 Impaired fasting glucose; E55.9 Vitamin D deficiency, unspecified; R63.4 Abnormal weight loss; E03.9 Hypothyroidism, unspecified; N40.0 Benign prostatic hyperplasia without lower urinary tract symptoms; Z12.5 Encounter for screening for malignant neoplasm of prostate
CPT/HCPCS: 80053; 80061; 82043; 82306; 82607; 82728; 83540; 84134; 84153; 84443; 85025; 85652; 86361; 87536; G0103

== ENCOUNTER 2024-11-10 09:41 | Outpatient (CLI) | payer MEDICARE, MEDICAID, SELFPAY ==
[2024-11-11 04:07] LABS: Prealbumin 21 mg/dL (10-36)
== END 2024-11-10 23:59 | disposition home or self-care (01) ==
LOC: MFPLAB 09:42
PROVIDERS: PCP Family Medicine; Visit Provider Family Medicine
DX: R63.4 Abnormal weight loss (principal)
CPT/HCPCS: 84134